=== PATIENT | female | born 1955 | race Caucasian/White ===

== ENCOUNTER 2024-11-29 15:39 | Emergency (ER) | payer MEDICARE, BC, SELFPAY ==
[2024-11-29 15:56] VITALS: BP 147/91; PULSE 68; RESP 16; TEMP 36.2; O2SAT 98; BMI 26.4
--- NOTE | 2024-11-29 16:27 | ED.WOUNDLAC ---
HPI - Wound/Laceration General Time Seen by Provider: 16:27 Date Seen: 11/29/24 Chief Complaint: Laceration/Wound Stated Complaint: possible infection/reaction on R arm Time Seen by Provider: 11/29/24 16:11 Source: patient, RN notes reviewed and old records reviewed Mode of arrival: ambulatory Limitations: no limitations History of Present Illness HPI narrative: 69-year-old female with history of tongue cancer, presents today with right arm pain. She had an IV put in the right wrist last week for a tongue surgery, subsequently had a lot of bruising and swelling in the area which has been improving with warm packing but then today noted increased swelling bruising more proximal to this in the right flexor forearm. She warm pack this and has gotten lot better but she called the nurse line and they told her to come in. 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 No fever, chills, nausea, vomiting, chest pain or shortness of breath. Related Data Home Medications ?Medication ?Instructions ?Recorded ?Confirmed apixaban 5 mg tablet (Eliquis) 5 mg PO BID 11/29/24 11/29/24 cholecalciferol (vitamin D3) 25 25 mcg PO DAILY 11/29/24 11/29/24 mcg (1,000 unit) capsule levothyroxine 100 mcg tablet 100 mcg PO DAILY 11/29/24 11/29/24 (Euthyrox) lisinopril .ROUTE 11/29/24 montelukast 10 mg tablet 10 mg PO DAILY 11/29/24 11/29/24 (Singulair) Allergies Allergy/AdvReac Type Severity Reaction Status Date / Time No Known Drug Allergies Allergy Verified 11/29/24 16:13 Exam Narrative: Exam Narrative: General: well nourished , NAD Head: Atraumatic and normocephalic ENT: External ears and external nose are normal Eyes: Conjunctiva clear, pupils are equal reactive, external ocular motions are intact Neck: Full spontaneous range of motion of the neck Lungs: No respiratory distress Musculoskeletal: No tenderness or deformity Neurologic: No gross focal neurologic deficits Skin: right anterior medial flexor forearm near the elbow there is an area of irregular erythema measuring about 4 cm x 2 cm with a central very tender palpable cord. Psych: Mood and affect are appropriate Const: Vital Signs, click to edit/add: Vital Signs - 24 hr 11/29/24 15:56 Temperature 97.1 F L Pulse Rate [Pulse Oximeter] 68 Respiratory Rate 16 Blood Pressure [Le ft Upper Arm] 147/91 H Pulse Oximetry 98 Oxygen Delivery Me thod Room Air Course Course ED Course: Reviewed prior emergency department visits from July 2024 which were for postoperative pain after having had tongue lesions excised. Patient seen and examined, presents today with a superficial thrombophlebitis of the right forearm. This is little proximal to place where she had IV insertion. On exam she has palpable cord with some surrounding erythema. She says this came on fairly suddenly earlier today but is already improving with warm packing. No systemic signs of infection, patient is already on anticoagulation. Is there is no induration or warmth to the area, infection is unlikely. Treatment with elevation compresses and nonsteroidals. Did consider blood cultures but patient does not have systemic sign of infection, also considered right upper extremity ultrasound but patient is already anticoagulated and exam is not consistent with DVT. Vital Signs Vital signs: Initial Vital Signs Temperature 97.1 F L 11/29/24 15:56 Temperature Source Temporal Artery Scan 11/29/24 15:56 Pulse Rate 68 11/29/24 15:56 Respiratory Rate 16 11/29/24 15:56 Blood Pressure 147/91 H 11/29/24 15:56 Blood Pressure Mean 109 H 11/29/24 15:56 Pulse Oximetry 98 11/29/24 15:56 Oxygen Delivery Method Room Air 11/29/24 15:56 Vital Signs Temperature 97.1 F L 11/29/24 15:56 Pulse Rate 68 11/29/24 15:56 Respiratory Rate 16 11/29/24 15:56 Blood Pressure 147/91 H 11/29/24 15:56 Pulse Oximetry 98 11/29/24 15:56 Oxygen Delivery Method Room Air 11/29/24 15:56 Temperature 97.1 F L 11/29/24 15:56 Pulse Rate 68 11/29/24 15:56 Respiratory Rate 16 11/29/24 15:56 Blood Pressure 147/91 H 11/29/24 15:56 Pulse Oximetry 98 11/29/24 15:56 Oxygen Delivery Method Room Air 11/29/24 15:56 Discharge Plan Discharge Clinical Impression: Superficial thrombophlebitis of right upper extremity Patient Disposition: Home, Self-Care Condition: Stable Instructions: Superficial Thrombophlebitis (ED) Additional Instructions: Continue blood thinners. Apply warm pack as you have been doing. Follow-up if this gets significantly worse or you develop signs of infection including fever or chills. Activity Level: Activity as Tolerated Discharge Diet: Regular Prescriptions: No Action levothyroxine [Euthyrox] 100 mcg tablet 100 mcg PO DAILY Eliquis 5 mg tablet 5 mg PO BID lisinopril .ROUTE montelukast [Singulair] 10 mg tablet 10 mg PO DAILY cholecalciferol (vitamin D3) 25 mcg (1,000 unit) capsule 25 mcg PO DAILY Stand Alone Forms: [email or web address] Info Instructions
--- OUTSIDE RECORDS SUMMARY | 2024-11-29 17:09 | XMS_ITS | Encounter Summary ---
Author Organization [place] Address [address] [place] [address] Care Team Providers Care Chief Talent Officer Name Role Phone Wilber Mittal Primary Care Provider Maxi Tate MD Unavailable [phone] Lela Zapata RN Unavailable Unavailable Mini Frazier MD Unavailable [phone] Nguyen Neal PA-C Unavailable [phone] Maxi Tate MD Unavailable [phone] Mini Frazier MD Unavailable [phone] Mickey Mills MD Primary Care Provider Encounter Details Date Type Department Care Team (Late st Contact Info) Description 01/20/2019 MyC Medical Advice [facility] Ear Nose and Throat [address] [facility] [address] 4th [place] [address] Lela Zapata, RN Social History Tobacco Use Types Packs/Day Years Used Date Smoking Tobacco: Former Cigarettes 0.5 40 0 10/27/1972 - 10/27/2012 Smokeless Tobacco: Never Alcohol Use Standard Drinks/Week Comments Yes 0 (1 standard drink = 0.6 oz pur e alcohol) minimal PHQ-2 Answer Date Recorded PHQ-2 Score 4 10/12/2018 Comments No Sex and Gender Information Value Date Recorded Sex Assigned at Female 02/16/2021 5:23 PM CDT Legal Sex Female 5:02 PM REHABILITATION THERAPY AIDE Gender Identity Female 10/22/2019 10:44 AM REHABILITATION THERAPY AIDE Sexual Orientation Straight 06/04/2019 11 :41 AM CDT documented as of this encounter Plan of Treatment Upcoming Encounters Date Type Department Care Team (Late st Contact Info) Description 12/26/2024 9:30 AM CDT Office Visit [facility] Pain Management [place] [address] [facility] [address] [place] [address] Galina Lopez APRN WIRE BRUSH MAKER [address] [facility] 101 [place], [place] [phone] documented as of this encounter Visit Diagnoses Not on filedocumented in this encounter Additional Health Concerns Assessment Noted Time PHQ-9 Depression Total Score: 6 10/13/19 19 7:05 AM REHABILITATION THERAPY AIDE documented as of this encounter Care Teams Chief Talent Officer Relationship Specialty Start Date End Date Wilber Mittal PCP - General 09/15/12 07/12/23 Mickey Mills MD [address] [place] [address] [phone] PCP - General 07/13/23 Maxi Tate MD [address] [place] [address] [id number] Otolaryngology 10/31/16 Lela Zapata, SHAREE Specialty Paint Mixer ENT-Otolaryngology 01/18/19 Mini Frazier MD [address] [place] [address] [phone] Gastroenterology 08/05/19 Nguyen Neal, PA-C [address] [place] [address] 60968 Assigned Pediatric Specialist Provider 06/08/20 12/08/20 Maix Tate MD [address] [place] [address] [phone] Assigned Surgical Provider 06/08/20 Mini Frazier MD [address] [place] [address] [phone] Assigned Gastroenterology Provider 06/08/20 04/06/21 documented as of this encounter
--- OUTSIDE RECORDS SUMMARY | 2024-11-29 17:09 | XMS_ITS | Encounter Summary ---
Author Organization [place] Address [address] [place] [address] Care Team Providers Care Drip Molder Name Role Phone Wilber Mittal Primary Care Provider Maxi Tate MD Unavailable [phone] Lela Zapata RN Unavailable Unavailable Mini Frazier MD Unavailable [phone] Nguyen Neal PA-C Unavailable [phone] Maxi Tate MD Unavailable [phone] Mini Frazier MD Unavailable [phone] Mickey Mills MD Primary Care Provider [phone] Encounter Details Date Type Department Care Team (Late st Contact Info) Description 06/09/2019 [facility] Medical Advice [facility] Ear Nose and Throat [address] [facility] [address] 4th [place] [address] Maxi Tate MD [address] [facility] 396 [place] [address] Social History Tobacco Use Types Packs/Day Years Used Date Smoking Tobacco: Former Cigarettes 0.5 40 0 10/27/1972 - 10/27/2012 Smokeless Tobacco: Never Alcohol Use Standard Drinks/Week Comments Yes 0 (1 standard drink = 0.6 oz pur e alcohol) minimal PHQ-2 Answer Date Recorded PHQ-2 Score 2 05/03/2019 Comments No Sex and Gender Information Value Date Recorded Sex Assigned at Female 02/16/2021 5:23 PM CDT Legal Sex Female 5:02 PM BINDING CUTTER Gender Identity Female 10/22/2019 10:44 AM BINDING CUTTER Sexual Orientation Straight 06/04/2019 11 :41 AM CDT documented as of this encounter Plan of Treatment Upcoming Encounters Date Type Department Care Team (Late st Contact Info) Description 12/26/2024 9:30 AM CDT Office Visit [facility] Pain Management [place] [address] [place] [address] [place] [address] Galina Lopez APRN SALES PLANNING ANALYST [address] [facility] 101 [place] [address] documented as of this encounter Visit Diagnoses Not on filedocumented in this encounter Additional Health Concerns Assessment Noted Time PHQ-9 Depression Total Score: 6 10/13/19 19 7:05 AM BINDING CUTTER documented as of this encounter Care Teams Drip Molder Relationship Specialty Start Date End Date Wilber Mittal PCP - General 09/15/12 07/12/23 Mickey Mills MD [address] [place] [address] [phone] PCP - General 07/13/23 Maxi Tate MD [address] [facility] 396 [place], [place] [phone] Otolaryngology 10/31/16 Lela Zapata, RN Specialty Program Or Project Administrator ENT-Otolaryngology 01/18/19 Mini Frazier MD 909 [place] [address] Gastroenterology 08/05/19 Nguyen Neal PA-C [address] [place] [address] [phone] Assigned Pediatric Specialist Provider 06/08/20 12/08/20 Maxi Tate MD [address] [place] [address] Assigned Surgical Provider 06/08/20 Mini Frazier MD [address] [place] [address] [phone] Assigned Gastroenterology Provider 06/08/20 04/06/21 documented as of this encounter
--- OUTSIDE RECORDS SUMMARY | 2024-11-29 17:09 | XMS_ITS | Encounter Summary ---
Author Organization [place] Address [address] [place] [address] Care Team Providers Care Stratigraphy Teacher Name Role Phone Wilber Mittal Primary Care Provider [phone] Maxi Tate MD Unavailable [phone] Lela Zapata RN Unavailable Unavailable Mini Frazier MD Unavailable [phone] Nguyen Neal PA-C Unavailable [phone] Maxi Tate MD Unavailable [phone] Mini Frazier MD Unavailable [phone] Mickey Mills MD Primary Care Provider Encounter Details Date Type Department Care Team (Late st Contact Info) Description 10/08/2016 MyC Medical Advice [facility] Ear Nose and Throat [address] [facility] [address] 4th [place] [address] Maxi Tate MD 420 [facility] 396 [place] [address] Social History Tobacco Use Types Packs/Day Years Used Date Smoking Tobacco: Former Cigarettes 0.5 40 0 10/27/1972 - 10/27/2012 Smokeless Tobacco: Never Alcohol Use Standard Drinks/Week Comments Yes 0 (1 standard drink = 0.6 oz pur e alcohol) minimal Comments No Sex and Gender Information Value Date Recorded Sex Assigned at Female 02/16/2021 5:23 PM CDT Legal Sex Female 5:02 PM OIL BURNER REPAIRER Gender Identity Female 10/22/2019 10:44 AM OIL BURNER REPAIRER Sexual Orientation Straight 06/04/2019 11 :41 AM CDT documented as of this encounter Plan of Treatment Upcoming Encounters Date Type Department Care Team (Late st Contact Info) Description 12/26/2024 9:30 AM CDT Office Visit [facility] [place] [address] [place] [address] [place] [address] Galina Lopez APRN TOWER HAND 1600 [facility] 101 [place] [address] documented as of this encounter Visit Diagnoses Not on filedocumented in this encounter Care Teams Stratigraphy Teacher Relationship Specialty Start Date End Date Wilber Mittal PCP - General 09/15/12 07/12/23 Mickey Mills MD [address] [place] [phone] PCP - General 07/13/23 Maix Tate MD [address] [place] [address] 396 [place], [place] 160[address] Otolaryngology 10/31/16 Lela Zapata, SHAREE Specialty Biology Research Assistant ENT-Otolaryngology 01/18/19 Mini Frazier MD [address] [place] [address] [phone] Gastroenterology 08/05/19 Nguyen Neal, PA-C [address] [place] [address] [phone] Assigned Pediatric Specialist Provider 06/08/20 12/08/20 Maxi Tate MD [address] [place] [address] 396 [place], [place] [phone] Assigned Surgical Provider 06/08/20 Mini Frazier MD [address] [place] [address] Assigned Gastroenterology Provider 06/08/20 04/06/21 documented as of this encounter
--- OUTSIDE RECORDS SUMMARY | 2024-11-29 17:09 | XMS_ITS | Encounter Summary ---
Author Organization [place] Address [address] [place] [address] Care Team Providers Care Cloth Washer Name Role Phone Wilber Mittal Primary Care Provider Maxi Tate MD Unavailable Lela Zapata RN Unavailable Unavailable Mini Frazier MD Unavailable [phone] Nguyen Neal PA-C Unavailable [phone] Maxi Tate MD Unavailable [phone] Mini Frazier MD Unavailable [phone] Mickey Mills MD Primary Care Provider Reason for Visit * Reason Onset Date Comments Refill Request 06/13/2019 Encounter Details Date Type Department Care Team (Late st Contact Info) Description 06/13/2019 MyC Refill [facility] Ear Nose and Throat [address] [facility] 4th [place] [address] Nguyen Neal PA-C 909 [place] [address] Refill Request Social History Tobacco Use Types Packs/Day Years [...] PM CDT Legal Sex Female 5:02 PM TAX FORM PREPARER Gender Identity Female 10/22/2019 10:44 AM TAX FORM PREPARER Sexual Orientation Straight 06/04/2019 11 :41 AM CDT documented as of this encounter Plan of Treatment Upcoming Encounters Date Type Department Care Team (Late st Contact Info) Description 12/26/2024 9:30 AM CDT Office Visit [facility] Pain Management [place] [address] [place] [address] [address] [place] [address] Galina Lopez APRN SHOWER ATTENDANT 1600 [facility] 101 [place] [address] documented as of this encounter Visit Diagnoses Diagnosis Lesion of tongue Other specified conditions of the tongue Tongue pain 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 documented in this encounter Additional Health Concerns Assessment Noted Time PHQ-9 Depression Total Score: 6 10/13/19 19 7:05 AM TAX FORM PREPARER documented as of this encounter Care Teams Cloth Washer Relationship Specialty Start Date End Date Wilber Mittal PCP - General 09/15/12 07/12/23 Mickey Mills MD [address] [place] [address] [phone] PCP - General 07/13/23 Maxi Tate MD [address] [place] [address] 396 [place] [address] Otolaryngology 10/31/16 Lela Zapata, SHAREE Specialty Driver Starting Gate ENT-Otolaryngology 01/18/19 Mini Frazier MD 909 [place] [address] Gastroenterology 08/05/19 Nguyen Neal PA-C [address] [place] [address] Assigned Pediatric Specialist Provider 06/08/20 12/08/20 Maxi Tate MD [address] [place] [address] Assigned Surgical Provider 06/08/20 Mini Frazier MD [address] [place] [address] Assigned Gastroenterology Provider 06/08/20 04/06/21 documented as of this encounter
--- OUTSIDE RECORDS SUMMARY | 2024-11-29 17:09 | XMS_ITS | Encounter Summary ---
Author Organization [place] Address [address] [place] [address]. [place] [address] Care Team Providers Care Supervisor Self Service Store Name Role Phone Wilber Mittal Primary Care Provider Maxi Tate MD Unavailable [phone] Lela Zapata RN Unavailable Unavailable Mini Frazier MD Unavailable [phone] Nguyen Neal PA-C Unavailable [phone] Maxi Tate MD Unavailable [phone] Mini Frazier MD Unavailable [phone] Mickey Mills MD Primary Care Provider [phone] Encounter Details Date Type Department Care Team (Late st Contact Info) Description 06/23/2020 MyC Medical Advice [facility] Th[facility] [place] [address] [facility] [address] 4th [place] [address] Maxi aTte MD [address] [place] [address] 396 [place] [address] Social History Tobacco Use Types Packs/Day Years Used Date Smoking Tobacco: Former Cigarettes 0.5 40 0 10/27/1972 - 10/27/2012 Smokeless Tobacco: Never Alcohol Use Standard Drinks/Week Comments Not Currently 0 (1 standard drink = 0.6 oz pur e alcohol) PHQ-2 Answer Date Recorded PHQ-2 Score 2 01/03/2020 Comments No Sex and Gender Information Value Date Recorded Sex Assigned at Female 02/16/2021 5:23 PM CDT Legal Sex Female 5:02 PM CUSTOMER SERVICE DISPATCHER Gender Identity Female 10/22/2019 10:44 AM CUSTOMER SERVICE DISPATCHER Sexual Orientation Straight 06/04/2019 11 :41 AM CDT COVID-19 Exposure Response Date Recorded In the last month, have you been in contact with someone who was confirmed or suspected to have Coronavirus / COVID-19? No / Unsure 05/29/2020 2:20 PM CDT documented as of this encounter Plan of Treatment Upcoming Encounters Date Type Department Care Team (Late st Contact Info) Description 12/26/2024 9:30 AM CDT Office Visit [facility] Pain Management [place] [address] [facility] [address] [place] [address] Galina Lopez APRN VISCOSE DEPARTMENT WORKER 1600 [facility] 101 [place] [address] documented as of this encounter Visit Diagnoses Not on filedocumented in this encounter Additional Health Concerns Assessment Noted Time PHQ-9 Depression Total Score: 6 08/02/20 19 10:51 AM CUSTOMER SERVICE DISPATCHER documented as of this encounter Care Teams Supervisor Self Service Store Relationship Specialty Start Date End Date Wilber Mittal PCP - General 09/15/12 07/12/23 Mickey Mills MD [address] [place] [address] [phone] PCP - General 07/13/23 Maxi Tate MD [address] [place] [address] 396 [place] [address] Otolaryngology 10/31/16 Lela Zapata, SHAREE Specialty Pool Table Mechanic ENT-Otolaryngology 01/18/19 Mini Frazier MD 909 [place] [address] Gastroenterology 08/05/19 Nguyen Neal PA-C [address] [place] [address] Assigned Pediatric Specialist Provider 06/08/20 12/08/20 Maxi Tate MD [address] [place] [address] [phone] Assigned Surgical Provider 06/08/20 Mini Frazier MD [address] [place] [address] Assigned Gastroenterology Provider 06/08/20 04/06/21 documented as of this encounter
--- OUTSIDE RECORDS SUMMARY | 2024-11-29 17:09 | XMS_ITS | Encounter Summary ---
Author Organization [place] Address [address] [place] [address] Care Team Providers Care Group Work Program Aide Name Role Phone Wilber Mittal Primary Care Provider Maxi Tate MD Unavailable [phone] Lela Zapata RN Unavailable Unavailable Mini Frazier MD Unavailable [phone] Nguyen Neal PA-C Unavailable [phone] Maxi Tate MD Unavailable [phone] Mini Frazier MD Unavailable [phone] Mickey Mills MD Primary Care Provider Encounter Details Date Type Department Care Team (Late st Contact Info) Description 06/15/2020 MyC Medical Advice [address] 5th [place] [address] Veronica Doan, RN Social History Tobacco Use Types Packs/Day [...] PM CDT Legal Sex Female 5:02 PM WHITE SPOOLER Gender Identity Female 10/22/2019 10:44 AM WHITE SPOOLER Sexual Orientation Straight 06/04/2019 11 :41 AM [...] Description 12/26/2024 9:30 AM CDT Office Visit [facility] [place] [address] [place] [address] [place] [address] Galina Lopez APRN GLASS CALIBRATOR 1600 [facility] 101 [place] [address] documented as of this encounter Visit Diagnoses Not on filedocumented in this encounter Additional Health Concerns Assessment Noted Time PHQ-9 Depression Total Score: 6 08/02/20 19 10:51 AM WHITE SPOOLER documented as of this encounter Care Teams Group Work Program Aide Relationship Specialty Start Date End Date Wilber Mittal PCP - General 09/15/12 07/12/23 Mickey Mills MD [address] [place] [phone] PCP - General 07/13/23 Maxi Tate MD 420 [facility] 396 [place], [place] [phone] Otolaryngology 10/31/16 Lela Zapata, SHAREE Specialty Division Roadmaster ENT-Otolaryngology 01/18/19 Mini Frazier MD [address] [place] [address] Gastroenterology 08/05/19 Nguyen Neal, WENC [address] [place] [address] Assigned Pediatric Specialist Provider 06/08/20 12/08/20 Maxi Tate MD [address] [place] [address] Assigned Surgical Provider 06/08/20 Mini Frazier MD [address] [place] [address] Assigned Gastroenterology Provider 06/08/20 04/06/21 documented as of this encounter
--- OUTSIDE RECORDS SUMMARY | 2024-11-29 17:09 | XMS_ITS | Encounter Summary ---
Author Organization [place] Address [address] [place] [address] Care Team Providers Care Supervisor Industrial Garment Name Role Phone Wilber Mittal Primary Care Provider [phone] Maxi Tate MD Unavailable [phone] Lela Zapata RN Unavailable Unavailable Mini Frazier MD Unavailable [phone] Nguyen Neal PA-C Unavailable [phone] Maxi Tate MD Unavailable [phone] Mini Frazier MD Unavailable [phone] Mickey Mills MD Primary Care Provider [phone] Encounter Details Date Type Department Care Team (Late st Contact Info) Description 11/09/2018 [facility] Medical [facility] and Th[facility] [address] [facility] [address] 4th [place] [address] Maxi Tate MD 420 [facility] 396 [place] [address] Social History Tobacco Use Types [...] PM CDT Legal Sex Female 5:02 PM JOURNAL ENTRY AUDIT CLERK Gender Identity Female 10/22/2019 10:44 AM JOURNAL ENTRY AUDIT CLERK Sexual Orientation Straight 06/04/2019 11 :41 AM CDT documented as of this encounter Plan of Treatment Upcoming Encounters Date Type Department Care Team (Late st Contact Info) Description 12/26/2024 9:30 AM CDT Office Visit [facility] Pain Management [place] [address] [place] [address] [place] [address] Galina Lopez APRN WELL TENDER 1600 [facility] [address] [place] [address] documented as of this encounter Visit Diagnoses Not on filedocumented in this encounter Additional Health Concerns Assessment Noted Time PHQ-9 Depression Total Score: 6 10/13/19 19 7:05 AM JOURNAL ENTRY AUDIT CLERK documented as of this encounter Care Teams Supervisor Industrial Garment Relationship Specialty Start Date End Date Wilber Mittal PCP - General 09/15/12 07/12/23 Mickey Mills MD [address] [place] [phone] PCP - General 07/13/23 Maxi Tate MD 420 [facility] 396 [place], [place] [phone] Otolaryngology 10/31/16 Lela Zapata, RN Specialty Manager Cardiac Cath ENT-Otolaryngology 01/18/19 Mini Frazier MD 909 [place] [address] Gastroenterology 08/05/19 Nguyen Neal PA-C [address] [place] [address] [phone] Assigned Pediatric Specialist Provider 06/08/20 12/08/20 Maxi Tate MD [address] [place] [address] Assigned Surgical Provider 06/08/20 Mini Frazier MD [address] [place] [address] [phone] Assigned Gastroenterology Provider 06/08/20 04/06/21 documented as of this encounter
--- OUTSIDE RECORDS SUMMARY | 2024-11-29 17:09 | XMS_ITS | Encounter Summary ---
Author Organization [facility] Address [address] [place] [address] Care Team Providers Care Procurement Specialist Name Role Phone Wilber Mittal Primary Care Provider Maxi [place] MD Unavailable [phone] Lela Zapata RN Unavailable Unavailable Mini Frazier MD Unavailable [phone] Nguyen Neal PA-C Unavailable [phone] Maxi [place] MD Unavailable [phone] Mini Frazier MD Unavailable [phone] Mickey Mills MD Primary Care Provider Encounter Details Date Type Department Care Team (Late st Contact Info) Description 06/27/2019 [facility] [place] [facility] and Th[facility]at [address] [facility] [address] 4th [place] [address] Maxi [place] MD 420 [facility] 396 [place] [address] Social History Tobacco Use Types [...] PM CDT Legal Sex Female 5:02 PM PERSONAL FINANCIAL REPRESENTATIVE Gender Identity Female 10/22/2019 10:44 AM PERSONAL FINANCIAL REPRESENTATIVE Sexual Orientation Straight 06/04/2019 11 :41 AM CDT documented as of this encounter Plan of Treatment Upcoming Encounters Date Type Department Care Team (Late st Contact Info) Description 12/26/2024 9:30 AM CDT Office Visit [facility] [place] [address] [place] [address] Galina Lopez APRN STEEL SHOT HEADER OPERATOR [address] [facility] [address] [place] [address] documented as of this encounter Visit Diagnoses Not on filedocumented in this encounter Additional Health Concerns Assessment Noted Time PHQ-9 Depression Total Score: 6 10/13/19 19 7:05 AM PERSONAL FINANCIAL REPRESENTATIVE documented as of this encounter Care Teams Procurement Specialist Relationship Specialty Start Date End Date Wilber Mittal PCP - General 09/15/12 07/12/23 Mickey Mills MD [address] [place] [address] [phone] PCP - General 07/13/23 Maxi [place] MD 420 [facility] 396 [place], [place] 402[address] Otolaryngology 10/31/16 Lela Zapata, RN Specialty Burrer Machine ENT-Otolaryngology 01/18/19 Mini Frazier MD 909 [place] [address] Gastroenterology 08/05/19 Nguyen Neal PA-C [address] [place] [address] [phone] Assigned Pediatric Specialist Provider 06/08/20 12/08/20 Maxi Tate MD [address] [place] [address] Assigned Surgical Provider 06/08/20 Mini Frazeir MD [address] [place] [address] [phone] Assigned Gastroenterology Provider 06/08/20 04/06/21 documented as of this encounter
--- OUTSIDE RECORDS SUMMARY | 2024-11-29 17:09 | XMS_ITS | Encounter Summary ---
Author Organization [facility] Address [address] [place] [address] Care Team Providers Care Drying Rack Changer Name Role Phone Wilber Mittal Primary Care Provider Maxi [place] MD Unavailable [phone] Lela Zapata RN Unavailable Unavailable Mini Frazier MD Unavailable [phone] Nguyen Neal PA-C Unavailable [phone] Maxi [place] MD Unavailable [phone] Mini Frazier MD Unavailable [phone] Mickey Mills MD Primary Care Provider Encounter Details Date Type Department Care Team (Late st Contact Info) Description 12/25/2018 [facility] Medical Advice [facility] Ear Nose and Throat [address] [facility] [address] 4th [place] [address] Maxi [place] MD 420 [facility] 396 [place] [address] Social History Tobacco Use Types [...] PM CDT Legal Sex Female 5:02 PM CYCLE TOURING GUIDE Gender Identity Female 10/22/2019 10:44 AM CYCLE TOURING GUIDE Sexual Orientation Straight 06/04/2019 11 :41 AM CDT documented as of this encounter Plan of Treatment Upcoming Encounters Date Type Department Care Team (Late st Contact Info) Description 12/26/2024 9:30 AM CDT Office Visit [facility] [place] [address] [place] [address] Galina Lopez APRN APARTMENT ASSISTANT MANAGER 1600 [facility] [address] [place] [address] documented as of this encounter Visit Diagnoses Not on filedocumented in this encounter Additional Health Concerns Assessment Noted Time PHQ-9 Depression Total Score: 6 10/13/19 19 7:05 AM CYCLE TOURING GUIDE documented as of this encounter Care Teams Drying Rack Changer Relationship Specialty Start Date End Date Wilber Mittal PCP - General 09/15/12 07/12/23 Mickey Mills MD [address] [place] [address] [phone] PCP - General 07/13/23 Maxi [place] MD 420 [facility] 396 [place], [place] 324945 Otolaryngology 10/31/16 Lela Zapata, RN Specialty Quartz Mounter ENT-Otolaryngology 01/18/19 Mini Frazier MD 909 [place] [address] Gastroenterology 08/05/19 Nguyen Neal PA-C [address] [place] [address] [phone] Assigned Pediatric Specialist Provider 06/08/20 12/08/20 Maxi Tate MD [address] [place] [address] Assigned Surgical Provider 06/08/20 Mini Frazier MD [address] [place] [address] [phone] Assigned Gastroenterology Provider 06/08/20 04/06/21 documented as of this encounter
--- OUTSIDE RECORDS SUMMARY | 2024-11-29 17:09 | XMS_ITS | Encounter Summary ---
Author Organization [facility] Address [address] [place] [address] Care Team Providers Care Escalator Attendant Name Role Phone Wilber Mittal Primary Care Provider [phone] Maxi [place] MD Unavailable [phone] Lela Zapata RN Unavailable Unavailable Mini Frazier MD Unavailable [phone] Nguyen Neal PA-C Unavailable [phone] Maxi [place] MD Unavailable [phone] Mini Frazier MD Unavailable [phone] Mickey Mills MD Primary Care Provider [phone] Encounter Details Date Type Department Care Team (Late st Contact Info) Description 01/28/2019 [facility] Medical Advice [facility] Ear Nose and Throat 909 [facility] [address] 4th [place] [address] Lela Zapata, RN Social History [...] PM CDT Legal Sex Female 5:02 PM MAILROOM PERSONNEL Gender Identity Female 10/22/2019 10:44 AM MAILROOM PERSONNEL Sexual Orientation Straight 06/04/2019 11 :41 AM CDT documented as of this encounter Plan of Treatment Upcoming Encounters Date Type Department Care Team (Late st Contact Info) Description 12/26/2024 9:30 AM CDT Office Visit [facility] [place] [address] [facility] [address] [place] [address] Galina Lopez APRN SEAFOOD FISHERMAN 1600 [facility] 101 [place], [place] [phone] documented as of this encounter Visit Diagnoses Not on filedocumented in this encounter Additional Health Concerns Assessment Noted Time PHQ-9 Depression Total Score: 6 10/13/19 19 7:05 AM MAILROOM PERSONNEL documented as of this encounter Care Teams Escalator Attendant Relationship Specialty Start Date End Date Wilber Mittal PCP - General 09/15/12 07/12/23 Mickey Mills MD [address] [place] [address] [phone] PCP - General 07/13/23 Maxi [place] MD [address] [place] [address] 032235 Otolaryngology 10/31/16 Lela Zapata, SHAREE Specialty Rn Recruitment ENT-Otolaryngology 01/18/19 Mini Frazier MD [address] [place] [address] [phone] Gastroenterology 08/05/19 Nguyen Neal, PA-C [address] [place] [address] Assigned Pediatric Specialist Provider 06/08/20 12/08/20 Maxi [place] MD [address] [place] [address] [phone] Assigned Surgical Provider 06/08/20 Mini Frazier MD [address] [place] [address] 555115 Assigned Gastroenterology Provider 06/08/20 04/06/21 documented as of this encounter
--- OUTSIDE RECORDS SUMMARY | 2024-11-29 17:09 | XMS_ITS | Clinical Summary ---
Author Organization [facility] Address [address] [place] [address] Care Team Providers Care Grain Loader Name Role Phone Mickey Mills Primary Care Provider Allergies Active Allergy Reactions Criticality Noted Date Comments Warfarin Tongue Swelling High 08/11/2024 Medications sodium chloride 0.9% 0.9 % irrigation Irrigate 20 cc each nostril QID X 2 month supply 16690 mL 3 08/24/19 13 Active levothyroxine (SYNTHROID) 75 mcg tablet TAKE 1 TABLET BY MOUTH EVERY MORNING 30 tablet 6 08/22/19 14 Active PROAIR HFA 90 mcg/actuation inhaler INHALE 2 PUFFS BY MOUTH EVERY 4 TO 6 HOURS NEEDED 8.5 g 2 03/05/20 14 Active acetaminophen (TYLENOL) 325 mg tablet Take 325-650 mg by mouth every 6 hours if needed. Active Eliquis 5 mg tabletIndications :Infarction Spleen Take 5 mg by mouth two times daily. 07/13/20 24 Active gabapentin (NEURONTIN) 100 mg capsule Take 100 mg by mouth three times daily. 02/23/20 24 Active lisinopriL (PRINIVIL; ZESTRIL) 20 mg tablet Take 20 mg by mouth once daily. 07/13/20 24 025 Active montelukast (SINGULAIR) 10 mg tablet Take 1 Tablet by mouth at bedtime. 06/13/20 24 Active nystatin (MYCOSTATIN) 100,000 unit/mL suspension TAKE 1 TEASPOONFUL BY MOUTH FOUR TIMES A DAY Active omeprazole (PRILOSEC) 20 mg Delayed-Release capsule Take 20 mg by mouth once daily before a meal. Active ondansetron (ZOFRAN ODT) 4 mg disintegrating tablet Take 4 mg by mouth every 8 hours if needed. 08/01/20 24 Active sennosides-docusa te (SENOKOT S) (8.6-50 mg) tablet Take 1-2 Tablets by mouth two times daily. 08/01/20 Active cholecalciferol (Vitamin D) 1,000 unit tablet Take 1 Tablet (25 mcg) by mouth once daily. 90 Tablet 1 5 1:54 PM BUFFER CHROME 09/20/19 25 Active Lidocaine Viscous 2 % liquid Swish and spit 15 mL by mouth every 3 hours if needed for pain. Max 8 doses/24 hour period. 500 mL 3 5 4:14 PM CDT 11/16/19 25 Active oxyCODONE 5 mg immediate release tablet Take 1 Tablet (5 mg) by mouth every 3 hours if needed for pain. 30 Tablet 5 3:24 PM CDT 11/16/19 25 Active magic mouthwash 1:1:1 (diphen 12.5mg/5mL-lidoca ine 2%-maalox [id number]/5ml) (AMB MIX) Swish and swallow 10 mL by mouth every 6 hours if needed for mouth sores. Does not require refrigeration but feels better on sores when kept cold. 500 mL 2 11/25/19 25 Active Lidocaine Viscous 2 % liquid Swish and spit 15 mL by mouth every 4 hours if needed. SWISH AND SPIT 15MLS IN MOUTH EVERY 4 HOURS NEEDED FOR PAIN; MAX 8 DOSES / 24HRS PERIOD. 025 Discontin ued(Reord er (E-cancel not sent)) magic mouthwash 1:1:1 (diphen 12.5mg/5mL-lidoca ine 2%-maalox [id number]/5ml) (AMB MIX)Indications:M outh pain,Postoperativ e pain Take 5 mL by mouth every 4 hours if needed for Mouth Sores. 500 mL 3 5 3:43 PM CDT 08/12/20 24 025 Discontin ued(Reord er (E-cancel not sent)) rx oxyCODONE 5 mg (ROXICODONE) tablet (ED DC MED)Indications:M outh pain,Postoperativ e pain Take 1-2 Tablets (5-10 mg) by mouth every 4 hours if needed for Pain. 4 Tablet 08/12/20 24 025 Discontin ued(Reord er (E-cancel not sent)) oxyCODONE (ROXICODONE) 5 mg immediate release tabletIndications :Mouth pain Take 1-2 Tablets (5-10 mg) by mouth every 4 hours if needed for Pain. 13 Tablet 08/12/20 24 025 Discontin ued(Reord er (E-cancel not sent)) oxyCODONE (ROXICODONE) 5 mg immediate release tablet Take 1 Tablet (5 mg) by mouth every 4 hours if needed for pain. 30 Tablet 5 2:39 PM BUFFER CHROME 08/23/19 025 Discontin ued(Reord er (E-cancel not sent)) Active Problems Problem Noted Date Diagnosed Date Personal history of colonic polyps 12/06/2012 Personal history of colonic polyps 12/06/2012 Tongue cancer Family History Medical History Relation Name Comments Cancer Father back Hypertension Father Cancer-breast Maternal Aunt Cancer-colon Maternal Aunt Diabetes Mother Heart Disease Mother Osteoporosis Mother Heart Disease Paternal Uncle Cancer Sister bladder Hypertension Sister Stroke Sister Relation Name Status Comments Father Maternal Aunt Mother Paternal Uncle Sister Social History Tobacco Use Types Packs/Day Years Used Date Smoking Tobacco: Former Smokeless Tobacco: Never Tobacco Cessation:Ready to Q uit: No; Counseling Given: Yes Alcohol Use Standard Drinks/Week Comments No 0 (1 standard drink = 0.6 oz pur e alcohol) Interpersonal Safety Answer Date Record ed Are you being hit, kicked, p ushed or yelled at (see row info)? No 08/11/2024 Interpersonal Safety Abuse 12 - 18 Not on file 08/11/2024 Interpersonal Safety Ambulatory Vulnerability No t on file 08/11/2024 Comments No Sex and Gender Information Value Date Recorded Sex Assigned at Not on file Legal Sex Female 8:27 AM BUFFER CHROME Gender Identity Not on file Sexual Orientation Not on file Occupation Industry Job Start Date Job End Date Not on file Not on file Not on file Not on file Obstetrics History Last Filed Vital Signs Vital Sign Reading Time Taken Comments Blood Pressure 113/72 08/12/2024 12:52 AM BUFFER CHROME Pulse 60 08/12/2024 12:52 AM BUFFER CHROME Temperature 36.1 C (97 F) 08/11/2024 11:55 PM BUFFER CHROME Respiratory Rate 14 08/12/2024 12:52 AM BUFFER CHROME Oxygen Saturation 94% 08/12/2024 12:52 AM BUFFER CHROME Inhaled Oxygen Concentration - - Weight 71.7 kg (158 lb) 08/11/2024 11:53 PM BUFFER CHROME Height 162.6 cm (5' 4) 08/11/2024 11:53 PM BUFFER CHROME Body Mass Index 27.12 08/11/2024 11:53 PM BUFFER CHROME Plan of Treatment Health Maintenance Due Date Last Done Comments Influenza Vaccine (Season Ended) 2025 RSV vaccine for adults or pr egnancy (1 - 1-dose 75+ series) 2029 Insurance [place] ONLY MEDICARE PART B HB ONLY MEDICARE PART A HB ONLY [place] BL[place] MR PB ONLY Care Teams Grain Loader Relationship Specialty Start Date End Date Mickey Mills MBBS [address] [place] [address] [place] [address] PCP - General Family Practice 12/03/20
--- OUTSIDE RECORDS SUMMARY | 2024-11-29 17:09 | XMS_ITS | Encounter Summary ---
Author Organization [facility] Address [address] [place] [address] Care Team Providers Care Gas Pumper Name Role Phone Wilber Mittal Primary Care Provider [phone] Maxi Tate MD Unavailable [phone] Lela Zapata RN Unavailable Unavailable Mini Frazier MD Unavailable [phone] Nguyen Neal PA-C Unavailable [phone] Maxi Tate MD Unavailable [phone] Mini Frazier MD Unavailable [phone] Mickey Mills MD Primary Care Provider Encounter Details Date Type Department Care Team (Late st Contact Info) Description 04/23/2019 [facility] Medical Advice [facility] Th[facility]at 9[address] [facility] [address] 4th [place] [address] Maxi Tate MD 420 [facility] 396 [place] [address] Social History Tobacco Use Types [...] PM CDT Legal Sex Female 5:02 PM SUPERVISOR QUILTING Gender Identity Female 10/22/2019 10:44 AM SUPERVISOR QUILTING Sexual Orientation Straight 06/04/2019 11 :41 AM CDT documented as of this encounter Plan of Treatment Upcoming Encounters Date Type Department Care Team (Late st Contact Info) Description 12/26/2024 9:30 AM CDT Office Visit [facility] Pain Management [place] [address] [place] [address] Galina Lopez APRN RESIDENCE LIFE DIRECTOR 1600 [facility] [address] [place] [address] documented as of this encounter Visit Diagnoses Not on filedocumented in this encounter Additional Health Concerns Assessment Noted Time PHQ-9 Depression Total Score: 6 10/13/19 19 7:05 AM SUPERVISOR QUILTING documented as of this encounter Care Teams Gas Pumper Relationship Specialty Start Date End Date Wilber Mittal PCP - General 09/15/12 07/12/23 Mickey Mills MD [address] [place] [address] [phone] PCP - General 07/13/23 Maxi Tate MD 420 [facility] 396 [place], [place] [phone] Otolaryngology 10/31/16 Lela Zapata, RN Specialty Care Transport Nurse ENT-Otolaryngology 01/18/19 Mini Frazier MD 909 [place] [address] Gastroenterology 08/05/19 Nguyen Neal PA-C [address] [place] [address] [phone] Assigned Pediatric Specialist Provider 06/08/20 12/08/20 Maxi Tate MD [address] [place] [address] Assigned Surgical Provider 06/08/20 Mini Frazier MD [address] [place] [address] [phone] Assigned Gastroenterology Provider 06/08/20 04/06/21 documented as of this encounter
--- OUTSIDE RECORDS SUMMARY | 2024-11-29 17:09 | XMS_ITS | Encounter Summary ---
Author Organization [facility] Address [address] [place] [address] Care Team Providers Care Submarine Worker Name Role Phone Wilber Mittal Primary Care Provider Maxi Tate MD Unavailable [phone] Lela Zapata RN Unavailable Unavailable Mini Frazier MD Unavailable [phone] Nguyen Neal PA-C Unavailable [phone] Maxi Tate MD Unavailable [phone] Mini Frazier MD Unavailable [phone] Mickey Mills MD Primary Care Provider Encounter Details Date Type Department Care Team (Late st Contact Info) Description 03/24/2018 MyC Medical Advice [facility] Ear Nose and Throat 909 [facility] [address] 4th [place] [address] Maxi Tate MD 420 [facility] 396 [place] [address] Social History Tobacco Use Types Packs/Day Years Used Date Smoking Tobacco: Former Cigarettes 0.5 40 0 10/27/1972 - 10/27/2012 Smokeless Tobacco: Never Alcohol Use Standard Drinks/Week Comments Yes 0 (1 standard drink = 0.6 oz pur e alcohol) minimal Comments No Sex and Gender Information Value Date Recorded Sex Assigned at Female 02/16/2021 5:23 PM CDT Legal Sex Female 5:02 PM PULP MIXER Gender Identity Female 10/22/2019 10:44 AM PULP MIXER Sexual Orientation Straight 06/04/2019 11 :41 AM CDT documented as of this encounter Plan of Treatment Upcoming Encounters Date Type Department Care Team (Late st Contact Info) Description 12/26/2024 9:30 AM CDT Office Visit [facility] [place] [address] [place] [address] [place] [address] Galina Lopez APRN ENVIRONMENTAL REMEDIATION CONSULTANT 1600 [facility] 101 [place] [address] documented as of this encounter Visit Diagnoses Not on filedocumented in this encounter Care Teams Submarine Worker Relationship Specialty Start Date End Date Wilber Mittal PCP - General 09/15/12 07/12/23 Mickey Mills MD [address] [place] [phone] PCP - General 07/13/23 Maxi Tate MD [address] [place] [address] 396 [place], [place] 235[address] Otolaryngology 10/31/16 Lela Zapata, SHAREE Specialty Station Cleaning Porter ENT-Otolaryngology 01/18/19 Mini Frazier MD [address] [place] [address] [phone] Gastroenterology 08/05/19 Nguyen Neal, PA-C [address] [place] [address] [phone] Assigned Pediatric Specialist Provider 06/08/20 12/08/20 Maxi Tate MD [address] [place] [address] 396 [place], [place] [phone] Assigned Surgical Provider 06/08/20 Mini Frazier MD [address] [place] [address] Assigned Gastroenterology Provider 06/08/20 04/06/21 documented as of this encounter
--- OUTSIDE RECORDS SUMMARY | 2024-11-29 17:09 | XMS_ITS | Encounter Summary ---
Author Organization [facility] Address [address] [place] [address]. [place] [address] Care Team Providers Care Bistro Attendant Name Role Phone Wilber Mittal Primary Care Provider Maxi [place] MD Unavailable [phone] Lela Zapata RN Unavailable Unavailable Mini Frazier MD Unavailable [phone] Nguyen Neal PA-C Unavailable [phone] Maxi [place] MD Unavailable [phone] Mini Frazier MD Unavailable [phone] Mickey Mills MD Primary Care Provider [phone] Encounter Details Date Type Department Care Team (Late st Contact Info) Description 11/14/2014 [facility] [place] Medical Advice [facility] 1st Floor, Clinic 1E 6 [place] [phone] Katie Linares Social History Tobacco Use Types Packs/Day Years Used Date Smoking Tobacco: Former Cigarettes 0.5 40 0 10/27/1972 - 10/27/2012 Smokeless Tobacco: Never Alcohol Use Standard Drinks/Week Comments Yes 0 (1 standard drink = 0.6 oz pur e alcohol) Very rare Comments No Sex and Gender Information Value Date Recorded Sex Assigned at Female 02/16/2021 5:23 PM CDT Legal Sex Female 5:02 PM DRAGLINE MECHANIC Gender Identity Female 10/22/2019 10:44 AM DRAGLINE MECHANIC Sexual Orientation Straight 06/04/2019 11 :41 AM CDT documented as of this encounter Plan of Treatment Upcoming Encounters Date Type Department Care Team (Late st Contact Info) Description 12/26/2024 9:30 AM CDT Office Visit [facility] Management [place] [address] [place] [address] [place] [address] Galina Lopez APRN DERRICK HAND 1600 [facility] [address] [place] [address] documented as of this encounter Visit Diagnoses Not on filedocumented in this encounter Care Teams Bistro Attendant Relationship Specialty Start Date End Date Wilber Mittal PCP - General 09/15/12 07/12/23 Mickey Mills MD [address] [place] [phone] PCP - General 07/13/23 Maxi [place] MD [address] [place] [address] 396 [place] [address] Otolaryngology 10/31/16 Lela Zapata, SHAREE Specialty Welfare Worker ENT-Otolaryngology 01/18/19 Mini Frazier MD [address] [place] [address] [phone] Gastroenterology 08/05/19 Nguyen Neal, PACorrineC [address] [place] [address] Assigned Pediatric Specialist Provider 06/08/20 12/08/20 Maxi [place] MD 420 [facility] 396 [place] [address] Assigned Surgical Provider 06/08/20 Mini Frazier MD [address] [place] [address] Assigned Gastroenterology Provider 06/08/20 04/06/21 documented as of this encounter
--- OUTSIDE RECORDS SUMMARY | 2024-11-29 17:09 | XMS_ITS | Encounter Summary ---
Author Organization [facility] Address [address] [place] [address] Care Team Providers Care Machine Candle Molder Name Role Phone Wilber Mittal Primary Care Provider Maxi [place] MD Unavailable [phone] Lela Zapata RN Unavailable Unavailable Mini Frazier MD Unavailable [phone] Nguyen Neal PA-C Unavailable [phone] Maxi [place] MD Unavailable [phone] Mini Frazier MD Unavailable [phone] Mickey Mills MD Primary Care Provider Encounter Details Date Type Department Care Team (Late st Contact Info) Description 06/17/2020 MyC Medical Advice [facility] 909 [facility] SE 5th [place] [address] Maxi [place] MD [address] [address] Social History Tobacco Use Types Packs/Day [...] PM CDT Legal Sex Female 5:02 PM KENNEL HELPER Gender Identity Female 10/22/2019 10:44 AM KENNEL HELPER Sexual Orientation Straight 06/04/2019 11 :41 AM [...] Description 12/26/2024 9:30 AM CDT Office Visit [facility] [place] [address] [facility] [address] [place] [address] Galina Lopez APRN MINISTER HELPER 1600 [facility] 101 [place] [address] documented as of this encounter Visit Diagnoses Not on filedocumented in this encounter Additional Health Concerns Assessment Noted Time PHQ-9 Depression Total Score: 6 08/02/20 19 10:51 AM KENNEL HELPER documented as of this encounter Care Teams Machine Candle Molder Relationship Specialty Start Date End Date Wilber Mittal PCP - General 09/15/12 07/12/23 Mickey Mills MD [address] [place] [phone] PCP - General 07/13/23 Maxi [place] MD [address] [place] [address] 396 [place] [address] Otolaryngology 10/31/16 Lela Zapata, SHAREE Specialty Clinical Nursing Intern ENT-Otolaryngology 01/18/19 Mini Frazier MD 9 [place] [address] Gastroenterology 08/05/19 Nguyen Neal PA-C [address] [place] [address] Assigned Pediatric Specialist Provider 06/08/20 12/08/20 Maxi [place] MD [address] [place] [address] 396 [place], [place] [phone] Assigned Surgical Provider 06/08/20 Mini Frazier MD [address] [place] [address] Assigned Gastroenterology Provider 06/08/20 04/06/21 documented as of this encounter
--- OUTSIDE RECORDS SUMMARY | 2024-11-29 17:09 | XMS_ITS | Encounter Summary ---
Author Organization [facility] Address [address] [place] [address] Care Team Providers Care Low Emission Automobile Designer Name Role Phone Wilber Mittal Primary Care Provider [phone] Maxi Tate MD Unavailable [phone] Lela Zapata RN Unavailable Unavailable Mini Frazier MD Unavailable [phone] Nguyen Neal PA-C Unavailable [phone] Maxi Tate MD Unavailable [phone] Mini Frazier MD Unavailable [phone] Mickey Mills MD Primary Care Provider [phone] Encounter Details Date Type Department Care Team (Late st Contact Info) Description 10/28/2014 [facility] 8th Floor, Clinic [address] [place] [id number] [facility] [address] [place] [address] Maxi Tate MD [address] [place] [address] 396 [place], [place] [phone] Social History Tobacco Use Types Packs/Day Years Used Date Smoking Tobacco: Former Cigarettes 0.5 40 0 10/27/1972 - 10/27/2012 Smokeless Tobacco: Never Alcohol Use Standard Drinks/Week Comments Yes 0 (1 standard drink = 0.6 oz pur e alcohol) Very rare Comments No Sex and Gender Information Value Date Recorded Sex Assigned at Female 02/16/2021 5:23 PM CDT Legal Sex Female 5:02 PM COMPOSING MACHINE OPERATOR Gender Identity Female 10/22/2019 10:44 AM COMPOSING MACHINE OPERATOR Sexual Orientation Straight 06/04/2019 11 :41 AM CDT documented as of this encounter Plan of Treatment Upcoming Encounters Date Type Department Care Team (Late st Contact Info) Description 12/26/2024 9:30 AM CDT Office Visit [facility] Pain Management [place] [address] [place] [address] Galina Lopez APRN EMERGENCY MANAGEMENT PROGRAM SPECIALIST 1600 [facility] 101 [place] [address] documented as of this encounter Visit Diagnoses Not on filedocumented in this encounter Care Teams Low Emission Automobile Designer Relationship Specialty Start Date End Date Wilber Mittal PCP - General 09/15/12 07/12/23 Mickey Mills MD [address] [place] [phone] PCP - General 07/13/23 Maxi Tate MD [address] [place] [address] 396 [place], [place] [phone] Otolaryngology 10/31/16 Lela Zapata, SHAREE Specialty Field Training Manager ENT-Otolaryngology 01/18/19 Mini Frazier MD [address] [place] [address] [id number] Gastroenterology 08/05/19 Nguyen Neal, PA-C 909 [place] [address] Assigned Pediatric Specialist Provider 06/08/20 12/08/20 Maxi Tate MD [address] [place] [address] [phone] Assigned Surgical Provider 06/08/20 Mini Frazier MD [address] [place] [address] Assigned Gastroenterology Provider 06/08/20 04/06/21 documented as of this encounter
--- OUTSIDE RECORDS SUMMARY | 2024-11-29 17:09 | XMS_ITS | Encounter Summary ---
Author Organization [place] [facility] [place] Address [address] [place] [address] Care Team Providers Care Career Development Facilitator Name Role Phone Wilber Mittal Primary Care Provider [phone] Maxi Tate MD Unavailable Lela Zapata RN Unavailable Unavailable Mini Frazier MD Unavailable [phone] Nguyen Neal PA-C Unavailable [phone] Maxi Tate MD Unavailable [phone] Mini Frazier MD Unavailable [phone] Mickey Mills MD Primary Care Provider Encounter Details Date Type Department Care Team (Late st Contact Info) Description 06/13/2019 [facility] Medical Advice [facility] Ear Nose and Throat 909 [facility] 4th [place] [address] Nguyen Neal PA-C 909 [place] [address] Social History Tobacco Use Types Packs/Day Years [...] PM CDT Legal Sex Female 5:02 PM MODEL AND PATTERN SUPERVISOR Gender Identity Female 10/22/2019 10:44 AM MODEL AND PATTERN SUPERVISOR Sexual Orientation Straight 06/04/2019 11 :41 AM CDT documented as of this encounter Miscellaneous Notes * Telephone Encounter - Etelvina March MD - 06/13/2019 11:34 PM CDT Patient's called at 06/13/2019 20:19 regarding continued concerns regarding his 's painregimen. She continues to have moderately-severe pain only partially controlled by her current regimen of Tylenol, magic mouthwash, and liquid oxycodone. She is out of magic mouthwash and has begun using Percocet prescribed by a different physician. The pain is so severe she has difficulty maintaining adequate PO intake unless she drinks around the surgical site with a straw. No fevers, chills, oral drainage, bleeding, or respiratory distress. - Magic mouthwash called into patient's pharmacy of choice. - Counseled regarding proper use of Tylenol and 4g daily limit (including from sources such as Percocet). Reiterated maximum dosing of oxycodone. - Will defer ordering of Percocet to Dr. Tate. - Counseled regarding concerning symptoms of infection, bleeding, or dehydration. - Patient's expressed understanding of all recommendations. Etelvina March MD PGY-2 Otolaryngology - Head & Neck Surgery documented in this encounter Plan of Treatment Upcoming Encounters Date Type Department Care Team (Late st Contact Info) Description 12/26/2024 9:30 AM CDT Office Visit [facility] Pain Management [place] [address] [place] [address] [address] [place] [address] Galina Lopez APRN NONPROFIT FINANCIAL CONTROLLER 1600 [facility] 101 [place] [address] documented as of this encounter Visit Diagnoses Not on filedocumented in this encounter Additional Health Concerns Assessment Noted Time PHQ-9 Depression Total Score: 6 10/13/19 19 7:05 AM MODEL AND PATTERN SUPERVISOR documented as of this encounter Care Teams Career Development Facilitator Relationship Specialty Start Date End Date Wilber Mittal PCP - General 09/15/12 07/12/23 Mickey Mills MD [address] [place] [phone] PCP - General 07/13/23 Maxi Tate MD [address] [place] [address] [phone] Otolaryngology 10/31/16 Lela Zapata, RN Specialty Training Development Director ENT-Otolaryngology 01/18/19 Mini Frazier MD [address] [place] [address] [phone] Gastroenterology 08/05/19 Nguyen Neal, PACorrineC [address] [place] [address] [phone] Assigned Pediatric Specialist Provider 06/08/20 12/08/20 Maxi Tate MD [address] [place] [address] 217345 Assigned Surgical Provider 06/08/20 Mini Frazier MD [address] [place] [address] 727605 Assigned Gastroenterology Provider 06/08/20 04/06/21 documented as of this encounter
--- OUTSIDE RECORDS SUMMARY | 2024-11-29 17:09 | XMS_ITS | Encounter Summary ---
Author Organization [facility] Address [address] [place] [address] Care Team Providers Care Casting Machine Adjuster Name Role Phone Wilber Mittal Primary Care Provider Maxi Tate MD Unavailable [phone] Lela Zapata RN Unavailable Unavailable Mini Frazier MD Unavailable [phone] Nguyen Neal PA-C Unavailable [phone] Maxi Tate MD Unavailable [phone] Mini Frazier MD Unavailable [phone] Mickey Mills MD Primary Care Provider Encounter Details Date Type Department Care Team (Late st Contact Info) Description 01/24/2017 [facility] Medical Advice [facility] Ear Nose and Throat 909 [facility] [address] 4th [place] [address] Maxi Tate MD 420 [facility] 396 [place] [address] Social History Tobacco Use Types Packs/Day Years Used Date Smoking Tobacco: Former Cigarettes 0.5 40 0 10/27/1972 - 10/27/2012 Smokeless Tobacco: Never Alcohol Use Standard Drinks/Week Comments Yes 0 (1 standard drink = 0.6 oz pur e alcohol) minimal Comments No Sex and Gender Information Value Date Recorded Sex Assigned at Female 02/16/2021 5:23 PM CDT Legal Sex Female 5:02 PM STORE CLERK Gender Identity Female 10/22/2019 10:44 AM STORE CLERK Sexual Orientation Straight 06/04/2019 11 :41 AM CDT documented as of this encounter Plan of Treatment Upcoming Encounters Date Type Department Care Team (Late st Contact Info) Description 12/26/2024 9:30 AM CDT Office Visit [facility] Pain Management [place] [address] [place] [address] Galina Lopez APRN CERTIFIED PESTICIDE APPLICATOR 1600 [facility] 101 [place] [address] documented as of this encounter Visit Diagnoses Not on filedocumented in this encounter Care Teams Casting Machine Adjuster Relationship Specialty Start Date End Date Wilber Mittal PCP - General 09/15/12 07/12/23 Mickey Mills MD [address] [place] [phone] PCP - General 07/13/23 Maxi Tate MD [address] [place] [address] 396 [place], [place] 365155 Otolaryngology 10/31/16 Lela Zapata, SHAREE Specialty Calender Machine Operator Helper ENT-Otolaryngology 01/18/19 Mini Frazier MD [address] [place] [address] [phone] Gastroenterology 08/05/19 Nguyen Neal, PA-C [address] [place] [address] [phone] Assigned Pediatric Specialist Provider 06/08/20 12/08/20 Maxi Tate MD [address] [place] [address] 396 [place], [place] 016075 Assigned Surgical Provider 06/08/20 Mini Frazier MD [address] [place] [address] Assigned Gastroenterology Provider 06/08/20 04/06/21 documented as of this encounter
--- OUTSIDE RECORDS SUMMARY | 2024-11-29 17:09 | XMS_ITS | Encounter Summary ---
Author Organization [facility] Address [address] [place] [address] Care Team Providers Care Market Master Name Role Phone Wilber Mittal Primary Care Provider [phone] Maxi Tate MD Unavailable [phone] Lela Zapata RN Unavailable Unavailable Mini Frazier MD Unavailable [phone] Nguyen Neal PA-C Unavailable [phone] Maxi Tate MD Unavailable [phone] Mini Frazier MD Unavailable [phone] Mickey Mills MD Primary Care Provider Encounter Details Date Type Department Care Team (Late st Contact Info) Description 06/27/2020 [facility] Medical Advice [address] 5th [place] [address] Chelo Gonzalez, SHAREE Social History Tobacco Use Types Packs/Day Years [...] PM CDT Legal Sex Female 5:02 PM ANTENNA DESIGN ENGINEER Gender Identity Female 10/22/2019 10:44 AM ANTENNA DESIGN ENGINEER Sexual Orientation Straight 06/04/2019 11 :41 AM CDT COVID-19 Exposure Response Date Recorded In the last month, have you been in contact with someone who was confirmed or suspected to have Coronavirus / COVID-19? No / Unsure 06/28/2020 10:48 AM ANTENNA DESIGN ENGINEER documented as of this encounter Plan of Treatment Upcoming Encounters Date Type Department Care Team (Late st Contact Info) Description 12/26/2024 9:30 AM CDT Office Visit [facility] Pain Management [place] [address] [facility] [address] [place] [address] Galina Lopez APRN OPTOMETRY DOCTOR 1600 [facility] 101 [place] [address] documented as of this encounter Visit Diagnoses Not on filedocumented in this encounter Additional Health Concerns Assessment Noted Time PHQ-9 Depression Total Score: 6 08/02/20 19 10:51 AM ANTENNA DESIGN ENGINEER documented as of this encounter Care Teams Market Master Relationship Specialty Start Date End Date Wilber Mittal PCP - General 09/15/12 07/12/23 Mickey Mills MD [address] [place] [phone] PCP - General 07/13/23 Maxi Tate MD 420 [facility] 396 [place] [address] Otolaryngology 10/31/16 Lela Zapata, SHAREE Specialty Local Operator ENT-Otolaryngology 01/18/19 Mini Frazier MD [address] [place] [address] Gastroenterology 08/05/19 Nguyen Neal PA-C [address] [place] [address] Assigned Pediatric Specialist Provider 06/08/20 12/08/20 Maxi Tate MD [address] [place] [address] [phone] Assigned Surgical Provider 06/08/20 Mini Frazier MD [address] [place] [address] [phone] Assigned Gastroenterology Provider 06/08/20 04/06/21 documented as of this encounter
--- OUTSIDE RECORDS SUMMARY | 2024-11-29 17:09 | XMS_ITS | Encounter Summary ---
Author Organization [facility] Address [address] [place] [address] Care Team Providers Care Oral Surgery Assistant Name Role Phone Wilber Mittal Primary Care Provider Maxi Tate MD Unavailable Lela Zapata RN Unavailable Unavailable Mini Frazier MD Unavailable [phone] Nguyen Neal PA-C Unavailable [phone] Maxi Tate MD Unavailable [phone] Mini Frazier MD Unavailable [phone] Mickey Mills MD Primary Care Provider Encounter Details Date Type Department Care Team (Late st Contact Info) Description 06/11/2017 [facility] Medical Advice [facility] Ear Nose and Throat 909 [facility] [address] 4th [place] [address] Maxi Tate MD 420 [facility] 396 [place] [address] Social History Tobacco Use Types Packs/Day Years Used Date Smoking Tobacco: Former Cigarettes 0.5 40 0 10/27/1972 - 10/27/2012 Smokeless Tobacco: Never Alcohol Use Standard Drinks/Week Comments Yes 0 (1 standard drink = 0.6 oz pur e alcohol) minimal Comments No Sex and Gender Information Value Date Recorded Sex Assigned at Female 02/16/2021 5:23 PM CDT Legal Sex Female 5:02 PM COIL CONNECTOR Gender Identity Female 10/22/2019 10:44 AM COIL CONNECTOR Sexual Orientation Straight 06/04/2019 11 :41 AM CDT documented as of this encounter Plan of Treatment Upcoming Encounters Date Type Department Care Team (Late st Contact Info) Description 12/26/2024 9:30 AM CDT Office Visit [facility] Pain Management [place] [address] [place] [address] Galina Lopez APRN BUILDING RENTAL MANAGER 1600 [facility] 101 [place] [address] documented as of this encounter Visit Diagnoses Not on filedocumented in this encounter Care Teams Oral Surgery Assistant Relationship Specialty Start Date End Date Wilber Mittal PCP - General 09/15/12 07/12/23 Mickey Mills MD [address] [place] [phone] PCP - General 07/13/23 Maxi Tate MD [address] [place] [address] 396 [place], [place] 9[address] Otolaryngology 10/31/16 Lela Zapata, SHAREE Specialty Middle School Science Teacher ENT-Otolaryngology 01/18/19 Mini Frazier MD [address] [place] [address] 562185 Gastroenterology 08/05/19 Nguyen Neal, PA-C [address] [place] [address] [phone] Assigned Pediatric Specialist Provider 06/08/20 12/08/20 Maxi Tate MD [address] [place] [address] 396 [place], [place] 443155 Assigned Surgical Provider 06/08/20 Mini Frazier MD [address] [place] [address] Assigned Gastroenterology Provider 06/08/20 04/06/21 documented as of this encounter
--- OUTSIDE RECORDS SUMMARY | 2024-11-29 17:10 | XMS_ITS | Encounter Summary ---
Author Organization [facility] Address [address] [place] [address] Care Team Providers Care Application Support Administrator Name Role Phone Wilber Mittal Primary Care Provider [phone] Maxi Tate MD Unavailable [phone] Lela Zapata RN Unavailable Unavailable Mini Frazier MD Unavailable [phone] Maxi Tate MD Unavailable [phone] Mickey Mills MD Primary Care Provider [phone] Encounter Details Date Type Department Care Team (Late st Contact Info) Description 05/28/2022 [facility] Medical Advice [facility] N[facility] and Th[facility]at Clinic [address] 4th [place] [address] Maxi Tate MD [address] [place] [address] Social History Tobacco Use Types Packs/Day Years Used Date Smoking Tobacco: Former Cigarettes 0.5 40 0 10/27/1972 - 10/27/2012 Smokeless Tobacco: Never Alcohol Use Standard Drinks/Week Comments Yes 0 (1 standard drink = 0.6 oz pur e alcohol) once a week PHQ-2 Answer Date Recorded PHQ-2 Score 0 09/17/2021 Comments No Sex and Gender Information Value Date Recorded Sex Assigned at Female 02/16/2021 5:23 PM CDT Legal Sex Female 5:02 PM AIR CREW SUPERVISOR Gender Identity Female 10/22/2019 10:44 AM AIR CREW SUPERVISOR Sexual Orientation Straight 06/04/2019 11 :41 AM CDT COVID-19 Exposure Response Date Recorded In the last 10 days, have yo u been in contact with someone who was confirmed or suspected to have Coronavirus/COVID-19? No / Unsure 05/31/2022 6:56 PM CDT documented as of this encounter Plan of Treatment Upcoming Encounters Date Type Department Care Team (Late st Contact Info) Description 12/26/2024 9:30 AM CDT Office Visit [facility] Pain Management [place] [address] [facility] [address] [place], [place] 92[address] Galina Lopez APRN ELECTROPLATING SALES REPRESENTATIVE 1600 [facility] 101 [place] [address] documented as of this encounter Visit Diagnoses Not on filedocumented in this encounter Additional Health Concerns Assessment Noted Time PHQ-9 Depression Total Score: 6 08/02/20 19 10:51 AM AIR CREW SUPERVISOR documented as of this encounter Care Teams Application Support Administrator Relationship Specialty Start Date End Date Wilber Mittal PCP - General 09/15/12 07/12/23 Mickey Mills MD [address] [place] [phone] PCP - General 07/13/23 Maxi Tate MD [address] [address] Otolaryngology 10/31/16 Lela Zapata, SHAREE Specialty Drilling Machine Operator ENT-Otolaryngology 01/18/19 Mini Frazier MD [address] [place] [address] [phone] Gastroenterology 08/05/19 Maxi Tate MD [address] [place] [address] [phone] Assigned Surgical Provider 06/08/20 documented as of this encounter
--- OUTSIDE RECORDS SUMMARY | 2024-11-29 17:10 | XMS_ITS | Encounter Summary ---
Author Organization [facility] Address [address] [place] [address] Care Team Providers Care Asphalt Paver Name Role Phone Mickey Mills M.D. [facility] Reason for Visit * Reason Onset Date Comments Med Refill 10/15/2024 Encounter Details Date Type Department Care Team (Late st Contact Info) Description 10/15/2024 Refill Department of Family Medicine, [facility], in [place], [place] 300 [place] [address] Mickey Mills M.B.B.S., MThao 300 [place] [phone] Med Refill Social History Tobacco Use Types Packs/Day Years Used Date Smoking Tobacco: Former Cigarettes 0.5 45.5 0 12/30/1967 - 07/17/2013 Smokeless Tobacco: Never Alcohol Use Standard Drinks/Week Comments Yes 2 (1 standard drink = 0.6 oz pur e alcohol) [facility] Utilities Answer Date Recorded In the past 12 months has e electric, gas, oil, or water company threatened to shut off services in your home? No 01/22/2024 Humiliation, Afraid, Rape, and Kick questionnair e Answer Date Recorded Within the last year, have y ou been afraid of your partner or ex-partner? No 10/28/2022 Within the last year, have y ou been humiliated or emotionally abused in other ways by your partner or ex-partner? No Within the last year, have y ou been kicked, hit, slapped, or otherwise physically hurt by your partner or ex-partner? No 10/28/2022 Within the last year, have y ou been raped or forced to have any kind of sexual activity by your partner or ex-partner? No 10/28/2022 Social Connection and Isolat ion Panel [NHANES] Answer Date Recorded In a typical week, how many times do you talk on the phone with family, friends, or neighbors? Once a week 10/28/2022 How often do you get togethe r with friends or relatives? Once a week 10/28/2022 How often do you attend chur ch or pentecostalism services? More than 4 times per year 10/28/2022 Do you belong to any clubs o r organizations such as faith groups, unions, fraternal or athletic groups, or school groups? Yes 10/28/2022 How often do you attend meet ings of the clubs or organizations you belong to? More than 4 times per year 10/28/2022 Are you , , di vorced, , never , or living with a partner? 10/28/2022 AUDIT-C Answer Date Recorded Q1: How often do you have a drink containing alc ohol? 2-4 times a month 10/28/2022 Q2: How many drinks containi ng alcohol do you have on a typical day when you are drinking? 1 or 2 10/28/2022 Q3: How often do you have si x or more drinks on one occasion? Never 10/28/2022 Overall Financial Resource Strain (CARDIA) Answe r Date Recorded How hard is it for you to pa y for the very basics like food, housing, medical care, and heating? Not very hard 10/28/2022 PHQ-2 Answer Date Recorded PHQ-2 Score 2 08/26/2023 [facility] - Occupational Stress Questionnaire Answer Date Recorded Do you feel stress - tense, restless, nervous, or anxious, or unable to sleep at night because your mind is troubled all the time - these days? Not at all 10/28/2022 Exercise Vital Sign Answer Date Recorde d On average, how many days pe r week do you engage in moderate to strenuous exercise (like a brisk walk)? 0 days 01/22/2024 On average, how many minutes do you engage in exercise at this level? 0 min 01/22/2024 Hunger Vital Sign Answer Date Recorded Within the past 12 months, y ou worried that your food would run out before you got the money to buy more. Never true 01/22/20 24 Within the past 12 months, t he food you bought just didn't last and you didn't have money to get more. Never true 01/22/2024 PRAPARE - Transportation Answer Date Re corded In the past 12 months, has l ack of transportation kept you from medical appointments or from getting medications? No 02/2024 In the past 12 months, has l ack of transportation kept you from meetings, work, or from getting things needed for daily living? No 01/22/2024 Depression Answer Date Recor ded PHQ-9 Total Score (max 27) 6 09/05 Nutrition Answer Date Recorded On average, how many serving s of fruits and vegetables do you eat per day (serving size is equal to 1 cup or approximately the size of a tennis ball)? 3-5 01/22/2024 Dental Answer Date Recorded Dental: Regular Dentist No 11/20/19 Employment Answer Date Recorded Employment status Employed and actively working without restrictions 01/22/2024 Housing Stability Answer Date Recorded What is your living situation today? I have a [facility] place to live 01/22/2024 Education Answer Date Recorded What is the highest level of school you have completed or the highest degree you have received? Some college, no degree 10/28/2022 Comments No Sex and Gender Information Value Date Recorded Sex Assigned at Female 07/14/2018 10:14 AM GREEN BUILDING DESIGN SPECIALIST Legal Sex Female 8:13 PM GREEN BUILDING DESIGN SPECIALIST Gender Identity Female 07/14/2018 10:14 AM GREEN BUILDING DESIGN SPECIALIST Sexual Orientation Straight 07/14/2018 10 :14 AM GREEN BUILDING DESIGN SPECIALIST documented as of this encounter Plan of Treatment Upcoming Encounters Date Type Department Care Team (Late st Contact Info) Description 03/31/2025 4:00 PM CDT Telemedicine Department of Family Medicine, [facility], in [place], [place] 300 [place] [address] Mickey Mills M.B.B.S., M.D. 300 [facility] [place] [address] documented as of this encounter Visit Diagnoses Not on filedocumented in this encounter Additional Health Concerns Assessment Noted Time PHQ-9 Depression Total Score: 6 09/05/19 20 10:01 AM GREEN BUILDING DESIGN SPECIALIST documented as of this encounter Care Teams Asphalt Paver Relationship Specialty Start Date End Date Mickey Mills M.B.B.S., Taj. [address] [place] [address] PCP - General Family Medicine 09/05/19 documented as of this encounter
--- OUTSIDE RECORDS SUMMARY | 2024-11-29 17:10 | XMS_ITS | Encounter Summary ---
Author Organization [facility] Address [address] [place] [address] Care Team Providers Care Supervisor Production Name Role Phone Mickey Mills M.D. Primary Care Nola trevizo Reason for Visit * Reason Comments Dizziness 4 days Hot Flashes Sweating, sensitive to bright light Bleeding/Bruising Right arm, IV * Appointment Request (Routine) - Closed Specialty Diagnoses / Procedures Referred By Philipp t Referred To Contact Family Medicine Referral ID Status Reason Start Date Expiration Date Visits Re quested Visits Authorized [id number] Closed 11/25/2024 02/25/2026 1 1 Encounter Details Date Type Department Care Team (Late st Contact Info) Description 11/25/2024 6:00 PM CDT Office Visit Department of Family Medicine, [facility], in [place], [place] [address] [address] Renu Funk APRN, C.N.P. [address] [place] [address] Dizziness (Primary Dx) Social History Tobacco Use Types Packs/Day Years Used Date Smoking Tobacco: Former Cigarettes 0.5 45.5 0 12/30/1967 - 07/17/2013 Smokeless Tobacco: Never Alcohol Use Standard Drinks/Week Comments Yes 2 (1 standard drink = 0.6 oz pur e alcohol) [facility] Utilities Answer Date Recorded In the past 12 months has th e electric, gas, oil, or water company [...] often do you attend chur ch or orthodoxy services? More than 4 times per year 10/28/2022 Do you belong to any clubs o r organizations such as lutheran groups, unions, fraternal or athletic groups, or [...] PHQ-2 Answer Date Recorded PHQ-2 Score 2 11/07/2024 [facility] Occupat ional Health - Occupational Stress [...] your living situation today? [facility] 01/22/2024 Education Answer Date Recorded What is the highest level of school you have completed or the highest degree you have received? Some college, no degree 10/28/2022 Comments No Sex and Gender Information Value Date Recorded Sex Assigned at Female 07/14/2018 10:14 AM VACUUM FILTER OPERATOR Legal Sex Female 8:13 PM VACUUM FILTER OPERATOR Gender Identity Female 07/14/2018 10:14 AM VACUUM FILTER OPERATOR Sexual Orientation Straight 07/14/2018 10 :14 AM VACUUM FILTER OPERATOR documented as of this encounter Last Filed Vital Signs Vital Sign Reading Time Taken Comments Blood Pressure 123/77 11/25/2024 5:45 PM CDT Pulse 69 11/25/2024 5:45 PM CDT Temperature 35.5 C (95.9 F) 11/25/2024 5:45 PM CDT Respiratory Rate - - Oxygen Saturation - - Inhaled Oxygen Concentration - - Weight 69.8 kg (153 lb 14.1 oz) 11/25/2024 5:45 PM CDT Height - - Body Mass Index 26.14 11/08/2024 8:16 AM CDT documented in this encounter Progress Notes * Renu Funk, ANGELA, C.N.P. - 11/25/2024 6:00 PM CDT Images from the original note were not included. PRIMARY CARE TODAY/SAME DAY CLINIC DATE OF VISIT: 11/25/2024 SUBJECTIVE CHIEF COMPLAINT / REASON FOR VISIT Kelly Langley is a 69 y.o. female who presents for evaluation of Dizziness (4 days), Hot Flashes (Sweating, sensitive to bright light), and Bleeding/Bruising (Right arm, IV). The patient verbally consented to an audio recording of their visit to assist with the completion of documentation. History of Present Illness Kelly Langley is a 69 year old female who presents with dizziness and bruising after recent surgery that was performed on 11/21. She experiences dizziness accompanied by hot flashes and sweating on her head and the back of her neck. These symptoms occur without a fever, although she is taking a lot of Tylenol. The dizziness issevere enough that she needs to lie down, and she has difficulty moving around, particularly at night when trying to go to the bathroom. She has not required assistance yet but feels she probably should have had help a couple of times. No fever is present. She has a significant bruise on her arm that developed after her recent surgery. The bruise is tender, lumpy, and has increased in size over the past 24 hours. She resumed taking Eliquis yesterday, which she had stopped for the surgery. The bruise is colorful and tender, and she is concerned about the possibility of a collapsed vein or other complications related to the IV placement during surgery . She recalls that the IV site was bleeding before it was removed. She has a history of multiple surgeries and is currently taking oxycodone for pain, along with Tylenol, magic mouthwash, and lidocaine viscous. She is aware that oxycodone can cause dizziness and nausea, and she has previously managed nausea by taking half of a gummy, although she has not done so today due to feeling particularly unwell. She reports difficulty eating, having consumed very little since Thursday, including two chicken nuggets, half a cup of baby food, and half a cup of pudding. Sheis able to drink clear liquids but finds thicker liquids like protein drinks too difficult to consume. She drinks a third of a cup of water every three hours to stay hydrated. OBJECTIVE VITAL SIGNS BP 123/77 Pulse 69 Temp (!) 35.5 ??C Wt 69.8 kg BMI 26.14 kg/m?? Physical Exam Vitals and nursing note reviewed. Constitutional Appearance: Normal appearance. Eyes Extraocular Movements: Extraocular movements intact. Pupils: Pupils are equal, round, and reactive to light. Cardiovascular Pulses: Normal pulses. Heart sounds: Normal heart sounds. Pulmonary Effort: Pulmonary effort is normal. Breath sounds: Normal breath sounds. Skin Capillary Refill: Capillary refill takes 2 to 3 seconds. Findings: Ecchymosis present. Neurological Mental Status: She is alert and oriented to person, place, and time. ASSESSMENT / PLAN #1 Dizziness Likely related to medication regimen, including oxycodone and acetaminophen, and possibly residual effects of anesthesia from recent surgery. Inadequate nutritional intake may exacerbate medication effects. Aging may contribute to prolonged anesthesia retention, worsening symptoms. - Order CBC and electrolytes to rule out other causes of dizziness. - Encourage hydration and consider diluted electrolyte replacement drinks like Body Armor, ensuringshe meets dietary restrictions (no citrus, low sodium). PATIENT EDUCATION: Ready to learn, no apparent learning barriers were identified; learning preferences include listening. A comprehensive discussion was held with the patient to review the diagnosis and treatment plan.Explained diagnosis and treatment plan; patient expressed understanding of the content, discussed at length. All questions answered. Renu Funk APRN, C.N.P. documented in this encounter Plan of Treatment Upcoming Encounters Date Type Department Care Team (Late st Contact Info) Description 03/31/2025 4:00 PM CDT Telemedicine Department of Family Medicine, [facility], in [place], [place] [address] [facility] [place] [phone] Mickey Mills M.B.B.S., M.D. [address] [place] [phone] documented as of this encounter Procedures Procedure Name Priority Date/Time Associated Diagnosis Comments CBC WITH DIFFERENTIAL, B Routine 11/25/2024 6:33 PM CDT Dizziness BASIC METABOLIC PANEL, S/P Routine 11/25/2024 6:33 PM CDT Dizziness documented in this encounter Results * Basic Metabolic Panel (11/25/2024 6:33 PM CDT) Potassium, P 4.8 3.6 - 5.2 mmol/L 11/25/2024 7:00 PM CDT OWAT Sodium, P 138 135 - 145 mmol/L 11/25/2024 7:00 PM CDT OWAT Chloride, P 98 98 - 107 mmol/L 11/25/2024 7:00 PM CDT OWAT Bicarbonate, P 27 22 - 29 mmol/L 11/25/2024 7:00 PM CDT OWAT Anion Gap, P 13 7 - 15 11/25/2024 7:00 PM CDT OWAT BUN (Blood Urea Nitrogen), P 12 6 - 21 mg/dL 11/25/2024 7:00 PM CDT OWAT Creatinine 1.00 0.59 - 1.04 mg/dL 11/25/2024 7:00 PM CDT OWAT Estimated GFR (eGFR) 61 >=60 mL/min/BSA 11/25/2024 7:00 PM CDT OWAT Comment: Estimated GFR calculated using the 2020 CKD_EPI creatinine equation. Calcium, Total, P 10.0 8.8 - 10.2 mg/dL 11/25/2024 7:00 PM CDT OWAT Glucose, P 100 70 - 140 mg/dL 11/25/2024 7:00 PM CDT OWAT Blood (Blood, Venous) 11/25/2024 6:33 PM CDT 11/25/2024 6:37 PM CDT us Renu Funk APRN, C.N.P. LAB BLOOD ADD-ON Anayeli l Result [facility] [address] [place] [address], [facility] OWAT [facility] [place] [address] [place] [address] * (ABNORMAL) CBC with Differential, Blood (11/25/2024 6:33 PM CDT) Hemoglobin 15.1(H) 11.6 - 15.0 g/dL 11/25/2024 6:39 PM CDT OWAT Hematocrit 46.0(H) 35.5 - 44.9 % 11/25/2024 6:39 PM CDT OWAT Erythrocytes 5.03 3.92 - 5.13 x10(12)/L 11/25/2024 6:39 PM CDT OWAT MCV 91.5 78.2 - 97.9 fL 11/25/2024 6:39 PM CDT OWAT RBC Distrib Width 13.0 12.2 - 16.1 % 11/25/2024 6:39 PM CDT OWAT Platelet Count 704(H) 157 - 371 x10(9)/L 11/25/2024 6:39 PM CDT OWAT Leukocytes 10.1(H) 3.4 - 9.6 x10(9)/L 11/25/2024 6:39 PM CDT OWAT Neutrophils 6.83(H) 1.56 - 6.45 x10(9)/L 11/25/2024 6:39 PM CDT OWAT Lymphocytes 2.34 0.95 - 3.07 x10(9)/L 11/25/2024 6:39 PM CDT OWAT Monocytes 0.65 0.26 - 0.81 x10(9)/L 11/25/2024 6:39 PM CDT OWAT Eosinophils 0.20 0.03 - 0.48 x10(9)/L 11/25/2024 6:39 PM CDT OWAT Basophils 0.07 0.01 - 0.08 x10(9)/L 11/25/2024 6:39 PM CDT OWAT Blood (Blood, Venous) 11/25/2024 6:33 PM CDT 11/25/2024 6:37 PM CDT us Renu Funk APRN, C.N.P. LAB BLOOD ADD-ON Anayeli l Result Performing Organization Address City/State/[facility] Co de Phone Number [facility] [address], [place] [address], [facility] OWAT [facility] in [place] [address] [place] [address] documented in this encounter Visit Diagnoses Diagnosis Dizziness- Primary documented in this encounter Additional Health Concerns Assessment Noted Time PHQ-9 Depression Total Score: 6 09/05/19 20 10:01 AM VACUUM FILTER OPERATOR documented as of this encounter Care Teams Supervisor Production Relationship Specialty Start Date End Date Mickey Mills M.B.B.S., M.D. [address] [place] [phone] PCP - General Family Medicine 09/05/19 documented as of this encounter
--- OUTSIDE RECORDS SUMMARY | 2024-11-29 17:10 | XMS_ITS | Encounter Summary ---
Author Organization [place] Address [address] [place] [address] Care Team Providers Care Meteorology Professor Name Role Phone Wilber Mittal Primary Care Provider [phone] Maxi Tate MD Unavailable Lela Zapata RN Unavailable Unavailable Mini Frazier MD Unavailable [phone] Maxi Tate MD Unavailable [phone] Mickey Mills MD Primary Care Provider [phone] Encounter Details Date Type Department Care Team (Late st Contact Info) Description 03/04/2022 [facility] Medical Advice [facility] [address] 4th [place] [address] Maxi Tate MD [address] [place] [address] Social History Tobacco Use Types Packs/Day [...] PM CDT Legal Sex Female 5:02 PM WAREHOUSE AND RECEIVING SUPERVISOR Gender Identity Female 10/22/2019 10:44 AM WAREHOUSE AND RECEIVING SUPERVISOR Sexual Orientation Straight 06/04/2019 11 :41 AM CDT COVID-19 Exposure Response Date Recorded In the last 10 days, have yo u been in contact with someone who was confirmed or suspected to have Coronavirus/COVID-19? No / Unsure 03/03/2022 5:33 AM CDT documented as of this encounter Plan of Treatment Upcoming Encounters Date Type Department Care Team (Late st Contact Info) Description 12/26/2024 9:30 AM CDT Office Visit [facility] [place] [address] [facility] [address] [place], [place] [address] Galina Lopez APRN VAPOR COATER [address] [facility] [address] [place] [address] documented as of this encounter Visit Diagnoses Not on filedocumented in this encounter Additional Health Concerns Assessment Noted Time PHQ-9 Depression Total Score: 6 08/02/20 19 10:51 AM WAREHOUSE AND RECEIVING SUPERVISOR documented as of this encounter Care Teams Meteorology Professor Relationship Specialty Start Date End Date Wilber Mittal PCP - General 09/15/12 07/12/23 Mickey Mills MD [address] [place] [phone] PCP - General 07/13/23 Maxi Tate MD [address] [address] Otolaryngology 10/31/16 Lela Zapata, SHAREE Specialty Steel Post Installer Supervisor ENT-Otolaryngology 01/18/19 Mini Frazier MD [address] [place] [phone] Gastroenterology 08/05/19 Maxi Tate MD [address] [place] [id number] Assigned Surgical Provider 06/08/20 documented as of this encounter
--- OUTSIDE RECORDS SUMMARY | 2024-11-29 17:10 | XMS_ITS | Encounter Summary ---
Author Organization [facility] Address [address] [place] [address] Care Team Providers Care Crayon Sorting Machine Feeder Name Role Phone Wilber Mittal Primary Care Provider Maxi Tate MD Unavailable Lela Zapata RN Unavailable Unavailable Mini Frazier MD Unavailable [phone] Maxi Tate MD Unavailable [phone] Mickey Mills MD Primary Care Provider Reason for Visit * Reason Onset Date Comments Refill Request 03/09/2022 lidocaine, visco us, (XYLOCAINE) 2 % solution Encounter Details Date Type Department Care Team (Late st Contact Info) Description 03/09/2022 MyC Refill [facility] [address] [facility] [address] [place] [address] Maxi Tate MD [address] [place] [address] Refill Request (lidocaine, viscous, (XYLOC... Social History Tobacco Use Types Packs/Day Years [...] PM CDT Legal Sex Female 5:02 PM CHALK CUTTER Gender Identity Female 10/22/2019 10:44 AM CHALK CUTTER Sexual Orientation Straight 06/04/2019 11 :41 AM CDT COVID-19 Exposure Response Date Recorded In the last 10 days, have marjorie u been in contact with someone who was confirmed or suspected to have Coronavirus/COVID-19? No / Unsure 03/11/2022 3:04 PM CDT documented as of this encounter Miscellaneous Notes * Telephone Encounter - Elva Basilio RN - 03/10/2022 11:22 AM CDT documented in this encounter Plan of Treatment Upcoming Encounters Date Type Department Care Team (Late st Contact Info) Description 12/26/2024 9:30 AM CDT Office Visit [facility] [place] [address] [place] [address] [address] [place] [address] Galina Lopez APRN SECURITY AND COMPLIANCE ANALYST [address] [facility] [address] [place] [address] documented as of this encounter Visit Diagnoses Diagnosis Lesion of tongue Other specified conditions of the tongue documented in this encounter Additional Health Concerns Assessment Noted Time PHQ-9 Depression Total Score: 6 08/02/20 19 10:51 AM CHALK CUTTER documented as of this encounter Care Teams Crayon Sorting Machine Feeder Relationship Specialty Start Date End Date Wilber Mittal PCP - General 09/15/12 07/12/23 Mickey Mills MD [address] [place] [phone] PCP - General 07/13/23 Maxi Tate MD [address] [place] [address] Otolaryngology 10/31/16 Lela Zapata, RN Specialty Aboriginal Education Worker Coordinator ENT-Otolaryngology 01/18/19 Mini Frazier MD [address] [place] [address] Gastroenterology 08/05/19 Maxi Tate MD [address] [place] [address] Assigned Surgical Provider 06/08/20 documented as of this encounter
--- OUTSIDE RECORDS SUMMARY | 2024-11-29 17:10 | XMS_ITS | Encounter Summary ---
Author Organization [facility] Address [address] [place] [address] Care Team Providers Care Contract Clerk Automobile Name Role Phone Wilber Mittal Primary Care Provider [phone] Maxi Tate MD Unavailable [phone] Lela Zapata RN Unavailable Unavailable Mini Frazier MD Unavailable [phone] Maxi Tate MD Unavailable [phone] Mickey Mills MD Primary Care Provider [phone] Encounter Details Date Type Department Care Team (Late st Contact Info) Description 11/10/2022 [facility] Medical Advice [facility] [address]th [place] [address] Sharmin Hernandes Social History Tobacco Use Types Packs/Day Years Used Date Smoking Tobacco: Former Cigarettes 0.5 40 0 10/27/1972 - 10/27/2012 Smokeless Tobacco: Never Alcohol Use Standard Drinks/Week Comments Yes 0 (1 standard drink = 0.6 oz pur e alcohol) once a week PHQ-2 Answer Date Recorded PHQ-2 Score 0 09/02/2022 Comments No Sex and Gender Information Value Date Recorded Sex Assigned at Female 02/16/2021 5:23 PM CDT Legal Sex Female 5:02 PM BUN MACHINE OPERATOR Gender Identity Female 10/22/2019 10:44 AM BUN MACHINE OPERATOR Sexual Orientation Straight 06/04/2019 11 :41 AM CDT documented as of this encounter Plan of Treatment Upcoming Encounters Date Type Department Care Team (Late st Contact Info) Description 12/26/2024 9:30 AM CDT Office Visit [facility] Pain Management [place] [address] [facility] [address] [place] [address] Galina Lopez APRN NEGATIVE RESTORER [address] [facility] [address] [place] [address] documented as of this encounter Visit Diagnoses Not on filedocumented in this encounter Additional Health Concerns Assessment Noted Time PHQ-9 Depression Total Score: 6 08/02/20 19 10:51 AM BUN MACHINE OPERATOR documented as of this encounter Care Teams Contract Clerk Automobile Relationship Specialty Start Date End Date Wilber Mittal PCP - General 09/15/12 07/12/23 Mickey Mills MD [address] [place] [phone] PCP - General 07/13/23 Maxi Tate MD [address] [place] [address] Otolaryngology 10/31/16 Lela Zapata, SHAREE Specialty Air Quality Consultant ENT-Otolaryngology 01/18/19 Mini Frazier MD [address] [place] [address] Gastroenterology 08/05/19 Maxi Tate MD [address] [address] Assigned Surgical Provider 06/08/20 documented as of this encounter
--- OUTSIDE RECORDS SUMMARY | 2024-11-29 17:10 | XMS_ITS | Encounter Summary ---
Author Organization [facility] Address [address] [place] [address]. [place] [address] Care Team Providers Care Inspector Fuel Hose Name Role Phone Maxi Tate MD Unavailable Lela Zapata RN Unavailable Unavailable Mini Frazier MD Unavailable [phone] Maxi Tate MD Unavailable [phone] Mickey Mills MD Primary Care Provider Encounter Details Date Type Department Care Team (Late st Contact Info) Description 07/26/2024 [facility] Medical Advice [facility] OR [address]th [place] [address] Lilia Chi, SHAREE Social History Tobacco Use Types Packs/Day Years Used Date Smoking Tobacco: Former Cigarettes 0.5 40 0 10/27/1972 - 10/27/2012 Smokeless Tobacco: Never Alcohol Use Standard Drinks/Week Comments Yes 0 (1 standard drink = 0.6 oz pur e alcohol) once a week PHQ-2 Answer Date Recorded PHQ-2 Score 6 09/22/2023 Adolescent Education Answer Date Record ed Getting School Help Needed Not on file 05/08 Comments No Sex and Gender Information Value Date Recorded Sex Assigned at Female 02/16/2021 5:23 PM CDT Legal Sex Female 5:02 PM GENERAL PRODUCTION WORKER Gender Identity Female 10/22/2019 10:44 AM GENERAL PRODUCTION WORKER Sexual Orientation Straight 06/04/2019 11 :41 AM CDT documented as of this encounter Plan of Treatment Upcoming Encounters Date Type Department Care Team (Late st Contact Info) Description 12/26/2024 9:30 AM CDT Office Visit [facility] Pain Management [place] [address] [place] [place] [address] Galina Lopez APRN DATABASE MANAGEMENT SYSTEM SPECIALIST [address] [facility] [address] [place] [address] documented as of this encounter Visit Diagnoses Not on filedocumented in this encounter Additional Health Concerns Assessment Noted Time PHQ-9 Depression Total Score: 15 024 2:52 PM GENERAL PRODUCTION WORKER documented as of this encounter Care Teams Inspector Fuel Hose Relationship Specialty Start Date End Date Mickey Mills MD [address] [place] [phone] PCP - General 07/13/23 Maxi Tate MD [address] [place] [address] Otolaryngology 10/31/16 Lela Zapata, RN Specialty Electrical Controls Assembler ENT-Otolaryngology 01/18/19 Mini Frazier MD [address] [place] [address] Gastroenterology 08/05/19 Maxi Tate MD [address] [address] Assigned Surgical Provider 06/08/20 documented as of this encounter
--- OUTSIDE RECORDS SUMMARY | 2024-11-29 17:10 | XMS_ITS | Clinical Summary ---
Author Organization [facility] Address [address] [place] [address] Care Team Providers Care Nurse Unit Manager Name Role Phone Mickey Mills M.D. Primary Care Nola trevizo Source Comments Patient records contain information from all sites at [facility]. For routine questions regarding patient records, call [phone] during business hours, M-F 8:00 AM - 5:00 PM Central Time. Record requests for emergency care only can be directed to [phone] at any time.[facility] Allergies Active Allergy Reactions Criticality Noted Date Comments Warfarin Angioedema (Reselect Reaction) Medium 02/09 Mold Other (see comments) 05/17/2020 Pollen Extracts Other (see comments) 06/06/2019 Independence Pollen Cough Low 08/31/2017 Medications lidocaine viscous (XYLOCAINE) 2 % mucosal solution 15 mL. 03/11/20 22 Active UNABLE TO FIND Take by mouth at bedtime as needed. Med Name: CBD/THC gummy Active acetaminophen (TYLENOL) 325 mg tablet Take 325-650 mg by mouth. Active ivermectin (STROMECTOL) 3 mg tablet Once a week x 3 doses 10/20/19 24 Active lidocaine viscous (lidocaine) 2 % mucosal solution 5 mL. 09/14/19 24 Active gabapentin (Neurontin) 100 mg capsule Take 100 mg by mouth 3 (three) times a day. Active montelukast (Singulair) 10 mg tablet take one tablet by mouth at bedtime 90 tablet 3 06/13/20 24 Active nystatin (Mycostatin) 100,000 unit/mL suspension TAKE 1 TEASPOONFUL BY MOUTH FOUR TIMES A DAY 07/05/20 24 Active lisinopriL 20 mg tabletIndications: Hypertension Essential Primary Take 1 tablet (20 mg total) by mouth daily. 90 tablet 3 07/13/20 24 025 Active apixaban (Eliquis) 5 mg tabletIndications: Anticoagulant Therapy,Infarction Spleen Take 1 tablet (5 mg total) by mouth 2 (two) times a day. 07/13/20 24 Active levothyroxine 100 mcg tablet Take 1 tablet (100 mcg total) by mouth daily. 30 tablet 3 09/14/19 25 Active omeprazole (PriLOSEC) [address] capsule TAKE ONE CAPSULE BY MOUTH EVERY DAY 90 capsule 3 10/04/19 25 Active albuterol (ProAir HFA) 90 mcg/actuation inhaler Inhale 2 puffs every 4 (four) hours as needed for wheezing or shortness of breath. 54 g 3 10/18/19 25 Active al mag oxide-diphenhydram ine-nystatin (Magic Mouthwash) suspension Take 5 mL by mouth every 4 hours if needed for pain. 08/11/20 24 Active oxyCODONE (Roxicodone) 5 mg immediate release tablet Take 5 mg by mouth. 08/12/20 24 Active chlorhexidine (Peridex) 0.12 % mouthwash 15 mL. 11/22/19 25 Active cholecalciferol, vitamin D3, 25 mcg (1,000 Unit) tablet Take 25 mcg by mouth. 09/20/19 25 Active ondansetron ODT (Zofran-ODT) 4 mg disintegrating tablet Dissolve 1 tablet in the mouth every 8 (eight) hours as needed. 08/01/20 24 Active acetaminophen (TylenoL) 325 mg tablet Take 2 tablets by mouth every 4 (four) hours as needed. 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 Hypothyroidism 09/01/2014 Temporomandibular Joint Syndrome 09/01/2014 Polyp Colon Personal History, Unspecified Type 0 12/06/2012 Resolved Problems Problem Noted Date Diagnosed Date Resolved Date Monitoring For Therapeutic Drug Therapy 02/06/2023 02/10/2023 Encounters Date Type Department Care Team Description 11/29/2024 Nurse Triage Department of [facility], [facility], [address] [address] Raj Roberts R.N. Mass 11/25/2024 6:00 PM CDT Office Visit Department of Family Medicine, [facility], [place], [place] [address] [address] Renu Funk APRN, C.N.P. Dizziness (Primary Dx) 11/25/2024 Results Follow-Up Department of Family Medicine, [facility], [place], [place] [address] [address] Renu Funk APRN, C.N.P. Basic Metabolic Panel, CBC with Differential, Blood 11/25/2024 Nurse Triage Department of Family Medicine, [facility], [address] [place] [address] Nguyen Kim R.N. Dizziness 11/08/2024 8:30 AM CDT Office Visit Department of [facility], [facility], [address] [place] [address] Jonelle Mckeon APRN, C.N.P., D.N.P. Preoperative Exam (Primary Dx); Malignant Neoplasm Of Tongue (HCC); History Of Falling 10/15/2024 Refill Department of Family Medicine, [facility], in [address] [address] Mickey Mills M.B.B.S., M.D. Med Refill 10/11/2024 Results Follow-Up Department of Family Medicine, [facility], in [address] [place] [address] Kala Mcmillan M.D. S-TSH (Thyroid-Stimulating Hormone - Sensitive) 10/10/2024 4:39 PM DIRECTOR OF RETAIL ANALYTICS - 10/10/2024 11:59 PM DIRECTOR OF RETAIL ANALYTICS Hospital Encounter Department of Laboratory Medicine in [address] [address] Kala Mcmillan M.D. Hypothyroidism Discharge Disposition: Home or Self Care 10/02/2024 Refill Department of Family [facility], [facility], in [address] [address] Sasha Walters, ANGELA, C.N.P. Med Refill 09/14/2024 Results Follow-Up Department of [facility], [facility], in [address] [place] [address] Kala Mcmillan M.D. Thyroid Function Zapata, T4 (Thyroxine), Free, Serum, Thyroperoxidase (TPO) Antibodies 09/12/2024 4:40 PM DIRECTOR OF RETAIL ANALYTICS - 09/12/2024 11:59 PM DIRECTOR OF RETAIL ANALYTICS Hospital Encounter Department of Laboratory Medicine in [address] [address] Mickey Mills M.B.B.S., M.D. Hypothyroidism Discharge Disposition: Home or Self Care 09/11/2024 Refill Department of [facility], in [address] [address] Mickey Mills M.B.B.S., M.D. Med Refill from Last 3 Months Immunizations Immunization Administration Dates Next Due Influenza high dose QV(65 years or older) (PF) 1 Influenza, Seasonal, Injectable 06/06/2014 Influenza, Unspecified 06/04/2016 PPSV23 06/12/2020 RZV (SHINGRIX) 09/17/2024 SARS-COV-2 (COVID-19) - PFIZ ER (Discontinued)(12 years or older) 10/31/2020,10/10/2020 Tdap 06/06/2014 influenza vaccine quad (FLUZ ONE/FLUARIX) (6 months and older)(PF) 07/11/2017 Family History Medical History Relation Name Comments No Known Problems Daughter 1 Mai Hightower Autoimmune disorder Daughter 2 Brianna Scar unknown as of right now (2023) Food Allergies Daughter 2 Brianna [place] Gastrointestinal and digestive disorder Daughter 2 Brianna [place] Alcohol abuse Father harry bernard Hypertension Father harry bernard Lung cancer Father harry bernard Melanoma Father harry bernard Hypertension Father's Brother 1 Cm Bernard Stroke Father's Brother 1 Cm Bernard Heart attack Father's Brother 2 Maix Bernard Hypertension Father's Brother 2 Maxi Bernard No Known Problems Father's Sister 1 Shahla Baez No Known Problems Father's Sister 2 Keri Degurse Alcohol abuse Father's Sister 3 Gennevieve Joana Alcoholic Father's Sister 3 Gennevieve Joana Pneumonia Maternal Grandfather Abhijeet Maldonadodat Asthma Maternal Grandmother eric gomez Angina Mother cruz joana Arthritis Mother cruz joana Coronary artery disease Mother cruz joana Dementia Mother cruz joana Diabetes Mother cruz joana Hypothyroidism Mother cruz joana Osteoporosis Mother cruz joana Thyroid disease Mother cruz joana Dementia Mother's Brother 1 anveen scherff Other cancer Mother's Brother 1 naveen scherff Other cancer Mother's Brother 2 bill scherff Other cancer Mother's Brother 3 bridget scherff Other cancer Mother's Brother 4 mila scherff Breast cancer Mother's Sister 1 marjack angelina Other cancer Mother's Sister 2 rilla arellano Rheum arthritis Mother's Sister 2 rilla arellano Colon cancer Mother's Sister 3 mandeep castle Other cancer Mother's Sister 4 daya partridge Dementia Mother's Sister 5 Mervil Saran Hypertension Paternal Grandfather Cm Bernard Stroke / transient ischemic attack referral Paternal Grandfather Cm Bernard Cause of No Known Problems Paternal Grandmother Keila Bernard Other cancer Sister 1 evy bernard half sister; maybe bladder cancer Arthritis Sister 2 steven bernard low back COPD Sister 2 steven bernard Hypertension Sister 2 steven bernard Smoker Sister 2 steven bernard Transient ischemic attack Sister 2 steven bernard Premature Son Nacho Abbott Cause of De ath - lived until 2 days old Relation Name Status Comments Daughter 1 Mai Hightower Alive Daughter 2 Brianna Abbott Alive Father harry bernard Father's Brother 1 Cm Bernard Father's Brother 2 Maxi Joana Father's Sister 1 Shahla Sasha Father's Sister 2 Keri Clarisse Father's Sister 3 Blade Bernard Maternal Grandfather Abhijeet Kimballgetachew Maternal Grandmother eric gomez Mother cruz bernard Mother's Brother 1 naveen scherff Mother's Brother 2 bill scherff Mother's Brother 3 bridget scherff Mother's Brother 4 mila scherff Mother's Sister 1 tao angelina Mother's Sister 2 rilla arellano Mother's Sister 3 mandeep castle Mother's Sister 4 daya partridge Mother's Sister 5 Mervil Paternal Grandfather Cm Bernard Paternal Grandmother Keila Bernard Sister 1 evy bernard Sister 2 steven bernard Alive Son Nacho Abbott Social History Tobacco Use Types Packs/Day Years Used Date Smoking Tobacco: Former Cigarettes 0.5 45.5 0 12/30/1967 - 07/17/2013 Smokeless Tobacco: Never Tobacco Cessation:Counseling Given: Not Answered Alcohol Use Standard Drinks/Week Comments Yes 2 (1 standard drink = 0.6 oz pur e alcohol) [facility] Utilities Answer Date Recorded In the past [...] often do you attend chur ch or judaism services? More than 4 times per year 10/28/2022 Do you belong to any clubs o r organizations such as yarsani groups, unions, fraternal or athletic groups, or [...] Answer Date Recorded PHQ-2 Score 2 11/07/2024 [facility] - Occupational Stress [...] your living situation today? [facility] a [facility] place to live 01/22/2024 Education Answer Date Recorded What is the highest level of school you have completed or the highest degree you have received? Some college, no degree 10/28/2022 Comments No Sex and Gender Information Value Date Recorded Sex Assigned at Female 07/14/2018 10:14 AM DIRECTOR OF RETAIL ANALYTICS Legal Sex Female 8:13 PM DIRECTOR OF RETAIL ANALYTICS Gender Identity Female 07/14/2018 10:14 AM DIRECTOR OF RETAIL ANALYTICS Sexual Orientation Straight 07/14/2018 10 :14 AM DIRECTOR OF RETAIL ANALYTICS Last Filed Vital Signs Vital Sign Reading Time Taken Comments Blood Pressure 123/77 11/25/2024 5:45 PM CDT Pulse 69 11/25/2024 5:45 PM CDT Temperature 35.5 C (95.9 F) 11/25/2024 5:45 PM CDT Respiratory Rate 16 11/08/2024 8:16 AM CDT Oxygen Saturation 96% 11/08/2024 8:1 6 AM CDT Inhaled Oxygen Concentration - - Weight 69.8 kg (153 lb 14.1 oz) 025 5:45 PM CDT Height 163.4 cm (5' 4.33) 11/08/2024 8 :16 AM CDT with shoes Body Mass Index 26.14 11/08/2024 8:16 AM CDT Plan of Treatment Upcoming Encounters Date Type Department Care Team (Late st Contact Info) Description 03/31/2025 4:00 PM CDT Telemedicine Department of Family Medicine, [facility], in [place], [place] [address] [place] [address] Mickey Mills M.B.B.S., MThao [address] [place] [address] Health Maintenance Due Date Last Done Comments CT Colonography 1955 Cologuard 1955 Hepatitis C Screening 1955 HIB Vaccines (1 of 1 - Risk 1-dose series) [birth year]/04/1956 Meningococcal Vaccine (1 - Risk 2-dose series) 1957 MenB Vaccine (1 of 5 - Increased Risk) 1965 Lung Cancer Screening 08/04/2019 08/04/2018 , 08/04/2018, 08/04/2018, Additional history exists Pneumococcal vaccine (50+ years) (2 of 2 - PCV) 06/12/2021 06/12/2020 COVID-19 Vaccine ( - season) 2024 01/01/2022, 05/18/2021, 10/31/2020, Additional history exists Influenza Vaccine (#1) 2024 , 07/11/2017, 06/04/2016, Additional history exists DTaP,Tdap,and Td Vaccines (2 - Td or Tdap) 06/06/2024 06/06/2014 Colonoscopy 10/26/2024 10/27/2019 (Perf ormed elsewhere), 01/29/2014 Colorectal Cancer Surveillance 10/26/2024 Zoster Vaccines (2 of 2) 11/12/2024 09/17/2024 Mammogram 01/13/2025 01/14/2024, 12/17, 10/10/2022, Additional history exists Visit: Medicare Annual Wellness 03/29/2025 03/28/2024 Visit: Chronic Disease, age 18+ 07/13/2025 07/13/2024 Thyroid Stimulating Hormone (TSH) test for thyroid function 10/10/2025 10/10/2024, 09/12/2024, 07/13/2024, Additional history exists Creatinine Level (Kidney Function Test) 11/25/2025 11/25/2024, 08/08/2024, 01/05/2024, Additional history exists Office Visit for Blood Pressure Check / Re-check 11/25/2025 11/25/2024 Potassium Level 11/25/2025 11/25/2024, 07/18, 01/05/2024, Additional history exists Sodium Level 11/25/2025 11/25/2024, 07/18, 01/05/2024, Additional history exists Fasting Glucose for Diabetes Screening 11/26/2027 11/25/2024, 08/08/2024, 01/05/2024, Additional history exists Cervical/Vaginal Cancer Screening Discontinued 06/04/2016 Bone Density Scan (Osteoporosis Screen) Discontinued 10/02/2021 Depression Screening (Annual PHQ-2) Completed 11/08/2024 Fall Risk Screen (Annual) Completed 11/08/2024 IPV Vaccines Aged Out No longer eligi ble based on patient's age to complete this topic Procedures Procedure Name Priority Date/Time Associated Diagnosis Comments CBC WITH DIFFERENTIAL, B Routine 11/25/2024 6:33 PM CDT Dizziness BASIC METABOLIC PANEL, S/P Routine 11/25/2024 6:33 PM CDT Dizziness THYROID-STIMULATING HORMONE-SENSITIVE (S-TSH) Routine 10/10/2024 4:47 PM DIRECTOR OF RETAIL ANALYTICS Hypothyroidism THYROPEROXIDASE (TPO) ABS, S Routine 09/12/2024 4:47 PM DIRECTOR OF RETAIL ANALYTICS IA T4 FREE Routine 09/12/2024 4:47 PM DIRECTOR OF RETAIL ANALYTICS THYROID FUNCTION CASCADE, S Routine 09/12/2024 4:47 PM DIRECTOR OF RETAIL ANALYTICS Hypothyroidism BI BREAST SCREENING BILATERAL WITH TOMOSYNTHESIS RAD - Routine (most inpatients and all outpatients) 01/14/2024 4:06 PM CDT Screening Mammogram Breast Cancer CT CHEST WITH IV CONTRAST RAD - Routine (most inpatients and all outpatients) 08/04/2018 10:15 AM DIRECTOR OF RETAIL ANALYTICS Pneumonia PATHOLOGY BEE TENDER CYTOLOGY Routine 6 12:00 AM CDT from Last 3 Months or Most Recently Relevant to Health Maintenance Results * (ABNORMAL) CBC with Differential, Blood (11/25/2024 [...] C.N.P. LAB BLOOD ADD-ON Anayeli l Result [facility] [address] [address], [facility] [facility] [place] [address] [place] [address] * Basic Metabolic Panel (11/25/2024 6:33 PM [...] 11/25/2024 6:37 PM CDT us Renu Funk APRN C.N.P. LAB BLOOD ADD-ON Anayeli l Result Performing Organization Address [facility] Co de Phone Number [facility] [address] [address], [facility] [place] [facility] [place] [address] [place] [id number] * S-TSH (Thyroid-Stimulating Hormone - Sensitive) (10/10/2024 4:47 PM DIRECTOR OF RETAIL ANALYTICS) TSH, Sensitive 2.5 0.3 - 4.2 mIU/L 10/10/2024 6:04 PM DIRECTOR OF RETAIL ANALYTICS [place] Blood (Blood, Venous) 10/10/2024 4:47 PM DIRECTOR OF RETAIL ANALYTICS 10/10/2024 5:39 PM DIRECTOR OF RETAIL ANALYTICS us Kala Mcmillan M.D. LAB BLOOD ADD-ON Final Resul t Performing Organization Address [facility]/ZIP Co de Phone Number [facility] [address] [place] [address], [facility] [facility] [place] [address] [address] * T4 (Thyroxine), Free, Serum (09/12/2024 4:47 PM DIRECTOR OF RETAIL ANALYTICS) T4 (Thyroxine), Free, S 0.9 0.9 - 1.7 ng/dL 09/13/2024 10:36 AM DIRECTOR OF RETAIL ANALYTICS [place] Blood 09/12/2024 4:47 PM DIRECTOR OF RETAIL ANALYTICS 09/12/2024 6:16 PM DIRECTOR OF RETAIL ANALYTICS Mickey Pastor M.D. LAB BLOOD ADD-O N Final Result [facility] [address] [place] [address], [place] [facility] [place] [address] [place] [address] * (ABNORMAL) Thyroid Function Zapata (09/12/2024 4:47 PM DIRECTOR OF RETAIL ANALYTICS) TSH, Sensitive 14.3(H) 0.3 - 4.2 mIU/L 09/12/2024 6:56 PM DIRECTOR OF RETAIL ANALYTICS [place] Blood (Blood, Venous) 09/12/2024 4:47 PM DIRECTOR OF RETAIL ANALYTICS 09/12/2024 6:16 PM DIRECTOR OF RETAIL ANALYTICS Mickey Pastor M.D. LAB BLOOD ADD-O N Final Result Performing Organization Address [facility]/ZIP Co de Phone Number [facility] [address] [place] [address], [place] [facility] [place] [address] [place] [address] * Thyroperoxidase (TPO) Antibodies (09/12/2024 4:47 PM DIRECTOR OF RETAIL ANALYTICS) Thyroperoxidase Ab, S 11.1 <34.0 IU/mL 09/13/2024 2:20 PM DIRECTOR OF RETAIL ANALYTICS [facility] Blood 09/12/2024 4:47 PM DIRECTOR OF RETAIL ANALYTICS 09/12/2024 6:16 PM DIRECTOR OF RETAIL ANALYTICS Mickey Pastor M.D. LAB BLOOD ADD-O N Final Result [facility] [address] [place] [address], [facility] [place] [facility] [place] [address] [place] [id number] * BI Breast Screening Bilateral with Tomosynthesis (01/14/2024 4:06 PM CDT) Anatomical Region Laterality Modality Breast, Breast Imaging RST L OS, Breast Imaging ARZ LOS, Breast Imaging FLA LOS Bilateral Mammography Impressions 01/14/2024 5:00 PM CDT Negative. RECOMMENDATION: Annual Screening Mammogram ASSESSMENT: BI-RADS: 1: Negative. Narrative 01/14/2024 5:00 PM CDT EXAM: BI BREAST SCREENING BILATERAL WITH TOMOSYNTHESIS Current study was evaluated with a Computer Aided Detection (CAD) system. INDICATION: Screening mammogram. COMPARISON: Prior exam(s) were available and reviewed for comparison. DENSITY: c. The breast(s) are heterogeneously dense, which may obscure small masses. FINDINGS: No mammographic findings of malignancy. Procedure Note aMry Anne D.O. - 01/14/2024 EXAM: BI BREAST SCREENING BILATERAL WITH TOMOSYNTHESIS Current study was evaluated with a Computer Aided Detection (CAD) system. INDICATION: Screening mammogram. COMPARISON: Prior exam(s) were available and reviewed for comparison. DENSITY: c. The breast(s) are heterogeneously dense, which may obscuresmall masses. FINDINGS: No mammographic findings of malignancy. IMPRESSION: Negative. RECOMMENDATION: Annual Screening Mammogram ASSESSMENT: BI-RADS: 1: Negative. Mickey Pastor M.D. IMG BI PROCEDUR ES Final Result * CT Chest with IV Contrast (08/04/2018 10:15 AM DIRECTOR OF RETAIL ANALYTICS) Anatomical Region Laterality Modality Chest, Thoracic RST LOS, Tho racic ARZ LOS, Thoracic ARZ LOS, Thoracic FLA LOS N/A Computed Tomography 08/04/2018 10:3 1 AM DIRECTOR OF RETAIL ANALYTICS Impressions 08/04/2018 10:46 AM DIRECTOR OF RETAIL ANALYTICS IMPRESSION: 1. Multifocal pulmonary groundglass opacities are of indeterminate etiology. 2. Few noncalcified indeterminate pulmonary nodules, largest 6 mm left lower lobe. 3. 9 mm splenic artery aneurysm. Narrative 08/04/2018 10:46 AM DIRECTOR OF RETAIL ANALYTICS EXAM: CT CHEST WITH IV CONTRAST 3D/MIPS: 3D Post-Processing performed on a dependent workstation. COMPARISON: Chest x-ray 07/14/18 FINDINGS: There are unusual multiple groundglass opacities scattered throughout both lungs. The largest is in the right upper lobe measuring 6 cm (series 3 image 56). These are indeterminate in etiology. Differential is infectious pneumonia, idiopathic nonspecific interstitial pneumonia, hypersensitivity pneumonitis, or multifocal bronchoalveolar carcinoma. Within the left lower lobe, there is 6 mm noncalcified indeterminate 3341 over nodule (series 3 image 185). Within the right middle lobe, there is 6 mm noncalcified indeterminate solid nodule (series 3 image 164). Follow-up of these pulmonary nodules is suggested, though follow-up of the groundglass opacities should take precedence over these pulmonary nodules. Attention to these nodules is suggested when follow-up of the ground glass nodules is performed. Calcified granuloma right lung base. Subsegmental atelectasis right lung base. Mediastinal and bilateral hilar lymph nodes are nonspecific, though all measure less than 1 cm in the short axis. Imaged upper abdomen shows 9 x 9 mm splenic artery aneurysm (series 2 image 137). Small hiatal hernia. Otherwise negative. Procedure Note Andrea Dominique M.D. - 08/04/2018 EXAM: CT CHEST WITH IV CONTRAST 3D/MIPS: 3D Post-Processing performed on a dependent workstation. COMPARISON: Chest x-ray 07/14/18 FINDINGS: There are unusual multiple groundglass opacities scatteredthroughout both lungs. The largest is in the right upper lobe measuring 6 cm (series3 image 56). These are indeterminate in etiology. Differential isinfectious pneumonia, idiopathic nonspecific interstitial pneumonia,hypersensitivity pneumonitis, or multifocal bronchoalveolar carcinoma. Within the left lower lobe, there is 6 mm noncalcified indeterminate 3341over nodule (series 3 image 185). Within the right middle lobe, there is 6 mm noncalcified indeterminate solid nodule (series 3 image 164). Follow-up ofthese pulmonary nodules is suggested, though follow-up of the groundglassopacities should take precedence over these pulmonary nodules. Attention to thesenodules is suggested when follow-up of the ground glass nodules is performed. Calcified granuloma right lung base. Subsegmental atelectasis right lungbase. Mediastinal and bilateral hilar lymph nodes are nonspecific, though allmeasure less than 1 cm in the short axis. Imaged upper abdomen shows 9 x 9 mm splenic artery aneurysm (series 2image 137). Small hiatal hernia. Otherwise negative. IMPRESSION: 1. Multifocal pulmonary groundglass opacities are of indeterminateetiology. 2. Few noncalcified indeterminate pulmonary nodules, largest 6 mm leftlower lobe. 3. 9 mm splenic artery aneurysm. us Mickey Pastor M.D. IMG CT PROCEDUR ES Final Result * Pathology BEE TENDER Cytology (06/04/2016 12:00 AM CDT) 06/04/2016 Narrative [facility] - 06/16/2016 8:25 AM CDT [facility] in [address] [place] [phone] Patient Name: YASIR LANGLEY Collected: 06/04/2016 Address: [facility]/State/Zip: [address] [place] [phone] Received: Reported: 06/06/2016 06/16/2016 Soc. Sec. #: /Age/Sex 1955 (Age: 61) F Physician(s): JANA BLAIR Copy To: [facility] [id number] [address] [place] [address] CYTOPATHOLOGY BEE TENDER REPORT FINAL CYTOLOGIC DIAGNOSIS Pap Smear - ThinPrep: NEGATIVE FOR INTRAEPITHELIAL LESION OR MALIGNANCY PRESENCE OR ABSENCE OF ENDOCERVICAL COMPONENT CANNOT BE DETERMINED DUE TO ATROPHY. SATISFACTORY SPECIMEN FOR EVALUATION. Electronically Signed Out By amb/06/16/[address](ASCP) The Pap test is a screening procedure and, as such, is subject to both false positive and false negative results as evidenced by published data. It is not a diagnostic test and results should be interpreted in the context of the patient's history and other clinical findings. Obtaining periodic Pap tests may help to minimize the consequences of any false negatives that may occur. SPECIMEN(S) RECEIVED: Pap Smear - ThinPrep CLINICAL HISTORY: Date of Last Menstrual Period: AGE 47 Menstrual History: Amenorrhea Other Clinical Conditions: HPV TYPING REQUESTED: IF ASCUS Taj Tovar P.A.-C. LAB PAP COPATH ORDERAB LES Final Result [facility] from Last 3 Months or Most Recently Relevant to Health Maintenance Insurance [facility] MEDICARE Care Teams Nurse Unit Manager Relationship Specialty Start Date End Date Mickey Mills M.B.B.S., M.D. [address] [place] [phone] PCP - General Family Medicine 09/05/19
--- OUTSIDE RECORDS SUMMARY | 2024-11-29 17:10 | XMS_ITS | Encounter Summary ---
Author Organization [facility] Address [address] [place] [address] Care Team Providers Care Shrimper Name Role Phone Mickey Mills M.D. Primary Care Nola trevizo Encounter Details Date Type Department Care Team (Late st Contact Info) Description 11/25/2024 Results Follow-Up Department of Family Medicine, [facility], in [place], [place] [address] [address] Renu Funk, ANGELA, C.N.P. [address] [address] Basic Metabolic Panel, CBC with Differential, Blood Social History Tobacco Use Types Packs/Day Years Used Date Smoking Tobacco: Former Cigarettes 0.5 45.5 0 12/30/1967 - 07/17/2013 Smokeless Tobacco: Never Alcohol Use Standard Drinks/Week Comments Yes 2 (1 standard drink = 0.6 oz pur e alcohol) [facility] Utilities Answer Date Recorded In [...] often do you attend chur ch or yazidi services? More than 4 times per year 10/28/2022 Do you belong to any clubs o r organizations such as religious groups, unions, fraternal or athletic groups, or [...] Answer Date Recorded PHQ-2 Score 2 11/07/2024 [facility] - Occupational [...] your living situation today? [facility] 01/22/2024 Education Answer Date Recorded What is the highest level of school you have completed or the highest degree you have received? Some college, no degree 10/28/2022 Comments No Sex and Gender Information Value Date Recorded Sex Assigned at Female 07/14/2018 10:14 AM CAR REPAIRER APPRENTICE Legal Sex Female 8:13 PM CAR REPAIRER APPRENTICE Gender Identity Female 07/14/2018 10:14 AM CAR REPAIRER APPRENTICE Sexual Orientation Straight 07/14/2018 10 :14 AM CAR REPAIRER APPRENTICE documented as of this encounter Plan of Treatment Upcoming Encounters Date Type Department Care Team (Late st Contact Info) Description 03/31/2025 4:00 PM CDT Telemedicine Department of Family Medicine, [facility], in [place] [address] [facility] [place] [address] Mickey Mills M.B.B.S., M.D. [address] [facility] [address] documented as of this encounter Visit Diagnoses Not on filedocumented in this encounter Additional Health Concerns Assessment Noted Time PHQ-9 Depression Total Score: 6 09/05/19 20 10:01 AM CAR REPAIRER APPRENTICE documented as of this encounter Care Teams Shrimper Relationship Specialty Start Date End Date Mickey Mills M.B.B.S., MJudith. 300 [facility] [place] [address] PCP - General Family Medicine 09/05/19 documented as of this encounter
--- OUTSIDE RECORDS SUMMARY | 2024-11-29 17:10 | XMS_ITS | Encounter Summary ---
Author Organization [place] Address [address] [place] [address]. [place] [address] Care Team Providers Care Stripper Preliminary Name Role Phone Wilber Mittal Primary Care Provider Maxi Tate MD Unavailable [phone] Lela Zapata RN Unavailable Unavailable Mini Frazier MD Unavailable [phone] Maxi Tate MD Unavailable [phone] Mickey Mlils MD Primary Care Provider Encounter Details Date Type Department Care Team (Late st Contact Info) Description 03/04/2022 [facility] Medical Advice [facility] [address] 4th [place] [address] Anthony Velasquez RN Social History Tobacco Use Types Packs/Day [...] PM CDT Legal Sex Female 5:02 PM SMUTTER Gender Identity Female 10/22/2019 10:44 AM SMUTTER Sexual Orientation Straight 06/04/2019 11 :41 AM [...] Description 12/26/2024 9:30 AM CDT Office Visit [facility] [place] [address] [facility] [address] [place] [address] Galina Lopez APRN ASSISTANT FITNESS MANAGER 1600 [facility] 101 [place], [place] [phone] documented as of this encounter Visit Diagnoses Not on filedocumented in this encounter Additional Health Concerns Assessment Noted Time PHQ-9 Depression Total Score: 6 08/02/20 10:51 AM SMUTTER documented as of this encounter Care Teams Stripper Preliminary Relationship Specialty Start Date End Date Wilber Mittal PCP - General 09/15/12 07/12/23 Mickey Mills MD [address] [place] [phone] PCP - General 07/13/23 Maxi Tate MD [address] [place] [address] [phone] Otolaryngology 10/31/16 Lela Zapata, SHAREE Specialty Weld Inspector ENT-Otolaryngology 01/18/19 Mini Frazier MD [address] [place] [address] [phone] Gastroenterology 08/05/19 Maxi Tate MD 420 [place] [address] Assigned Surgical Provider 06/08/20 documented as of this encounter
--- OUTSIDE RECORDS SUMMARY | 2024-11-29 17:10 | XMS_ITS | Encounter Summary ---
Author Organization [facility] Address [address] [place] [address]. [place] [address] Care Team Providers Care Delivery Crew Member Name Role Phone Maxi Tate MD Unavailable [phone] Lela Zapata RN Unavailable Unavailable Mini Frazier MD Unavailable [phone] Maxi Tate MD Unavailable [phone] Mickey Mills MD Primary Care Provider Encounter Details Date Type Department Care Team (Late st Contact Info) Description 08/02/2024 [facility] Medical Advice [facility] [address] 4th [place] [address] Maxi Tate MD 420 [facility] 396 [place] [address] Social History Tobacco Use Types [...] Getting School Help Needed Not on file 09/22 /2023 Interpersonal Safety Answer Date Record ed Do you feel physically and e motionally safe where you currently live? Yes 08/01/2024 Within the past 12 months, h ave you been hit, slapped, kicked or otherwise physically hurt by someone? No 08/01/2024 Within the past 12 months, h ave you been humiliated or emotionally abused in other ways by your partner or ex-partner? No 08/01/2024 Comments No Sex and Gender Information Value Date Recorded Sex Assigned at Female 02/16/2021 5:23 PM CDT Legal Sex Female 5:02 PM COUNTER WEIGHER Gender Identity Female 10/22/2019 10:44 AM COUNTER WEIGHER Sexual Orientation Straight 06/04/2019 11 :41 AM CDT documented as of this encounter Plan of Treatment Upcoming Encounters Date Type Department Care Team (Late st Contact Info) Description 12/26/2024 9:30 AM CDT Office Visit [facility] Pain Management [place] [address] [place] [address] [address] [place] [address] Galina Lopez APRN STAFF PHARMACIST 1600 [facility] 101 [place] [address] documented as of this encounter Visit Diagnoses Not on filedocumented in this encounter Additional Health Concerns Assessment Noted Time PHQ-9 Depression Total Score: 15 024 2:52 PM COUNTER WEIGHER documented as of this encounter Care Teams Delivery Crew Member Relationship Specialty Start Date End Date Mickey Mills MD [address] [place] [phone] PCP - General 07/13/23 Maxi Tate MD 420 [facility] 396 [place], [place] [address] Otolaryngology 10/31/16 Lela Zapata, SHAREE Specialty Care Manager Cna ENT-Otolaryngology 01/18/19 Mini Frazier MD [address] [place] [address] Gastroenterology 08/05/19 Maxi Tate MD [address] [place] [address] 396 [place], [place] [address] Assigned Surgical Provider 06/08/20 documented as of this encounter
--- OUTSIDE RECORDS SUMMARY | 2024-11-29 17:10 | XMS_ITS | Encounter Summary ---
Author Organization [place] Address [address] [place] [address] Care Team Providers Care Bench Loom Weaver Name Role Phone Wilber Mittal Primary Care Provider Maxi Tate MD Unavailable [phone] Lela Zapata RN Unavailable Unavailable Mini Frazier MD Unavailable [phone] Nguyen Neal PA-C Unavailable [phone] Maxi Tate MD Unavailable [phone] Mini Frazier MD Unavailable [phone] Mickey Mills MD Primary Care Provider [phone] Encounter Details Date Type Department Care Team (Late st Contact Info) Description 09/12/2017 MyC Medical Advice [facility] Ear Nose [facility] Throat [address] [facility] [address] 4th [place] [address] Maxi Tate MD 420 [facility] 396 [place] [address] Social History Tobacco Use Types [...] CDT Legal Sex Female 5:02 PM TAX INVESTIGATOR Gender Identity Female 10/22/2019 10:44 AM TAX INVESTIGATOR Sexual Orientation Straight 06/04/2019 11 :41 AM CDT documented as of this encounter Plan of Treatment Upcoming Encounters Date Type Department Care Team (Late st Contact Info) Description 12/26/2024 9:30 AM CDT Office Visit [facility] Pain Management [place] [address] [place] [address] Galina Lopez APRN MEDICAL STENOGRAPHER [address] [facility] 101 [place] [address] documented as of this encounter Visit Diagnoses Not on filedocumented in this encounter Care Teams Bench Loom Weaver Relationship Specialty Start Date End Date Wilber Mittal PCP - General 09/15/12 07/12/23 Mickey Mills MD [address] [place] [phone] PCP - General 07/13/23 Maxi Tate MD [address] [place] [address] 396 [place], [place] [address] Otolaryngology 10/31/16 Lela Zapata, SHAREE Specialty Chain Pegger ENT-Otolaryngology 01/18/19 Mini Frazier MD [address] [place] [address] [phone] Gastroenterology 08/05/19 Nguyen Neal, PA-C [address] [place] [address] [phone] Assigned Pediatric Specialist Provider 06/08/20 12/08/20 Maxi Tate MD [address] [place] [address] 396 [place], [place] [address] Assigned Surgical Provider 06/08/20 Mini Frazier MD [address] [place] [address] Assigned Gastroenterology Provider 06/08/20 04/06/21 documented as of this encounter
--- OUTSIDE RECORDS SUMMARY | 2024-11-29 17:10 | XMS_ITS | Encounter Summary ---
Author Organization [place] Address [address] [place] [address] Care Team Providers Care Hog Man Name Role Phone Wilber Mittal Primary Care Provider Maxi Tate MD Unavailable [phone] Lela Zapata RN Unavailable Unavailable Mini Frazier MD Unavailable [phone] Nguyen Neal PA-C Unavailable [phone] Maxi Tate MD Unavailable [phone] Mini Frazier MD Unavailable [phone] Mickey Mills MD Primary Care Provider Encounter Details Date Type Department Care Team (Late st Contact Info) Description 09/01/2017 MyC Medical Advice [facility] Ear Nose and Throat [address] [facility] [address] 4th [place] [address] Maxi Tate MD 420 [facility] 396 [place] [address] Social History Tobacco Use Types Packs/Day Years Used Date Smoking Tobacco: Former Cigarettes 0.5 40 0 10/27/1972 - 10/27/2012 Smokeless Tobacco: Never Alcohol Use Standard Drinks/Week Comments Yes 0 (1 standard drink = 0.6 oz pur e alcohol) minimal Comments No Sex and Gender Information Value Date Recorded Sex Assigned at Female 02/16/2021 5:23 PM CDT Legal Sex Female 5:02 PM GAMB CUTTER Gender Identity Female 10/22/2019 10:44 AM GAMB CUTTER Sexual Orientation Straight 06/04/2019 11 :41 AM CDT documented as of this encounter Plan of Treatment Upcoming Encounters Date Type Department Care Team (Late st Contact Info) Description 12/26/2024 9:30 AM CDT Office Visit [facility] Pain Management [place] [address] [place] [address] Galina Lopez APRN INSTRUMENT LENS GRINDER [address] [facility] 101 [place] [address] documented as of this encounter Visit Diagnoses Not on filedocumented in this encounter Care Teams Hog Man Relationship Specialty Start Date End Date Wilber Mittal PCP - General 09/15/12 07/12/23 Mickey Mills MD [address] [place] [phone] PCP - General 07/13/23 Maxi Tate MD [address] [place] [address] 396 [place], [place] [phone] Otolaryngology 10/31/16 Lela Zapata, SHAREE Specialty Content Checker ENT-Otolaryngology 01/18/19 Mini Frazier MD [address] [place] [address] 259055 Gastroenterology 08/05/19 Nguyen Neal, PA-C [address] [place] [address] [phone] Assigned Pediatric Specialist Provider 06/08/20 12/08/20 Maxi Tate MD [address] [place] [address] 396 [place], [place] [phone] Assigned Surgical Provider 06/08/20 Mini Frazier MD [address] [place] [address] Assigned Gastroenterology Provider 06/08/20 04/06/21 documented as of this encounter
--- OUTSIDE RECORDS SUMMARY | 2024-11-29 17:10 | XMS_ITS | Encounter Summary ---
Author Organization [place] Address [address] [place] [address] Care Team Providers Care Property Man Name Role Phone Wilebr Mittal Primary Care Provider Maxi Tate MD Unavailable [phone] Lela Zapata RN Unavailable Unavailable Mini Frazier MD Unavailable [phone] Maxi Tate MD Unavailable [phone] Mickey Mills MD Primary Care Provider Encounter Details Date Type Department Care Team (Late st Contact Info) Description 02/25/2022 [facility] Medical Advice [place] [address] [facility] 5th [place] [address] Maxi Tate MD [address] [place] [address] Social History Tobacco Use Types Packs/Day Years Used Date Smoking Tobacco: Former Cigarettes 0.5 40 0 10/27/1972 - 10/27/2012 Smokeless Tobacco: Never Alcohol Use Standard Drinks/Week Comments Not Currently 0 (1 standard drink = 0.6 oz pur e alcohol) PHQ-2 Answer Date Recorded PHQ-2 Score 0 09/17/2021 Comments No Sex and Gender Information Value Date Recorded Sex Assigned at Female 02/16/2021 5:23 PM CDT Legal Sex Female 5:02 PM CIRCUIT DESIGN ENGINEER Gender Identity Female 10/22/2019 10:44 AM CIRCUIT DESIGN ENGINEER Sexual Orientation Straight 06/04/2019 11 :41 AM CDT COVID-19 Exposure Response Date Recorded In the last 10 days, have yo u been in contact with someone who was confirmed or suspected to have Coronavirus/COVID-19? No / Unsure 02/11/2022 8:06 AM CDT documented as of this encounter Plan of Treatment Upcoming Encounters Date Type Department Care Team (Late st Contact Info) Description 12/26/2024 9:30 AM CDT Office Visit [facility] Pain Management [place] [address] [place] [address] Galina Lopez APRN COLLECTION TELLER [address] [facility] 101 [place] [address] documented as of this encounter Visit Diagnoses Not on filedocumented in this encounter Additional Health Concerns Assessment Noted Time PHQ-9 Depression Total Score: 6 08/02/20 19 10:51 AM CIRCUIT DESIGN ENGINEER documented as of this encounter Care Teams Property Man Relationship Specialty Start Date End Date Wilber Mittal PCP - General 09/15/12 07/12/23 Mickey Mills MD [address] [place] [phone] PCP - General 07/13/23 Maxi Tate MD 420 [facility] 396 [place], [place] [phone] Otolaryngology 10/31/16 Lela Zapata, SHAREE Specialty Senior Drafter ENT-Otolaryngology 01/18/19 Mini Frazier MD [address] [place] [address] Gastroenterology 08/05/19 Maxi Tate MD [address] [place] [address] 396 [place], [place] [address] Assigned Surgical Provider 06/08/20 documented as of this encounter
--- OUTSIDE RECORDS SUMMARY | 2024-11-29 17:10 | XMS_ITS | Encounter Summary ---
Author Organization [facility] Address [address] [place] [address]. [place] [address] Care Team Providers Care Local Company Intermodal Truck Driver Name Role Phone Maxi Tate MD Unavailable [phone] Lela Zapata RN Unavailable Unavailable Mini Frazier MD Unavailable [phone] Maxi Tate MD Unavailable [phone] Mickey Mills MD Primary Care Provider [phone] Encounter Details Date Type Department Care Team (Late st Contact Info) Description 07/06/2024 [facility]rology Clinics [address], [address] [place] [address] [facility] Social History Tobacco Use Types Packs/Day Years [...] PM CDT Legal Sex Female 5:02 PM SPINE SURGEON Gender Identity Female 10/22/2019 10:44 AM SPINE SURGEON Sexual Orientation Straight 06/04/2019 11 :41 AM CDT documented as of this encounter Plan of Treatment Upcoming Encounters Date Type Department Care Team (Late st Contact Info) Description 12/26/2024 9:30 AM CDT Office Visit [facility] Pain Management [place] [address] [place] [address] Galina Lopez APRN JAVA SOFTWARE DEVELOPER 1600 [facility] 101 [place] [address] documented as of this encounter Visit Diagnoses Not on filedocumented in this encounter Additional Health Concerns Assessment Noted Time PHQ-9 Depression Total Score: 15 024 2:52 PM SPINE SURGEON documented as of this encounter Care Teams Local Company Intermodal Truck Driver Relationship Specialty Start Date End Date Mickey Mills MD [address] [place] [phone] PCP - General 07/13/23 Maxi Tate MD [address] [place] [address] Otolaryngology 10/31/16 Lela Zapata, RN Specialty Infrastructure Project Manager ENT-Otolaryngology 01/18/19 Mini Frazier MD [address] [place] [address] Gastroenterology 08/05/19 Maxi Tate MD [address] [address] Assigned Surgical Provider 06/08/20 documented as of this encounter
--- OUTSIDE RECORDS SUMMARY | 2024-11-29 17:10 | XMS_ITS | Encounter Summary ---
Author Organization [place] Address [address] [place] [address] Care Team Providers Care Director Behavioral Health Name Role Phone Wilber Mittal Primary Care Provider [phone] Maxi Tate MD Unavailable [phone] Lela Zapata RN Unavailable Unavailable Mini Frazier MD Unavailable [phone] Maxi Tate MD Unavailable [phone] Mickey Mills MD Primary Care Provider [phone] Encounter Details Date Type Department Care Team (Late st Contact Info) Description 11/10/2022 [facility] Medical Advice [facility] N[facility] Th[facility]at Clinic [address] 4th [place] [address] Maxi Tate MD [address] [place] [address] Social History Tobacco Use Types Packs/Day [...] PM CDT Legal Sex Female 5:02 PM HOSPITAL SCIENTIST Gender Identity Female 10/22/2019 10:44 AM HOSPITAL SCIENTIST Sexual Orientation Straight 06/04/2019 11 :41 AM CDT documented as of this encounter Plan of Treatment Upcoming Encounters Date Type Department Care Team (Late st Contact Info) Description 12/26/2024 9:30 AM CDT Office Visit [facility] Pain Management [place] [address] [facility] [address] [place] [address] Galina Lopez, ANGELA BEFORE AND AFTER SCHOOL DAYCARE WORKER 1600 [facility] 101 [place], [place] [phone] documented as of this encounter Visit Diagnoses Not on filedocumented in this encounter Additional Health Concerns Assessment Noted Time PHQ-9 Depression Total Score: 6 08/02/20 10:51 AM HOSPITAL SCIENTIST documented as of this encounter Care Teams Director Behavioral Health Relationship Specialty Start Date End Date Wilber Mittal PCP - General 09/15/12 07/12/23 Mickey Mills MD [address] [place] [phone] PCP - General 07/13/23 Maxi Tate MD [address] [place] [address] Otolaryngology 10/31/16 Lela Zapata, RN Specialty Field Coil Winder ENT-Otolaryngology 01/18/19 Mini Frazier MD [address] [place] [address]185 Gastroenterology 08/05/19 Maxi Tate MD [address] [place] [address] [place] [address] Assigned Surgical Provider 06/08/20 documented as of this encounter
--- OUTSIDE RECORDS SUMMARY | 2024-11-29 17:10 | XMS_ITS | Encounter Summary ---
Author Organization [facility] Address [address] [place] [address] Care Team Providers Care Supervisor Keymodule Assembly Name Role Phone Mickey Mills M.D. Primary Care Nola trevizo Reason for Visit * Reason Onset Date Comments Dizziness 11/25/2024 Encounter Details Date Type Department Care Team (Late st Contact Info) Description 11/25/2024 Nurse Triage Department of Family Medicine, [facility], in [place], [place] 300 [facility] [place] [address] Nguyen Kim, RJaquanNJaquan [address] [place] [phone] Dizziness Social History Tobacco Use Types Packs/Day Years Used Date Smoking Tobacco: Former Cigarettes 0.5 45.5 0 12/30/1967 - 07/17/2013 Smokeless Tobacco: Never Alcohol Use Standard Drinks/Week Comments Yes 2 (1 standard drink = 0.6 oz pur e alcohol) [facility] Utilities Answer Date Recorded In the [...] 10/28/2022 How often do you attend chur or judaism services? More than 4 times per year 10/28/2022 Do you belong to any clubs o r organizations such as orthodox groups, unions, fraternal or athletic groups, or [...] Answer Date Recorded PHQ-2 Score 2 11/07/2024 [facility] [place] of Occupat ional Health - Occupational Stress [...] your living situation today? I have a [facility] place to live 01/22/2024 Education Answer Date Recorded What is the highest level of school you have completed or the highest degree you have received? Some college, no degree 10/28/2022 Comments No Sex and Gender Information Value Date Recorded Sex Assigned at Female 07/14/2018 10:14 AM ADMITTING OFFICER Legal Sex Female 8:13 PM ADMITTING OFFICER Gender Identity Female 07/14/2018 10:14 AM ADMITTING OFFICER Sexual Orientation Straight 07/14/2018 10 :14 AM ADMITTING OFFICER documented as of this encounter Miscellaneous Notes * Telephone Encounter - Nguyen Kim R.N. - 11/25/2024 3:36 PM CDT Chief Complaint / Reason for Call Patient is a 69 y.o. female. calling regarding Dizziness. Assessment Concern: States had a surgical procedure on 11-21 of [facility] Dizzy, assumes from taking oxycodone. Clammy, afebrile. Right arm, in which she had an IV has been bruised since procedure. Bruising has gradually worsened. Arm feels lumpy. Today arm tender. Yesterday did restarted Eliquis. Present for: Dizzy since procedure. Home cares tried: Ice to arm Calling to request: Appointment The recommended disposition is See a health care provider within 24 hours. Caller was warm transferred to a surveillance inspector, Patient Appointment Emulsion Coater at the clinic for further assistance. Scheduled today at 1740. Reason for Disposition [1] MODERATE dizziness (e.g., interferes with normal activities) AND [2] has NOT been evaluated by doctor (or LIEUTENANT GOVERNOR/PA) for this (Exception: Dizziness caused by heat exposure, sudden standing, or poor fluid intake.) Protocols used: Dizziness - [id number] Care Advice Patient/Caregiver understands and will follow care advice?: Yes, able to teach back Dizziness - [id number] Nurse Nguyen Lindsey Nov 25, 2024 03:43 PM Care Advice DRINK FLUIDS: * Drink several glasses of fruit juice, other clear fluids or water. * This will improve hydration and blood sugar levels. * If the weather is hot or you have a fever, make sure the fluids are cold. CALL BACK IF: * You pass out (faint) or are too weak to stand * You become worse documented in this encounter Plan of Treatment Upcoming Encounters Date Type Department Care Team (Late st Contact Info) Description 03/31/2025 4:00 PM CDT Telemedicine Department of Family Medicine, [facility], in [place], [place] 300 [place] [address] Mickey Mills M.B.B.S., MJudith. 300 [place] [address] documented as of this encounter Visit Diagnoses Not on filedocumented in this encounter Additional Health Concerns Assessment Noted Time PHQ-9 Depression Total Score: 6 09/05/19 20 10:01 AM ADMITTING OFFICER documented as of this encounter Care Teams Supervisor Keymodule Assembly Relationship Specialty Start Date End Date Mickey Mills M.B.B.S., MJudith. [address] [place] [address] [place] [address] PCP - General Family Medicine 09/05/19 documented as of this encounter
--- OUTSIDE RECORDS SUMMARY | 2024-11-29 17:10 | XMS_ITS | Encounter Summary ---
Author Organization [facility] Address [address] [place] [address] Care Team Providers Care Repairer Pump Name Role Phone Wilber Mittal Primary Care Provider [phone] Maxi Tate MD Unavailable [phone] Lela Zapata RN Unavailable Unavailable Mini Frazier MD Unavailable [phone] Maxi Tate MD Unavailable [phone] Mickey Mills MD Primary Care Provider [phone] Encounter Details Date Type Department Care Team (Late st Contact Info) Description 03/10/2022 [facility] [place] [facility] [address] 4th [place] [address] Maxi Tate MD [address] [place] [address] Social History Tobacco Use Types Packs/Day [...] PM CDT Legal Sex Female 5:02 PM GERMAN TEACHER Gender Identity Female 10/22/2019 10:44 AM GERMAN TEACHER Sexual Orientation Straight 06/04/2019 11 :41 AM [...] Description 12/26/2024 9:30 AM CDT Office Visit [facility] [place] [address] [facility] [address] [place], [place] [id number] Galina Lopez APRN [employer]OR [address] [facility] [address] [place] [address] documented as of this encounter Visit Diagnoses Not on filedocumented in this encounter Additional Health Concerns Assessment Noted Time PHQ-9 Depression Total Score: 6 08/02/20 19 10:51 AM GERMAN TEACHER documented as of this encounter Care Teams Repairer Pump Relationship Specialty Start Date End Date Wilber Mittal PCP - General 09/15/12 07/12/23 Mickey Mills MD [address] [place] [phone] PCP - General 07/13/23 Maxi Tate MD [address] [address] Otolaryngology 10/31/16 Lela Zapata, SHAREE Specialty College Professor ENT-Otolaryngology 01/18/19 Mini Frazier MD [address] [place] [phone] Gastroenterology 08/05/19 Maxi Tate MD [address] [place] [address] [id number] Assigned Surgical Provider 06/08/20 documented as of this encounter
--- OUTSIDE RECORDS SUMMARY | 2024-11-29 17:10 | XMS_ITS | Encounter Summary ---
Author Organization [facility] Address [address] [place] [address] Care Team Providers Care Technical Operations Manager Name Role Phone Mickey Mills M.D. Primary Care Nola trevizo Reason for Visit * Reason Onset Date Comments Mass 11/29/2024 Encounter Details Date Type Department Care Team (Late st Contact Info) Description 11/29/2024 Nurse Triage Department of Family Medicine, [facility], in [place], [place] [address] [place] [address] Raj Roberts RRosario [address] [place] [address] [place] Social History Tobacco Use Types Packs/Day Years Used Date Smoking Tobacco: Former Cigarettes 0.5 45.5 0 12/30/1967 - 07/17/2013 Smokeless Tobacco: Never Alcohol Use Standard Drinks/Week Comments Yes 2 (1 standard drink = 0.6 oz pur e alcohol) [facility] Utilities Answer Date Recorded In [...] How often do you attend chur or restorationism services? More than 4 times per year 10/28/2022 Do you belong to any clubs o r organizations such as scientologist groups, unions, fraternal or athletic groups, or [...] Answer Date Recorded PHQ-2 Score 2 11/07/2024 [facility] [place] of Occupat ional Health - Occupational Stress [...] living situation today? I have a [facility] place to live 01/22/2024 Education Answer Date Recorded What is the highest level of school you have completed or the highest degree you have received? Some college, no degree 10/28/2022 Comments No Sex and Gender Information Value Date Recorded Sex Assigned at Female 07/14/2018 10:14 AM PRESSING MACHINE OPERATOR Legal Sex Female 8:13 PM PRESSING MACHINE OPERATOR Gender Identity Female 07/14/2018 10:14 AM PRESSING MACHINE OPERATOR Sexual Orientation Straight 07/14/2018 10 :14 AM PRESSING MACHINE OPERATOR documented as of this encounter Miscellaneous Notes * Telephone Encounter - Raj Roberts R.N. - 11/29/2024 2:59 PM CDT Chief Complaint / Reason for Call Patient is a 69 y.o. female calling regarding Mass. Assessment Concern: Surgery on 11/21, seen on 11/25 with concerns for a lumpy bruise around her IV site on her right wrist. Today she noticed a lump near her inner right elbow that is smaller then a dime and bigger than a pea that is sore with a vein protruding along with a large area of redness. Not near her old IV site and feels bruising is going down from around IV site. Present for: New today Home cares tried: Monitor Calling to request: Appointment The recommended disposition is See a health care provider within 4 hours. Patient was warm transferred to [facility], Patient Appointment Transportation Specialist at the clinic for further assistance. Reason for Disposition [1] Swelling is red AND [2] size > 2 inches (5.0 cm) (Exception: Itchy area of skin.) Protocols used: Skin Lump or Localized Bqnvkefc-Oxghe-BA Care Advice Patient/Caregiver understands and will follow care advice?: Yes, able to teach back Skin Lump or Localized Ijmbggik-Mglwl-JC Nurse Raj Obrien Nov 29, 2024 03:03 PM Care Advice SEE HCP (OR PCP TRIAGE) WITHIN 4 HOURS: CALL BACK IF: * You become worse CARE ADVICE given per Skin Lump or Localized Swelling (Adult) guideline. documented in this encounter Plan of Treatment Upcoming Encounters Date Type Department Care Team (Late st Contact Info) Description 03/31/2025 4:00 PM CDT Telemedicine Department of Family Medicine, [facility], in [address] [address] Mickey Mills M.B.B.S., M.D. [address] [place] [address] documented as of this encounter Visit Diagnoses Not on filedocumented in this encounter Additional Health Concerns Assessment Noted Time PHQ-9 Depression Total Score: 6 09/05/19 20 10:01 AM PRESSING MACHINE OPERATOR documented as of this encounter Care Teams Technical Operations Manager Relationship Specialty Start Date End Date Mickey Mills M.B.B.S., M.D. [address] [place] [address] [place] [address] PCP - General Family Medicine 09/05/19 documented as of this encounter
--- OUTSIDE RECORDS SUMMARY | 2024-11-29 17:10 | XMS_ITS | Encounter Summary ---
Author Organization [facility] Address [address] [place] [address] Care Team Providers Care Online Merchandiser Name Role Phone Mickey Mills M.D. Primary Care Nola trevizo Reason for Visit * Reason Comments Pre-op Exam 11/21/24 Dr. Bebeto An tongue surgery [facility] * Appointment Request (Routine) - Closed Specialty Diagnoses / Procedures Referred By Philipp an Referred To Contact Family Medicine Referral ID Status Reason Start Date Expiration Date Visits Re quested Visits Authorized [id number] Closed 11/04/2024 02/04/2026 1 1 Encounter Details Date Type Department Care Team (Late st Contact Info) Description 11/08/2024 8:30 AM CDT Office Visit Department of Family Medicine, [facility], in [place] [address] [place] [phone] FarrukhJonelle Doan APRN, C.N.P., D.N.P. [address] [place] [phone] Preoperative Exam (Primary Dx); Malignant Neoplasm Of Tongue (HCC); History Of Falling Social History Tobacco Use Types Packs/Day Years Used Date Smoking Tobacco: Former Cigarettes 0.5 45.5 0 12/30/1967 - 07/17/2013 Smokeless Tobacco: Never Tobacco Cessation:Counseling Given: Not Answered Alcohol Use Standard Drinks/Week Comments Yes 2 (1 standard drink = 0.6 oz pur e alcohol) [facility] Utilities Answer Date Recorded In [...] often do you attend chur ch or tenriism services? More than 4 times per year [...] Answer Date Recorded PHQ-2 Score 2 11/07/2024 [facility] of Occupat ional Health - Occupational Stress [...] your living situation today? I have a [facility] place to live 01/22/2024 Education Answer Date Recorded What is the highest level of school you have completed or the highest degree you have received? Some college, no degree 10/28/2022 Comments No Sex and Gender Information Value Date Recorded Sex Assigned at Female 07/14/2018 10:14 AM GUM SPRAYER Legal Sex Female 8:13 PM GUM SPRAYER Gender Identity Female 07/14/2018 10:14 AM GUM SPRAYER Sexual Orientation Straight 07/14/2018 10 :14 AM GUM SPRAYER documented as of this encounter Last Filed Vital Signs Vital Sign Reading Time Taken Comments Blood Pressure 138/83 11/08/2024 8:21 AM CDT Pulse 63 11/08/2024 8:21 AM CDT Temperature 36 C (96.8 F) 11/08/2024 8:16 AM CDT Respiratory Rate 16 11/08/2024 8:16 AM CDT Oxygen Saturation 96% 11/08/2024 8:1 6 AM CDT Inhaled Oxygen Concentration - - Weight 73.4 kg (161 lb 13.1 oz) 025 8:16 AM CDT Height 163.4 cm (5' 4.33) 11/08/2024 8 :16 AM CDT with shoes Body Mass Index 27.49 11/08/2024 8:16 AM CDT documented in this encounter H&P Notes * Jonelle Mckeon APRN, C.N.P., D.N.P. - 11/08/2024 8:30 AM CDT SUBJECTIVE PREOPERATIVE HISTORY AND PHYSICAL CHIEF COMPLAINT/REASON FOR VISIT Kelly Langley is a 69 y.o. female who presents for evaluation of Pre-op Exam (11/21/24 Dr. Tate ENT tongue surgery [facility]). 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 Excision of Tongue Lesions Current Medications[1] Allergies[2] REVIEW OF SYSTEMS General: Denies recent fever, weight loss, or extreme fatigue. Eyes: Denies double vision or sudden loss of vision. ENT: Denies sore throat, runny nose, ear pain, or hearing loss. Heart: Denies chest pain or irregular heartbeats. Respiratory: Denies cough, wheezing, or shortness of breath. Digestion: Denies nausea, vomiting, diarrhea, or constipation. Genitourinary: Denies frequent or painful urination. Skin: Denies rash, sores, excessive bruising, or change of a mole. Nerves/Brain: Denies headache, persistent weakness, or numbness. Endocrine: Denies excessive thirst or urination, cold or heat intolerance. Blood: Denies unusual bruising or bleeding, or enlarged lymph nodes. AANA PREANESTHESIA QUESTIONS: -Have you recently had a cold or the flu? no -Are you allergic to latex (rubber) products? no -Have you experienced chest pain? no -Do you have a heart condition? no -Do you have hypertension (high blood pressure)? History of hypertension and takes lisinopril 20 mgdaily, blood pressure today 138/83. -Do you experience shortness of breath? no -Do you have asthma, bronchitis, obstructive sleep apnea? no -Do you snore loudly or have any other breathing problems? no -Do you (or did you) smoke? Smoking Tobacco: Former Cigarettes 0.5 40 10/27/1972 - 10/27/2012 -Do you consume alcohol? Occasionally If yes: Drinks/week: About 2 glasses once week of wine -Do you take or have you taken recreational drugs? No (Thc tinctures, gummies and sodas) -Have you taken cortisone (steroids) in the last 6 months? no -Do you take any nonsteroidal or anti-inflammatory drugs (NSAIDS) such as aspirin, ibuprofen, naproxen? no, patient is on Eliquis 5 mg b.i.d. -Anticoagulation: no - Bleeding or clotting disorders: no. -Do you take herbal supplements, or complementary or alternative medicines? (Thc tinctures, gummiesand sodas) -Do you have diabetes? no -Have you had hepatitis, liver disease, or jaundice? no -Do you have a thyroid condition? Hypothyroidism and currently takes levothyroxine 100 mcg tablet daily -Do you have or have you ever had kidney disease? no -Do you have ulcers or other stomach disorders? no -Do you have a hiatal hernia? Hiatal hernia -Do you have back or neck pain? no -Do you have numbness, weakness, or paralysis of your extremities? no -Do you have any muscle or nerve disease? no -Do you or any of your family have sickle cell trait? no -Have you or any blood relatives had difficulties with anesthesia? no -Do you have bleeding problems? no -Do you have loose, chipped or false teeth, bridge work, or oral piercings (such as studs or rings)in your tongue or lip? no -Do you wear contact lenses? No- wears glasses -Have you ever received a blood transfusion? no -(Women) Are you ? No Postmenopausal - History Bacterial Endocarditis: no -Mallampati Class: III. -Infection/Immunosuppression: no -History of MRSA skin infections: no ASA PS CLASSIFICATION: II MEDICAL HISTORY Problem List[3] Surgical History[4] Social History[5] Family History[6] OBJECTIVE Vitals: 11/08/24 0816 11/08/24 0821 BP: 147/83 138/83 BP Location: Right arm Right arm Patient Position: Sitting Sitting Cuff Size: Regular Regular Pulse: 69 63 Resp: 16 Temp: 36 ??C TempSrc: Temporal SpO2: 96% Weight: 73.4 kg Height: 163.4 cm Body mass index is 27.49 kg/m??. PHYSICAL EXAMINATION Constitutional Appearance: Normal appearance. HENT Head: Normocephalic and atraumatic. Right Ear: Tympanic membrane normal. Left Ear: Tympanic membrane normal. Mouth/Throat: Tongue: Lesions present. Comments: Claudette on tongue Eyes Pupils: Pupils are equal, round, and reactive to light. Cardiovascular Rate and Rhythm: Normal rate and regular rhythm. Heart sounds: Normal heart sounds, S1 normal and S2 normal. Pulmonary Effort: Pulmonary effort is normal. Breath sounds: Normal breath sounds. Abdominal General: Bowel sounds are normal. Musculoskeletal General: Normal range of motion. Cervical back: Normal range of motion. Skin General: Skin is warm. Capillary Refill: Capillary refill takes less than 2 seconds. Neurological General: No focal deficit present. Mental Status: She is alert and oriented to person, place, and time. Psychiatric Mood and Affect: Mood normal. Behavior: Behavior normal. ASSESSMENT / PLAN #1 Preoperative exam #2 Malignant neoplasm of tongue - This patient is medically optimized for the above-mentioned procedure. - She is capable of achieving greater than 4 METS without cardiopulmonary symptoms. - Advised no aspirin-containing products 7 days prior to procedure. - Follow-up as needed. #3 History of falling eKlly denies any recent falls. Jonelle Mckeon APRN, C.N.P., D.N.P. [1] Current Outpatient Medications Medication Sig Dispense Refill acetaminophen (TYLENOL) 325 mg tablet Take 325-650 mg by mouth. al mag ztkak-cparpqlgclgtexy-atbhacja (Magic Mouthwash) suspension Take 5 mL by mouth every 4 hoursif needed for pain. albuterol (ProAir HFA) 90 mcg/actuation inhaler Inhale 2 puffs every 4 (four) hours as needed for wheezing or shortness of breath. 54 g 3 apixaban (Eliquis) 5 mg tablet Take 1 tablet (5 mg total) by mouth 2 (two) times a day. gabapentin (Neurontin) 100 mg capsule Take 100 mg by mouth 3 (three) times a day. ivermectin (STROMECTOL) 3 mg tablet Once a week x 3 doses levothyroxine 100 mcg tablet Take 1 tablet (100 mcg total) by mouth daily. 30 tablet 3 lidocaine viscous (lidocaine) 2 % mucosal solution 5 mL. lidocaine viscous (XYLOCAINE) 2 % mucosal solution 15 mL. lisinopriL 20 mg tablet Take 1 tablet (20 mg total) by mouth daily. 90 tablet 3 montelukast (Singulair) 10 mg tablet take one tablet by mouth at bedtime 90 tablet 3 nystatin (Mycostatin) 100,000 unit/mL suspension TAKE 1 TEASPOONFUL BY MOUTH FOUR TIMES A DAY omeprazole (PriLOSEC) [address] capsule TAKE ONE CAPSULE BY MOUTH EVERY DAY 90 capsule 3 UNABLE TO FIND Take by mouth at bedtime as needed. Med Name: CBD/THC gumgeoffrey No current facility-administered medications for this visit. 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 THERAPEUTIC 07/10/1975 TUBAL LIGATION may 16 1980 [5] Social History Tobacco Use Smoking status: Former Current packs/day: 0.00 Average packs/day: 0.5 packs/day for 45.5 years (22.8 ttl pk-yrs) Types: Cigarettes Start date: 12/30/1967 Quit date: 07/17/2013 Years since quittin.3 Smokeless tobacco: Never Vaping Use Vaping status: never used Substance Use Topics Alcohol use: Yes Alcohol/week: 2.0 standard drinks of alcohol Types: 2 Glasses of wine per week Drug use: Yes Frequency: 7.0 times per week Types: Marijuana Comment: Micro dose THC/CBD for pain [6] Family History Problem Relation Name Age of Onset Diabetes Mother cruz bernard Hypothyroidism Mother cruz bernard Coronary artery disease Mother cruz bernard Osteoporosis Mother cruz bernard Arthritis Mother cruz bernard Dementia Mother cruz bernard Angina Mother cruz bernard Lung cancer Father harry bernard Melanoma Father harry bernard Hypertension Father harry bernard Alcohol abuse Father harry bernard Other cancer Sister evy bernard half sister; maybe bladder cancer COPD Sister steven bernard Transient ischemic attack Sister steven bernard Hypertension Sister steven bernard Arthritis Sister steven bernard low back Smoker Sister steven bernard No Known Problems Marcelo Hightower Gastrointestinal and digestive disorder Daughter Brianna Avoyelles Autoimmune disorder Daughter Brianna Scar unknown as of right now (2023) Food Allergies Daughter Brianna Scar Premature Son Nacho Abbott Cause of - lived until 2 days old Breast cancer Mother's Sister tao alfaro Other cancer Mother's Sister rachid estrellaw Rheum arthritis Mother's Sister rilfreida arellano Colon cancer Mother's Sister mandeep castle Other cancer Mother's Sister daya partridge Dementia Mother's Sister Audrey Saran Other cancer Mother's Brother naveen scherff Dementia Mother's Brother naveen scherff Other cancer Mother's Brother bill scherff Other cancer Mother's Brother bridget scherff Other cancer Mother's Brother mila scherff No Known Problems Father's Sister Shahla Baez No Known Problems Father's Sister Keri Robb Alcoholic Father's Sister Blade Bernard Alcohol abuse Father's Sister Blade Bernard Hypertension Father's Brother Cm Bernard Stroke Father's Brother Cm Bernard Hypertension Father's Brother Maxi Bernard Heart attack Father's Brother Maxi Bernard Asthma Maternal Grandmother eric gomez Pneumonia Maternal Grandfather Abhijeet Gomez No Known Problems Paternal Grandmother Keila Bernard Hypertension Paternal Grandfather Cm Bernard Stroke / transient ischemic attack referral Paternal Grandfather Cm Bernard 59 Cause of Thyroid disease Mother cruz bernard documented in this encounter Plan of Treatment Upcoming Encounters Date Type Department Care Team (Late st Contact Info) Description 03/31/2025 4:00 PM CDT Telemedicine Department of Family Medicine, [facility], in [place], [place] [address] [place] [address] Mickey Mills M.B.B.SJaquan, MThao [address] [place] [address] documented as of this encounter Visit Diagnoses Diagnosis Preoperative Exam- Primary Malignant Neoplasm Of Tongue (HCC) History Of Falling documented in this encounter Additional Health Concerns Assessment Noted Time PHQ-9 Depression Total Score: 6 09/05/19 20 10:01 AM GUM SPRAYER documented as of this encounter Care Teams Online Merchandiser Relationship Specialty Start Date End Date Mickey Mills M.B.B.SJaquan, MuJdith. [address] [place] [address] PCP - General Family Medicine 09/05/19 documented as of this encounter
--- OUTSIDE RECORDS SUMMARY | 2024-11-29 17:10 | XMS_ITS | Encounter Summary ---
Author Organization [facility] Address [address] [place] [address]. [place] [address] Care Team Providers Care Receiving Lead Name Role Phone Wilber Mittal Primary Care Provider [phone] Maxi Tate MD Unavailable Lela Zapata RN Unavailable Unavailable Mini Frazier MD Unavailable [phone] Maxi Tate MD Unavailable [phone] Mickey Mills MD Primary Care Provider Reason for Visit * Reason Onset Date Comments Medication Question 03/19/2022 Encounter Details Date Type Department Care Team (Late st Contact Info) Description 03/19/2022 Telephone [facility] [address] [place] [address] Maxi Tate MD [address] [facility] [address] [place] [address] Medication Question Social History Tobacco Use Types Packs/Day Years [...] CDT Legal Sex Female 5:02 PM CUSTOMER FIELD REPRESENTATIVE Gender Identity Female 10/22/2019 10:44 AM CUSTOMER FIELD REPRESENTATIVE Sexual Orientation Straight 06/04/2019 11 :41 AM CDT COVID-19 Exposure Response Date Recorded In the last 10 days, have yo u been in contact with someone who was confirmed or suspected to have Coronavirus/COVID-19? No / Unsure 03/11/2022 3:04 PM CDT documented as of this encounter Miscellaneous Notes * Telephone Encounter - OsbaldoStormy asifmak Garcia - 03/19/2022 3:31 PM CDT [facility] Call Center Phone Message May a detailed message be left on voicemail: no Reason for Call: Medication Question or concern regarding medication Prescription Clarification Name of Medication: oxyCODONE (ROXICODONE) 5 MG/5ML solution Prescribing Provider: Maxi Tate MD Pharmacy: [facility] What on the order needs clarification? Pharmacy calling for new prescription for medication in tablet form as pt's states insurance will cover. Please advise. Action Taken: Message routed to: [facility] ENT Travel Screening: Not Applicable documented in this encounter Plan of Treatment Upcoming Encounters Date Type Department Care Team (Late st Contact Info) Description 12/26/2024 9:30 AM CDT Office Visit [facility] [place] [address] [facility] [address] [place] [address] Galina Lopez APRN EXECUTIVE CONSULTANT [address] [id number] documented as of this encounter Visit Diagnoses Not on filedocumented in this encounter Additional Health Concerns Assessment Noted Time PHQ-9 Depression Total Score: 6 08/02/20 19 10:51 AM CUSTOMER FIELD REPRESENTATIVE documented as of this encounter Care Teams Receiving Lead Relationship Specialty Start Date End Date Wilber Mittal PCP - General 09/15/12 07/12/23 Mickey Mills MD [address] [place] [phone] PCP - General 07/13/23 Maxi Tate MD [address] [place] [phone] Otolaryngology 10/31/16 Lela Zapata, SHAREE Specialty Hopper Feeder ENT-Otolaryngology 01/18/19 Mini Frazier MD [address] [place] [phone] Gastroenterology 08/05/19 Maxi Tate MD [address] [place] [address] [phone] Assigned Surgical Provider 06/08/20 documented as of this encounter
--- OUTSIDE RECORDS SUMMARY | 2024-11-29 17:10 | XMS_ITS | Encounter Summary ---
Author Organization [facility] Address [address] [place] [address] Care Team Providers Care Computer Recycling Worker Name Role Phone Mickey Mills M.D. Primary Care Nola trevizo Encounter Details Date Type Department Care Team (Latest Contact Info) Description 09/14/2024 Results Follow-Up Department of Family Medicine, [facility], in [place], [place] [address] [place] [address] Kala Mcmillan M.D. [address] [place] [address] Thyroid Function [place], T4 (Thyroxine), Free, Serum, Thyroperoxidase (TPO) Antibodies Social History Tobacco Use Types Packs/Day Years Used Date Smoking Tobacco: Former Cigarettes 0.5 45.5 0 12/30/1967 - 07/17/2013 Smokeless Tobacco: Never Alcohol Use Standard Drinks/Week Comments Yes 2 (1 standard drink = 0.6 oz pur e alcohol) [facility] Utilities Answer Date Recorded In the past 12 months has e electric, gas, oil, or water [employer] threatened to shut off services in your [...] How often do you attend chur or jain services? More than 4 times per year 10/28/2022 Do you belong to any clubs o r organizations such as spiritism groups, unions, fraternal or athletic groups, or [...] Answer Date Recorded PHQ-2 Score 2 08/26/2023 [facility] - Occupational [...] your living situation today? I have a [facility] place to live 01/22/2024 Education Answer Date Recorded What is the highest level of school you have completed or the highest degree you have received? Some college, no degree 10/28/2022 Comments No Sex and Gender Information Value Date Recorded Sex Assigned at Female 07/14/2018 10:14 AM INSURANCE VERIFICATION SPECIALIST Legal Sex Female 8:13 PM INSURANCE VERIFICATION SPECIALIST Gender Identity Female 07/14/2018 10:14 AM INSURANCE VERIFICATION SPECIALIST Sexual Orientation Straight 07/14/2018 10 :14 AM INSURANCE VERIFICATION SPECIALIST documented as of this encounter Plan of Treatment Upcoming Encounters Date Type Department Care Team (Late st Contact Info) Description 03/31/2025 4:00 PM CDT Telemedicine Department of Family Medicine, [facility], in [place] [address] [facility] [place] [address] Mickey Mills M.B.B.S., M.D. [address] [facility] [place] [phone] documented as of this encounter Results * S-TSH (Thyroid-Stimulating Hormone - Sensitive) (10/10/2024 4:47 PM INSURANCE VERIFICATION SPECIALIST) TSH, Sensitive 2.5 0.3 - 4.2 mIU/L 10/10/2024 6:04 PM INSURANCE VERIFICATION SPECIALIST OWAT Blood (Blood, Venous) 10/10/2024 4:47 PM INSURANCE VERIFICATION SPECIALIST 10/10/2024 5:39 PM INSURANCE VERIFICATION SPECIALIST us Kala Mcmillan M.D. LAB BLOOD ADD-ON Final Resul t [facility] [address] [place] [address], [facility] OWAT [facility] in [place] [address] [place] [address] documented in this encounter Visit Diagnoses Diagnosis Hypothyroidism- Primary documented in this encounter Additional Health Concerns Assessment Noted Time PHQ-9 Depression Total Score: 6 09/05/19 20 10:01 AM INSURANCE VERIFICATION SPECIALIST documented as of this encounter Care Teams Computer Recycling Worker Relationship Specialty Start Date End Date Mickey Mills M.B.B.S., M.D. [address] [facility] [place] [address] PCP - General Family Medicine 09/05/19 documented as of this encounter
--- OUTSIDE RECORDS SUMMARY | 2024-11-29 17:10 | XMS_ITS | Encounter Summary ---
Author Organization [place] Address [address] [place] [address]. [place] [address] Care Team Providers Care Programmer Analyst Consultant Name Role Phone Maxi Tate MD Unavailable [phone] Lela Zapata RN Unavailable Unavailable Mini Frazier MD Unavailable [phone] Maxi Tate MD Unavailable [phone] Mickey [place] MD Primary Care Provider [phone] Encounter Details Date Type Department Care Team (Late st Contact Info) Description 02/24/2024 [facility] Medical Advice [facility] [address] 4th [place] [address] Maxi Tate MD 420 [facility] [address] [place] [address] Social History Tobacco Use Types [...] Help Needed Not on file 09/22 /2023 Comments No Sex and Gender Information Value Date Recorded Sex Assigned at Female 02/16/2021 5:23 PM CDT Legal Sex Female 5:02 PM THEATRICAL DRESSER Gender Identity Female 10/22/2019 10:44 AM THEATRICAL DRESSER Sexual Orientation Straight 06/04/2019 11 :41 AM CDT documented as of this encounter Plan of Treatment Upcoming Encounters Date Type Department Care Team (Late st Contact Info) Description 12/26/2024 9:30 AM CDT Office Visit [facility] Pain Management [place] [address] [place] [address] Drive [address] [place] [address] Galina Lpoez, ANGELA PURCHASING CONTRACTING CLERK 1600 [facility] [address] [place] [address] documented as of this encounter Visit Diagnoses Not on filedocumented in this encounter Additional Health Concerns Assessment Noted Time PHQ-9 Depression Total Score: 15 024 2:52 PM THEATRICAL DRESSER documented as of this encounter Care Teams Programmer Analyst Consultant Relationship Specialty Start Date End Date Mickey [place] MD [address] [place] [phone] PCP - General 07/13/23 Maxi Tate MD [address] [place] [address] Otolaryngology 10/31/16 Lela Zapata, SHAREE Specialty Triage Registered Nurse ENT-Otolaryngology 01/18/19 Mini Frazier MD 9[address] [place] [address] Gastroenterology 08/05/19 Maxi Tate MD [address] [address] Assigned Surgical Provider 06/08/20 documented as of this encounter
--- OUTSIDE RECORDS SUMMARY | 2024-11-29 17:11 | XMS_ITS | Encounter Summary ---
Author Organization [place] Address [address] [place] [address]. [place] [address] Care Team Providers Care Steam Trap Man Name Role Phone Maxi Tate MD Unavailable [phone] Lela Zapata RN Unavailable Unavailable Mini Frazier MD Unavailable [phone] Maxi Tate MD Unavailable [phone] Mickey [place] MD Primary Care Provider [phone] Encounter Details Date Type Department Care Team (Late st Contact Info) Description 01/29/2024 MyC Medical Advice [facility] [address] 4th [place] [address] Maxi Tate MD 420 [facility] 396 [place] [address] Social History Tobacco Use Types [...] PM CDT Legal Sex Female 5:02 PM ARBORICULTURE INSTRUCTOR Gender Identity Female 10/22/2019 10:44 AM ARBORICULTURE INSTRUCTOR Sexual Orientation Straight 06/04/2019 11 :41 AM CDT documented as of this encounter Plan of Treatment Upcoming Encounters Date Type Department Care Team (Late st Contact Info) Description 12/26/2024 9:30 AM CDT Office Visit [facility] Pain [facility] [place] [id number] [place] [address] Drive [address] [place] [address] Galina Lopez, ANGELA INSURANCE PREMIUM AUDITOR 1600 [facility] [address] [place] [address] documented as of this encounter Visit Diagnoses Not on filedocumented in this encounter Additional Health Concerns Assessment Noted Time PHQ-9 Depression Total Score: 15 024 2:52 PM ARBORICULTURE INSTRUCTOR documented as of this encounter Care Teams Steam Trap Man Relationship Specialty Start Date End Date Mickey [place] MD [address] [place] [phone] PCP - General 07/13/23 Maxi Tate MD [address] [place] [address] Otolaryngology 10/31/16 Lela Zapata, SHAREE Specialty Model Dresser ENT-Otolaryngology 01/18/19 Mini Frazier MD 909 [place] [address] Gastroenterology 08/05/19 Maxi Tate MD [address] [address] Assigned Surgical Provider 06/08/20 documented as of this encounter
--- OUTSIDE RECORDS SUMMARY | 2024-11-29 17:11 | XMS_ITS | Encounter Summary ---
Author Organization [facility] Address [address] [place] [address]. [place] [address] Care Team Providers Care Application Security Specialist Name Role Phone Wilber Mittal Primary Care Provider [phone] Maxi Tate MD Unavailable [phone] Lela Zapata RN Unavailable Unavailable Mini Frazier MD Unavailable [phone] Maxi Tate MD Unavailable [phone] Mickey [place] MD Primary Care Provider Encounter Details Date Type Department Care Team (Late st Contact Info) Description 10/21/2021 [facility] Medical [facility]ice [facility] [address] 4th [place] [address] Maxi Tate MD [address] [place] [address] [address] [place] [address] Social History Tobacco Use Types [...] PM CDT Legal Sex Female 5:02 PM DAMAGED FREIGHT INSPECTOR Gender Identity Female 10/22/2019 10:44 AM DAMAGED FREIGHT INSPECTOR Sexual Orientation Straight 06/04/2019 11 :41 AM CDT documented as of this encounter Plan of Treatment Upcoming Encounters Date Type Department Care Team (Late st Contact Info) Description 12/26/2024 9:30 AM CDT Office Visit [facility] [place] [address] [facility] [address] [place] [address] Galina Lopez, ANGELA FIELD CROP FARMING SUPERVISOR 1600 [facility] [address] [place], [place] [phone] documented as of this encounter Visit Diagnoses Not on filedocumented in this encounter Additional Health Concerns Assessment Noted Time PHQ-9 Depression Total Score: 6 08/02/20 10:51 AM DAMAGED FREIGHT INSPECTOR documented as of this encounter Care Teams Application Security Specialist Relationship Specialty Start Date End Date Wilber Mittal PCP - General 09/15/12 07/12/23 Mickey Mills MD [address] [place] [phone] PCP - General 07/13/23 Maxi Tate MD [address] [place] [address] Otolaryngology 10/31/16 Lela Zapata, RN Specialty Optical Advisor ENT-Otolaryngology 01/18/19 Mini Frazier MD [address] [place] [address] Gastroenterology 08/05/19 Maxi Tate MD [address] [place] [address] [place] [address] Assigned Surgical Provider 06/08/20 documented as of this encounter
--- OUTSIDE RECORDS SUMMARY | 2024-11-29 17:11 | XMS_ITS | Encounter Summary ---
Author Organization [place] Address [address] [place] [address]. [place] [address] Care Team Providers Care Silk Washing Machine Operator Name Role Phone Maxi Tate MD Unavailable [phone] Lela Zapata RN Unavailable Unavailable Mini Frazier MD Unavailable [phone] Maxi Tate MD Unavailable [phone] Mickey [place] MD Primary Care Provider Encounter Details Date Type Department Care Team (Late st Contact Info) Description 11/23/[address] [facility] [address] 4th [place] [address] Maxi Tate MD 420 [facility] 396 [place] [address] Social History Tobacco Use Types Packs/Day Years Used Date Smoking Tobacco: Former Cigarettes 0.5 40 0 10/27/1972 - 10/27/2012 Smokeless Tobacco: Never Alcohol Use Standard Drinks/Week Comments Yes 0 (1 standard drink = 0.6 oz pur e alcohol) once a week PHQ-2 Answer Date Recorded PHQ-2 Score 4 08/23/2024 Adolescent Education Answer Date Record ed Getting School Help Needed Not on file 09/22 /2023 Interpersonal Safety Answer Date Record ed Do you feel physically and e motionally safe where you currently live? Yes 11/21/2024 Within the past 12 months, h ave you been hit, slapped, kicked or otherwise physically hurt by someone? No 11/21/2024 Within the past 12 months, h ave you been humiliated or emotionally abused in other ways by your partner or ex-partner? No 11/21/2024 Comments No Sex and Gender Information Value Date Recorded Sex Assigned at Female 02/16/2021 5:23 PM CDT Legal Sex Female 5:02 PM MERCHANDISE STOCKER Gender Identity Female 10/22/2019 10:44 AM MERCHANDISE STOCKER Sexual Orientation Straight 06/04/2019 11 :41 AM CDT documented as of this encounter Plan of Treatment Upcoming Encounters Date Type Department Care Team (Late st Contact Info) Description 12/26/2024 9:30 AM CDT Office [facility] Pain Management [place] [address] [place] [address] [address] [place] [address] Galina Lopez APRN CORK INSULATOR 1600 [facility] 101 [place] [address] documented as of this encounter Visit Diagnoses Not on filedocumented in this encounter Additional Health Concerns Assessment Noted Time PHQ-9 Depression Total Score: 8 08/23/19 25 12:02 PM MERCHANDISE STOCKER documented as of this encounter Care Teams Silk Washing Machine Operator Relationship Specialty Start Date End Date Mickey Mills MD [address] [place] [phone] PCP - General 07/13/23 Maxi Tate MD 420 [facility] 396 [place], [place] [address] Otolaryngology 10/31/16 Lela Zapata, SHAREE Specialty Bag Sewer ENT-Otolaryngology 01/18/19 Mini Frazier MD [address] [place] [address] Gastroenterology 08/05/19 Maxi Tate MD [address] [place] [address] 396 [place], [place] [address] Assigned Surgical Provider 06/08/20 documented as of this encounter
--- OUTSIDE RECORDS SUMMARY | 2024-11-29 17:11 | XMS_ITS | Encounter Summary ---
Author Organization [facility] Address [address] [place] [address]. [place] [address] Care Team Providers Care Ship Scaler Name Role Phone Wilber Mittal Primary Care Provider [phone] Maxi Tate MD Unavailable Lela Zapata RN Unavailable Unavailable Mini Frazier MD Unavailable [phone] Maxi Tate MD Unavailable [phone] Mickey [place] MD Primary Care Provider Encounter Details Date Type Department Care Team (Late st Contact Info) Description 02/01/2022 [facility] [place] [facility] [address] [place] [address] Maxi Tate MD [address] [place] [address] 396 [place] [address] Social History Tobacco Use Types [...] PM CDT Legal Sex Female 5:02 PM CHILD THERAPIST Gender Identity Female 10/22/2019 10:44 AM CHILD THERAPIST Sexual Orientation Straight 06/04/2019 11 :41 AM CDT COVID-19 Exposure Response Date Recorded In the last 10 days, have yo u been in contact with someone who was confirmed or suspected to have Coronavirus/COVID-19? No / Unsure 01/20/2022 8:33 AM CDT documented as of this encounter Plan of Treatment Upcoming Encounters Date Type Department Care Team (Late st Contact Info) Description 12/26/2024 9:30 AM CDT Office Visit [facility] [place] [address] [place] [address] Galina Lopez APRN TIRE CLASSIFIER 1600 [facility] [address] [place] [address] documented as of this encounter Visit Diagnoses Not on filedocumented in this encounter Additional Health Concerns Assessment Noted Time PHQ-9 Depression Total Score: 6 08/02/20 19 10:51 AM CHILD THERAPIST documented as of this encounter Care Teams Ship Scaler Relationship Specialty Start Date End Date Wilber Mittal PCP - General 09/15/12 07/12/23 Mickey Mills MD [address] [place] [phone] PCP - General 07/13/23 Maxi Tate MD 420 [facility] 396 [place], [place] [phone] Otolaryngology 10/31/16 Lela Zapata, SHAREE Specialty Video Recorder Mechanic ENT-Otolaryngology 01/18/19 Mini Frazier MD [address] [place] [address] Gastroenterology 08/05/19 Maxi Tate MD [address] [place] [address] Assigned Surgical Provider 06/08/20 documented as of this encounter
--- OUTSIDE RECORDS SUMMARY | 2024-11-29 17:11 | XMS_ITS | Encounter Summary ---
Author Organization [facility] Address [address] [place] [address]. [place] [address] Care Team Providers Care Pit Manager Name Role Phone Wilber Mittal Primary Care Provider [phone] Maxi Tate MD Unavailable [phone] Lela Zapata RN Unavailable Unavailable Mini Frazier MD Unavailable [phone] Maxi Tate MD Unavailable [phone] Mickey Mills MD Primary Care Provider Encounter Details Date Type Department Care Team (Late st Contact Info) Description 06/08/2023 [facility] Medical Advice [facility] [address] 4th [place] [address] Maxi Tate MD [address] [place] [address] 396 [place] [address] Social History Tobacco Use Types Packs/Day Years Used Date Smoking Tobacco: Former Cigarettes 0.5 40 0 10/27/1972 - 10/27/2012 Smokeless Tobacco: Never Alcohol Use Standard Drinks/Week Comments Yes 0 (1 standard drink = 0.6 oz pur e alcohol) once a week PHQ-2 Answer Date Recorded PHQ-2 Score 2 12/05/2022 Adolescent Education Answer Date Record ed Getting School Help Needed Not on file 05/08 Comments No Sex and Gender Information Value Date Recorded Sex Assigned at Female 02/16/2021 5:23 PM CDT Legal Sex Female 5:02 PM LOGISTICS/SHIPPER Gender Identity Female 10/22/2019 10:44 AM LOGISTICS/SHIPPER Sexual Orientation Straight 06/04/2019 11 :41 AM CDT COVID-19 Exposure Response Date Recorded In the last 10 days, have yo u been in contact with someone who was confirmed or suspected to have Coronavirus/COVID-19? No / Unsure 05/26/2023 8:15 AM CDT documented as of this encounter Plan of Treatment Upcoming Encounters Date Type Department Care Team (Late st Contact Info) Description 12/26/2024 9:30 AM CDT Office Visit [facility] Pain Management [place] [address] [facility] [address] [place] [address] Galina Lopez APRN [employer]ATIONS MANAG[employer] 1600 [facility] [address] [place], [place] [phone] documented as of this encounter Visit Diagnoses Not on filedocumented in this encounter Additional Health Concerns Assessment Noted Time PHQ-9 Depression Total Score: 6 08/02/20 19 10:51 AM LOGISTICS/SHIPPER documented as of this encounter Care Teams Pit Manager Relationship Specialty Start Date End Date Wilber Mittal PCP - General 09/15/12 07/12/23 Mickey Mills MD [address] [place] [phone] PCP - General 07/13/23 Maxi Tate MD 420 [facility] 396 [place], [place] [address] Otolaryngology 10/31/16 Lela Zapata, SHAREE Specialty Panel Fitter ENT-Otolaryngology 01/18/19 Mini Frazier MD 909 [place], [place] [address] Gastroenterology 08/05/19 Maxi Tate MD 420 [facility] 396 [place], [place] [address] Assigned Surgical Provider 06/08/20 documented as of this encounter
--- OUTSIDE RECORDS SUMMARY | 2024-11-29 17:11 | XMS_ITS | Encounter Summary ---
Author Organization [facility] Address [address] [place] [address]. [place] [address] Care Team Providers Care Carpenter Helper Maintenance Name Role Phone Wilber Mittal Primary Care Provider [phone] Maxi Tate MD Unavailable [phone] Lela Zapata RN Unavailable Unavailable Mini Frazier MD Unavailable [phone] Maxi Tate MD Unavailable [phone] Mickey Mills MD Primary Care Provider Encounter Details Date Type Department Care Team (Late st Contact Info) Description 06/25/[address] [facility] Medical Advice [facility] [address] 4th [place] [address] Maxi Tate MD [address] [place] [address] Social History Tobacco Use Types Packs/Day Years Used Date Smoking Tobacco: Former Cigarettes 0.5 40 0 10/27/1972 - 10/27/2012 Smokeless Tobacco: Never Alcohol Use Standard Drinks/Week Comments Not Currently 0 (1 standard drink = 0.6 oz pur e alcohol) PHQ-2 Answer Date Recorded PHQ-2 Score 0 06/18/2021 Comments No Sex and Gender Information Value Date Recorded Sex Assigned at Female 02/16/2021 5:23 PM CDT Legal Sex Female 5:02 PM TRAIN DRIVER Gender Identity Female 10/22/2019 10:44 AM TRAIN DRIVER Sexual Orientation Straight 06/04/2019 11 :41 AM CDT COVID-19 Exposure Response Date Recorded In the last month, have you been in contact with someone who was confirmed or suspected to have Coronavirus / COVID-19? No / Unsure 06/18/2021 8:26 AM CDT documented as of this encounter Plan of Treatment Upcoming Encounters Date Type Department Care Team (Late st Contact Info) Description 12/26/2024 9:30 AM CDT Office Visit [facility] Pain Management [place] [address] [facility] [address] [place] [address] Galina Lopez APRN STERILIZER OPERATOR 1600 [facility] 101 [place] [address] documented as of this encounter Visit Diagnoses Not on filedocumented in this encounter Additional Health Concerns Assessment Noted Time PHQ-9 Depression Total Score: 6 08/02/20 19 10:51 AM TRAIN DRIVER documented as of this encounter Care Teams Carpenter Helper Maintenance Relationship Specialty Start Date End Date Wilber Mittal PCP - General 09/15/12 07/12/23 Mickey Mills MD [address] [place] [phone] PCP - General 07/13/23 Maxi Tate MD 420 [facility] 396 [place], [place] [phone] Otolaryngology 10/31/16 Lela Zapata, SHAREE Specialty Explosive Ordnance Specialist ENT-Otolaryngology 01/18/19 Mini Frazier MD [address] [place] [address] Gastroenterology 08/05/19 Maxi Tate MD [address] [place] [address] 396 [place], [place] [address] Assigned Surgical Provider 06/08/20 documented as of this encounter
--- OUTSIDE RECORDS SUMMARY | 2024-11-29 17:11 | XMS_ITS | Encounter Summary ---
Author Organization [facility] Address [address] [place] [address] Care Team Providers Care Cook Syrup Maker Name Role Phone Wilber Mittal Primary Care Provider Maxi Tate MD Unavailable [phone] Lela Zapata RN Unavailable Unavailable Mini Frazier MD Unavailable [phone] Maxi Tate MD Unavailable [phone] Mini Frazier MD Unavailable [phone] Mickey Mills MD Primary Care Provider Encounter Details Date Type Department Care Team (Late st Contact Info) Description 03/25/2021 [facility] [place] [facility] [address] 4th [place] [address] Maxi Tate MD [address] [place] [address] Social History Tobacco Use Types Packs/Day Years Used Date Smoking Tobacco: Former Cigarettes 0.5 40 0 10/27/1972 - 10/27/2012 Smokeless Tobacco: Never Alcohol Use Standard Drinks/Week Comments Not Currently 0 (1 standard drink = 0.6 oz pur e alcohol) PHQ-2 Answer Date Recorded PHQ-2 Score 0 02/19/2021 Comments No Sex and Gender Information Value Date Recorded Sex Assigned at Female 02/16/2021 5:23 PM CDT Legal Sex Female 5:02 PM POWERSAW SUPERVISOR Gender Identity Female 10/22/2019 10:44 AM POWERSAW SUPERVISOR Sexual Orientation Straight 06/04/2019 11 :41 AM CDT documented as of this encounter Plan of Treatment Upcoming Encounters Date Type Department Care Team (Late st Contact Info) Description 12/26/2024 9:30 AM CDT Office Visit [facility] Pain Management [place] [address] [place] [address] Galina Lopez APRN CIGARETTE MACHINES MECHANIC 1600 [facility] 101 [place] [address] documented as of this encounter Visit Diagnoses Not on filedocumented in this encounter Additional Health Concerns Assessment Noted Time PHQ-9 Depression Total Score: 6 08/02/20 10:51 AM POWERSAW SUPERVISOR documented as of this encounter Care Teams Cook Syrup Maker Relationship Specialty Start Date End Date Wilber Mittal PCP - General 09/15/12 07/12/23 Mickey Mills MD [address] [place] [phone] PCP - General 07/13/23 Maxi Tate MD [address] [place] [address] Otolaryngology 10/31/16 Lela Zapata, RN Specialty Hose Tester ENT-Otolaryngology 01/18/19 Mini Frazier MD [address] [place] [address] Gastroenterology 08/05/19 Maxi Tate MD 420 [facility] 396 [place] [address] Assigned Surgical Provider 06/08/20 Mini Frazier MD [address] [place] [phone] Assigned Gastroenterology Provider 06/08/20 04/06/21 documented as of this encounter
--- OUTSIDE RECORDS SUMMARY | 2024-11-29 17:11 | XMS_ITS | Encounter Summary ---
Author Organization [place] Address [address] [place] [address] Care Team Providers Care Emissions Testing Technician Name Role Phone Wilber Mittal Primary Care Provider [phone] Maxi Tate MD Unavailable Lela Zapata RN Unavailable Unavailable Mini Frazier MD Unavailable [phone] Maxi Tate MD Unavailable [phone] Mickey Mills MD Primary Care Provider Encounter Details Date Type Department Care Team (Late st Contact Info) Description 03/02/2022 [facility] [place] [address] 5th [place] [address] Maxi Tate MD [address] [place] [address] Social History Tobacco Use Types Packs/Day [...] PM CDT Legal Sex Female 5:02 PM SUBPOENA SERVER Gender Identity Female 10/22/2019 10:44 AM SUBPOENA SERVER Sexual Orientation Straight 06/04/2019 11 :41 AM [...] Description 12/26/2024 9:30 AM CDT Office Visit [facility] [place] [address] [place] [address] Galina Lopez APRN STOCKROOM SELECTOR 1600 [facility] 101 [place] [address] documented as of this encounter Visit Diagnoses Not on filedocumented in this encounter Additional Health Concerns Assessment Noted Time PHQ-9 Depression Total Score: 6 08/02/20 19 10:51 AM SUBPOENA SERVER documented as of this encounter Care Teams Emissions Testing Technician Relationship Specialty Start Date End Date Wilber Mittal PCP - General 09/15/12 07/12/23 Mickey Mills MD [address] [place] [phone] PCP - General 07/13/23 Maxi Tate MD 420 [facility] 396 [place], [place] [phone] Otolaryngology 10/31/16 Lela Zapata, SHAREE Specialty Fitness Plan Coordinator ENT-Otolaryngology 01/18/19 Mini Frazier MD [address] [place] [address] Gastroenterology 08/05/19 Maxi Tate MD [address] [place] [address] 396 [place], [place] [phone] Assigned Surgical Provider 06/08/20 documented as of this encounter
--- OUTSIDE RECORDS SUMMARY | 2024-11-29 17:11 | XMS_ITS | Encounter Summary ---
Author Organization [place] Address [address] [place] [address]. [place] [address] Care Team Providers Care Transmission Engineer Name Role Phone Maxi Tate MD Unavailable [phone] Lela Zapata RN Unavailable Unavailable Mini Frazier MD Unavailable [phone] Maxi Tate MD Unavailable [phone] Mickey Mills MD Primary Care Provider [phone] Encounter Details Date Type Department Care Team (Late st Contact Info) Description 07/13/2023 My[facility] Medical Advice [facility] [place] [facility] [address] 4th [place] [address] Denise Rascon Social History Tobacco Use Types Packs/Day Years [...] PM CDT Legal Sex Female 5:02 PM DRIER UNLOADER Gender Identity Female 10/22/2019 10:44 AM DRIER UNLOADER Sexual Orientation Straight 06/04/2019 11 :41 AM CDT documented as of this encounter Plan of Treatment Upcoming Encounters Date Type Department Care Team (Late st Contact Info) Description 12/26/2024 9:30 AM CDT Office Visit [facility] [place] [address] [place] [place] [address] Galina Lopez APRN SOLAR INSTALLATION CREW SUPERVISOR 1600 [facility] [place] 101 [place] [address] documented as of this encounter Visit Diagnoses Not on filedocumented in this encounter Additional Health Concerns Assessment Noted Time PHQ-9 Depression Total Score: 6 08/02/20 10:51 AM DRIER UNLOADER documented as of this encounter Care Teams Transmission Engineer Relationship Specialty Start Date End Date Mickey Mills MD [address] [place] [phone] PCP - General 07/13/23 Maxi Tate MD [address] [place] [address] Otolaryngology 10/31/16 Lela Zapata, RN Specialty Safety Manager ENT-Otolaryngology 01/18/19 Mini Frazier MD [address] [place] [address] Gastroenterology 08/05/19 Maxi Tate MD [address] [place] [address] Assigned Surgical Provider 06/08/20 documented as of this encounter
--- OUTSIDE RECORDS SUMMARY | 2024-11-29 17:11 | XMS_ITS | Encounter Summary ---
Author Organization [place] Address [address] [place] [address]. [place] [address] Care Team Providers Care Equipment Installation Professional Name Role Phone Maxi Tate MD Unavailable [phone] Lela Zapata RN Unavailable Unavailable Mini Frazier MD Unavailable [phone] Maxi Tate MD Unavailable [phone] Mickey Mills MD Primary Care Provider [phone] Encounter Details Date Type Department Care Team (Late st Contact Info) Description 02/01/2024 MyC Medical Advice [facility] [address] 4th [place] [address] Maxi Tate MD 420 [facility] 396 [place] [address] Social History Tobacco Use Types [...] CDT Legal Sex Female 5:02 PM SUPERVISOR LAUNDRY Gender Identity Female 10/22/2019 10:44 AM SUPERVISOR LAUNDRY Sexual Orientation Straight 06/04/2019 11 :41 AM CDT documented as of this encounter Plan of Treatment Upcoming Encounters Date Type Department Care Team (Late st Contact Info) Description 12/26/2024 9:30 AM CDT Office Visit [facility] [place] [address] [place] [address] Drive [address] [place] [address] Galina Lopez, ANGELA SCIENTIFIC INFORMATICS PROJECT LEADER 1600 [facility] [place] [address] [place] [address] documented as of this encounter Visit Diagnoses Not on filedocumented in this encounter Additional Health Concerns Assessment Noted Time PHQ-9 Depression Total Score: 15 024 2:52 PM SUPERVISOR LAUNDRY documented as of this encounter Care Teams Equipment Installation Professional Relationship Specialty Start Date End Date Mickey Mills MD [address] [place] [phone] PCP - General 07/13/23 Maxi Tate MD [address] [place] [address] Otolaryngology 10/31/16 Lela Zapata, SHAREE Specialty Joy Loader ENT-Otolaryngology 01/18/19 Mini Frazier MD 909 [place] [address] Gastroenterology 08/05/19 Maxi Tate MD [address] [address] Assigned Surgical Provider 06/08/20 documented as of this encounter
--- OUTSIDE RECORDS SUMMARY | 2024-11-29 17:11 | XMS_ITS | Encounter Summary ---
Author Organization [facility] Address [address] [place] [address]. [place] [address] Care Team Providers Care Final Inspector And Tester Name Role Phone Maxi Tate MD Unavailable [phone] Lela Zapata RN Unavailable Unavailable Mini Frazier MD Unavailable [phone] Maxi Tate MD Unavailable [phone] Mickey Mills MD Primary Care Provider [phone] Encounter Details Date Type Department Care Team (Latest Contact Info) Description 11/26/2024 Travel Social History Tobacco Use Types Packs/Day Years Used Date Smoking Tobacco: Former Cigarettes 0.5 40 0 10/27/1972 - 10/27/2012 Smokeless Tobacco: Never Alcohol Use Standard Drinks/Week Comments Yes 0 (1 standard drink = 0.6 oz pur e alcohol) once a week PHQ-2 Answer Date Recorded PHQ-2 Score 4 08/23/2024 Adolescent Education Answer Date Record ed Getting School Help Needed Not on file 05/08 Interpersonal Safety Answer Date Record ed Do [...] PM CDT Legal Sex Female 5:02 PM BAKER Gender Identity Female 10/22/2019 10:44 AM BAKER Sexual Orientation Straight 06/04/2019 11 :41 AM CDT documented as of this encounter Plan of Treatment Upcoming Encounters Date Type Department Care Team (Late st Contact Info) Description 12/26/2024 9:30 AM CDT Office Visit [facility] [place] [address] [place] [address] [address] [place] [address] Galina Lopez, ANGELA SCIENTIFIC AIDE 1600 [facility] 101 [place] [address] documented as of this encounter Visit Diagnoses Not on filedocumented in this encounter Additional Health Concerns Assessment Noted Time PHQ-9 Depression Total Score: 8 08/23/19 25 12:02 PM BAKER documented as of this encounter Care Teams Final Inspector And Tester Relationship Specialty Start Date End Date Mickey Mills MD [address] [place] [phone] PCP - General 07/13/23 Maxi Tate MD [address] [place] [address] Otolaryngology 10/31/16 Lela Zapata, RN Specialty Sheet Metal Worker Supervisor ENT-Otolaryngology 01/18/19 Mini Frazier MD [address] [place] [phone] Gastroenterology 08/05/19 Maxi Tate MD [address] [phone] Assigned Surgical Provider 06/08/20 documented as of this encounter
--- OUTSIDE RECORDS SUMMARY | 2024-11-29 17:11 | XMS_ITS | Encounter Summary ---
Author Organization [place] Address [address] [place] [address]. [place] [address] Care Team Providers Care Ski Patrol Officer Name Role Phone Maxi Tate MD Unavailable [phone] Lela Zapata RN Unavailable Unavailable Mini Frazier MD Unavailable [phone] Maxi Tate MD Unavailable [phone] Mickey Mills MD Primary Care Provider [phone] Encounter Details Date Type Department Care Team (Late st Contact Info) Description 09/07/2023 MyC Medical Advice [facility] [address] 4th [place] [address] Maxi Tate MD 420 [facility] 396 [place] [address] Social History Tobacco Use Types [...] PM CDT Legal Sex Female 5:02 PM CLINICAL DIRECTOR Gender Identity Female 10/22/2019 10:44 AM CLINICAL DIRECTOR Sexual Orientation Straight 06/04/2019 11 :41 AM CDT documented as of this encounter Plan of Treatment Upcoming Encounters Date Type Department Care Team (Late st Contact Info) Description 12/26/2024 9:30 AM CDT Office Visit [facility] [place] [address] [place] [address] Drive [address] [place] [address] Galina Lopez, ANGELA MEDICAL SALES REPRESENTATIVE 1600 [facility] [place] 101 [place] [address] documented as of this encounter Visit Diagnoses Not on filedocumented in this encounter Additional Health Concerns Assessment Noted Time PHQ-9 Depression Total Score: 6 08/02/20 10:51 AM CLINICAL DIRECTOR documented as of this encounter Care Teams Ski Patrol Officer Relationship Specialty Start Date End Date Mickey Mills MD [address] [place] [phone] PCP - General 07/13/23 Maxi Tate MD [address] [place] [address] Otolaryngology 10/31/16 Lela Zapata, SHAREE Specialty Enterprise Project Manager ENT-Otolaryngology 01/18/19 Mini Frazier MD 909 [place] [address] Gastroenterology 08/05/19 Maxi Tate MD [address] [address] Assigned Surgical Provider 06/08/20 documented as of this encounter
--- OUTSIDE RECORDS SUMMARY | 2024-11-29 17:11 | XMS_ITS | Encounter Summary ---
Author Organization [facility] Address [address] [place] [address]. [place] [address] Care Team Providers Care Real Estate Internship Name Role Phone Wilber Mittal Primary Care Provider [phone] Maxi Tate MD Unavailable Lela Zapata RN Unavailable Unavailable Mini Frazier MD Unavailable [phone] Maxi Tate MD Unavailable [phone] Mickey Mills MD Primary Care Provider [phone] Encounter Details Date Type Department Care Team (Late st Contact Info) Description 12/03/2021 [facility] [place] [facility] [address] 4th [place] [address] Maxi Tate MD [address] [place] [address] 396 [place] [address] Social History Tobacco Use Types [...] PM CDT Legal Sex Female 5:02 PM HYDRAULIC RUBBISH COMPACTOR MECHANIC Gender Identity Female 10/22/2019 10:44 AM HYDRAULIC RUBBISH COMPACTOR MECHANIC Sexual Orientation Straight 06/04/2019 11 :41 AM CDT documented as of this encounter Plan of Treatment Upcoming Encounters Date Type Department Care Team (Late st Contact Info) Description 12/26/2024 9:30 AM CDT Office Visit [facility] [place] [address] [facility] [address] [place] [address] Galina Lopez, ANGELA SHEET ROCK FINISHER 1600 [facility] [place] 101 [place], [place] [phone] documented as of this encounter Visit Diagnoses Not on filedocumented in this encounter Additional Health Concerns Assessment Noted Time PHQ-9 Depression Total Score: 6 08/02/20 10:51 AM HYDRAULIC RUBBISH COMPACTOR MECHANIC documented as of this encounter Care Teams Real Estate Internship Relationship Specialty Start Date End Date Wilber Mittal PCP - General 09/15/12 07/12/23 Mickey Mills MD [address] [place] [phone] PCP - General 07/13/23 Maxi Tate MD [address] [place] [address] 880715 Otolaryngology 10/31/16 Lela Zapata, RN Specialty Car Repossessor ENT-Otolaryngology 01/18/19 Mini Frazier MD [address] [place] [address] Gastroenterology 08/05/19 Maxi Tate MD [address] [place] [address] [place] [address] Assigned Surgical Provider 06/08/20 documented as of this encounter
--- OUTSIDE RECORDS SUMMARY | 2024-11-29 17:11 | XMS_ITS | Encounter Summary ---
Author Organization [place] Address [address] [place] [address]. [place] [address] Care Team Providers Care Marketing Designer Name Role Phone Maxi Tate MD Unavailable [phone] Lela Zapata RN Unavailable Unavailable Mini Frazier MD Unavailable [phone] Maxi Tate MD Unavailable [phone] Mickey Mills MD Primary Care Provider Encounter Details Date Type Department Care Team (Late st Contact Info) Description 02/09/2024 MyC Medical Advice [facility] OR [address] 5th [place] [address] Sinai Jefferson RN Social History Tobacco Use Types Packs/Day [...] PM CDT Legal Sex Female 5:02 PM MACHINE OILER Gender Identity Female 10/22/2019 10:44 AM MACHINE OILER Sexual Orientation Straight 06/04/2019 11 :41 AM CDT documented as of this encounter Plan of Treatment Upcoming Encounters Date Type Department Care Team (Late st Contact Info) Description 12/26/2024 9:30 AM CDT Office Visit [facility] [place] [address] [place] [address] [place] [address] Galina Lopez APRN PHOTOGRAPHIC RESTORER 1600 [facility] [place] 101 [place] [address] documented as of this encounter Visit Diagnoses Not on filedocumented in this encounter Additional Health Concerns Assessment Noted Time PHQ-9 Depression Total Score: 15 024 2:52 PM MACHINE OILER documented as of this encounter Care Teams Marketing Designer Relationship Specialty Start Date End Date Mickey Mills MD [address] [place] [phone] PCP - General 07/13/23 Maxi Tate MD [address] [place] [address] Otolaryngology 10/31/16 Lela Zapata, RN Specialty Learning And Development Specialist ENT-Otolaryngology 01/18/19 Mini Fraizer MD [address] [place] [address] Gastroenterology 08/05/19 Maxi Tate MD [address] [address] Assigned Surgical Provider 06/08/20 documented as of this encounter
--- OUTSIDE RECORDS SUMMARY | 2024-11-29 17:11 | XMS_ITS | Encounter Summary ---
Author Organization [place] Address [address] [place] [address]. [place] [address] Care Team Providers Care Central Office Worker Name Role Phone Maxi Tate MD Unavailable [phone] Lela Zapata RN Unavailable Unavailable Mini Frazier MD Unavailable [phone] Maxi Tate MD Unavailable [phone] Mickey Mills MD Primary Care Provider [phone] Encounter Details Date Type Department Care Team (Late st Contact Info) Description 02/02/2024 MyC Medical Advice [facility] [address] 4th [place] [address] Maxi Tate MD 420 [facility] 396 [place] [address] Social History Tobacco Use Types [...] PM CDT Legal Sex Female 5:02 PM BROADCAST TRANSMITTER OPERATOR Gender Identity Female 10/22/2019 10:44 AM BROADCAST TRANSMITTER OPERATOR Sexual Orientation Straight 06/04/2019 11 :41 AM CDT documented as of this encounter Plan of Treatment Upcoming Encounters Date Type Department Care Team (Late st Contact Info) Description 12/26/2024 9:30 AM CDT Office Visit [facility] [place] [address] [place] [address] Drive [address] [place] [address] Galina Lopez, ANGELA ORACLE REPORTS DEVELOPER 1600 [facility] [place] [address] [place] [address] documented as of this encounter Visit Diagnoses Not on filedocumented in this encounter Additional Health Concerns Assessment Noted Time PHQ-9 Depression Total Score: 15 024 2:52 PM BROADCAST TRANSMITTER OPERATOR documented as of this encounter Care Teams Central Office Worker Relationship Specialty Start Date End Date Mickey Mills MD [address] [place] [phone] PCP - General 07/13/23 Maxi Tate MD [address] [place] [address] Otolaryngology 10/31/16 Lela Zapata, SHAREE Specialty Renovator Machine Operator ENT-Otolaryngology 01/18/19 Mini Frazier MD 909 [place] [address] Gastroenterology 08/05/19 Maxi Tate MD [address] [address] Assigned Surgical Provider 06/08/20 documented as of this encounter
--- OUTSIDE RECORDS SUMMARY | 2024-11-29 17:11 | XMS_ITS | Encounter Summary ---
Author Organization [place] Address [address] [place] [address]. [place] [address] Care Team Providers Care Desktop Publisher Name Role Phone Maxi Tate MD Unavailable [phone] Lela Zapata RN Unavailable Unavailable Mini Frazier MD Unavailable [phone] Maxi Tate MD Unavailable [phone] Mickey Mills MD Primary Care Provider Encounter Details Date Type Department Care Team (Late st Contact Info) Description 12/31/2023 [facility] [place] [facility] [address] 4th [place] [address] Sharmin Hernandes Social History Tobacco [...] PM CDT Legal Sex Female 5:02 PM STAB SETTER AND DRILLER Gender Identity Female 10/22/2019 10:44 AM STAB SETTER AND DRILLER Sexual Orientation Straight 06/04/2019 11 :41 AM CDT documented as of this encounter Plan of Treatment Upcoming Encounters Date Type Department Care Team (Late st Contact Info) Description 12/26/2024 9:30 AM CDT Office Visit [facility] [place] [address] [place] [address] [place] [address] Gailna Lopez, ANGELA HAND ZIPPER TRIMMER 1600 [facility] [place] [place] [address] documented as of this encounter Visit Diagnoses Not on filedocumented in this encounter Additional Health Concerns Assessment Noted Time PHQ-9 Depression Total Score: 15 024 2:52 PM STAB SETTER AND DRILLER documented as of this encounter Care Teams Desktop Publisher Relationship Specialty Start Date End Date Mickey Mills MD [address] [place] [phone] PCP - General 07/13/23 Maxi Tate MD [address] [place] [address] Otolaryngology 10/31/16 Lela Zapata, RN Specialty Multimedia Teacher ENT-Otolaryngology 01/18/19 Mini Frazier MD [address] [place] [address] Gastroenterology 08/05/19 Maxi Tate MD [address] [address] Assigned Surgical Provider 06/08/20 documented as of this encounter
--- OUTSIDE RECORDS SUMMARY | 2024-11-29 17:11 | XMS_ITS | Encounter Summary ---
Author Organization [facility] Address [address] [place] [address] Care Team Providers Care Merchandise Flow Manager Name Role Phone Wilber Mittal Primary Care Provider Maxi Tate MD Unavailable [phone] Lela Zaapta RN Unavailable Unavailable Mini Frazier MD Unavailable Maxi Tate MD Unavailable [phone] Mickey Mills MD Primary Care Provider [phone] Encounter Details Date Type Department Care Team (Late st Contact Info) Description 01/24/2022 [facility] [place] [facility] [address] 4th [place] [address] Sandrine Leahy Social History Tobacco Use Types Packs/Day Years [...] PM CDT Legal Sex Female 5:02 PM LABORATORY TECHNICIAN Gender Identity Female 10/22/2019 10:44 AM LABORATORY TECHNICIAN Sexual Orientation Straight 06/04/2019 11 :41 AM [...] Office Visit [facility] [place] [address] [place] [address] Galina Lopez APRN ELECTRONICS TESTER 1600 [facility] [address] [place], [place] [phone] documented as of this encounter Visit Diagnoses Not on filedocumented in this encounter Additional Health Concerns Assessment Noted Time PHQ-9 Depression Total Score: 6 08/02/20 10:51 AM LABORATORY TECHNICIAN documented as of this encounter Care Teams Merchandise Flow Manager Relationship Specialty Start Date End Date Wilber Mittal PCP - General 09/15/12 07/12/23 Mickey Mills MD [address] [place] [phone] PCP - General 07/13/23 Maxi Tate MD [address] [place] [address] [phone] Otolaryngology 10/31/16 Lela Zapata, RN Specialty Online Publisher ENT-Otolaryngology 01/18/19 Mini Frazier MD [address] [place] [phone] Gastroenterology 08/05/19 Maxi Tate MD 420 [facility] 396 [place] [address] Assigned Surgical Provider 06/08/20 documented as of this encounter
--- OUTSIDE RECORDS SUMMARY | 2024-11-29 17:11 | XMS_ITS | Encounter Summary ---
Author Organization [facility] Address [address] [place] [address] Care Team Providers Care Ceramic Capacitor Processor Name Role Phone Maxi Tate MD Unavailable [phone] Lela Zapata RN Unavailable Unavailable Mini Frazier MD Unavailable [phone] Maxi Tate MD Unavailable [phone] Mickey Mills MD Primary Care Provider [phone] Encounter Details Date Type Department Care Team (Late st Contact Info) Description 11/29/2024 11:15 AM CDT Office Visit [facility] [address] 4th [place] [address] Maxi Tate MD [address] [place] [address] [address] [place] [address] Tongue cancer (H) (Primary Dx) Social History Tobacco Use Types [...] PM CDT Legal Sex Female 5:02 PM POT FLUXER Gender Identity Female 10/22/2019 10:44 AM POT FLUXER Sexual Orientation Straight 06/04/2019 11 :41 AM CDT documented as of this encounter Progress Notes * Maxi Tate MD - 11/29/2024 11:15 AM CDT Otolaryngology Clinic Name: Kelly Langley Age: [age] year old : 1955 11/29/2024 Chief Complaint: Follow up History of Present Illness: Kelly Langley is a 69 year old female with a history of tongue lesion who presents for follow up s/p excision of right tongue lesion on 11/21/24. Today, she reports that she is having some pain and that this is improved over last week but she is still having typical rib postoperative requirements for narcotics that she usually does Review of Systems: Pertinent items are noted in HPI or as in patient entered ROS below, remainder of complete ROS is negative. 11/26/2024 5:23 PM ENT ROS Constitutional Weight loss Neurology Dizzy spells Headache Psychology Frequently feeling depressed or sad Ears, Nose, Throat Trouble swallowing Hematologic Easy bruising Endocrine Heat or cold intolerance Other Problems with anesthesia in surgery Physical Exam: There were no vitals taken for this visit. PHYSICAL EXAMINATION: Constitutional: The patient was unaccompanied, well-groomed, and in no acute distress. Skin: Warm and pink. Neurologic: Alert and oriented x 3. CN's III-XII within normal limits. Voice normal. Psychiatric: The patient's affect was calm, cooperative, and appropriate. Respiratory: Breathing comfortably without stridor or exertion of accessory muscles. Eyes: Extraocular movement intact. Head: Normocephalic and atraumatic. No lesions or scars. Ears: Pinnae and tragus non-tender. EAC's and TM's N the appearance of the tongue tissue shows that of a healing area this is an anterior tongue tumorthe margins are clear it is microinvasive to the extent where it is 3 mm deep. No abnormal lymph tissue in the oropharynx. The pterygoid region is non-tender. Neck: Supple with normal laryngeal and tracheal landmarks. The parotid beds were without masses. Nopalpable thyroid. Lymphatic: There is no palpable lymphadenopathy in the neck. Pathology 11/21/24: A. TONGUE, TIP LESION, EXCISION: -INVASIVE KERATINIZING SQUAMOUS CELL CARCINOMA, moderately differentiated, 1.1 cm in greatest dimension. -Depth of invasion: 3 mm. 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 -Focal perineural invasion is present (<1 mm caliber nerve involved). -Margins are negative; closest uninvolved margin is right at 2 mm in this part (see other parts fortumor bed margins). -AJCC pathologic staging is pT1. -See synoptic report. B. SUPERIOR MARGIN, EXCISION: -Benign squamous mucosa with chronic inflammation, negative for high-grade dysplasia or malignancy. C. DEEP MARGIN, EXCISION: - Negative for malignancy. D. INFERIOR MARGIN, EXCISION: - Benign squamous mucosa, negative for dysplasia or malignancy. Assessment and Plan: No diagnosis found. Kelly Langley is a 69 year old female with a history of tongue lesion who presents for follow up s/p excision of right tongue lesion on 11/21/24. This was excised and it was felt to be invasive squamous cell carcinoma which is a change he had about 20 minutes of conversation about this today we know that we will have to get a PET scan for follow-up we will see how she is healing in 4 weeks there is a microscopic amount of perineural invasion in the minor nerve which is a little bit concerning but the margins on this patient are clean and she clearly has other lesions that we will likely progress again to at least proliferative verrucous leukoplakia versus verrucous carcinoma she understands that as well Follow-up: No follow-ups on file. Scribe Disclosure: I, Karla Diamond, am serving as a scribe to document services personally performed by Maxi Tate MD at this visit, based upon the provider's statements to me. All documentation has been reviewed by the aforementioned provider prior to being entered into the official medical record. documented in this encounter Plan of Treatment Upcoming Encounters Date Type Department Care Team (Late st Contact Info) Description 12/26/2024 9:30 AM CDT Office Visit [facility] Pain Management [place] [address] [place] [address] Galina Lopez APRN EMPLOYMENT PROGRAMS ANALYST 1600 [facility] [address] [place] [address] documented as of this encounter Visit Diagnoses Diagnosis Tongue cancer (H)- Primary Malignant neoplasm of tongue, unspecified site documented in this encounter Additional Health Concerns Assessment Noted Time PHQ-9 Depression Total Score: 8 08/23/19 25 12:02 PM POT FLUXER documented as of this encounter Care Teams Ceramic Capacitor Processor Relationship Specialty Start Date End Date Mickey Mills MD [address] [place] [phone] PCP - General 07/13/23 Maxi Tate MD [address] [place] [address]2015 Otolaryngology 10/31/16 Lela Zapata, RN Specialty Veterinarian Small Animal ENT-Otolaryngology 01/18/19 Mini Frazier MD [address] [place] [address] [phone] Gastroenterology 08/05/19 Maxi Tate MD [address] [place] [phone] Assigned Surgical Provider 06/08/20 documented as of this encounter
--- OUTSIDE RECORDS SUMMARY | 2024-11-29 17:11 | XMS_ITS | Encounter Summary ---
Author Organization [facility] Address [address] [place] [address]. [place] [address] Care Team Providers Care Planimeter Operator Name Role Phone Maxi Tate MD Unavailable [phone] Lela Zapata RN Unavailable Unavailable Mini Frazier MD Unavailable [phone] Maxi Tate MD Unavailable [phone] Mickey Mills MD Primary Care Provider Encounter Details Date Type Department Care Team (Latest Contact Info) Description 11/29/2024 Travel Social History Tobacco Use Types Packs/Day [...] PM CDT Legal Sex Female 5:02 PM ANESTHESIOLOGY TEACHER Gender Identity Female 10/22/2019 10:44 AM ANESTHESIOLOGY TEACHER Sexual Orientation Straight 06/04/2019 11 :41 AM CDT documented as of this encounter Plan of Treatment Upcoming Encounters Date Type Department Care Team (Late st Contact Info) Description 12/26/2024 9:30 AM CDT Office Visit [facility] Pain Management [place] [address] [place] [address] [address] [place] [address] Galina Lopez, ANGELA POSTAL CLERK 1600 [facility] 101 [place] [address] documented as of this encounter Visit Diagnoses Not on filedocumented in this encounter Additional Health Concerns Assessment Noted Time PHQ-9 Depression Total Score: 8 08/23/19 25 12:02 PM ANESTHESIOLOGY TEACHER documented as of this encounter Care Teams Planimeter Operator Relationship Specialty Start Date End Date Mickey Mills MD [address] [place] [phone] PCP - General 07/13/23 Maxi Tate MD [address] [place] [address] Otolaryngology 10/31/16 Lela Zapata, RN Specialty Electric Motor Controls Assembler ENT-Otolaryngology 01/18/19 Mini Frazier MD [address] [place] [address] [phone] Gastroenterology 08/05/19 Maxi Tate MD [address] [id number] Assigned Surgical Provider 06/08/20 documented as of this encounter
--- OUTSIDE RECORDS SUMMARY | 2024-11-29 17:11 | XMS_ITS ---
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 To be delivered at [facility] visit 07/10/2020 Hypothyroidism 09/01/2014 Temporomandibular joint syndrome 09/01/2014 History of colonic polyps 12/06/2012 Oral lesion 10/27/2012 Tongue lesion 10/27/2012 Current Oncology Plans No current plan information found. Past Plans No past plan information found. Radiation Treatments * No radiation treatments are documented for this patient in [facility]. Treatments may have been administered in another system. Treatment Summaries Malignant neoplasm of tongue (H)* Cancer Treatment Plan and Summary - Head/Neck Cancer 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 - Associated lichenoid mucositis and acute inflammation, ulceration and bacterial growth. - Tumor shows pushing borders into submucosa, but there is no invasion into glossal muscle. - Mild dysplasia extends to peripheral margin; margins are negative for high-grade dysplasia or malignancy. Radiation No Systemic No Ongoing Treatment No *The above summary reflects your cancer treatment as documented in our chart at the time you received this summary. If you had additional treatment at another care center we would advise you to obtain this information from that care center. Follow-up Care Plan Persistent symptoms or side effects at completion of treatment These symptoms may include, but not limited to: fatigue, numbness/tingling, psychosocial, menopause symptoms, pain, memory/concentrationissues. Additional provider notes, if applicable Head and Neck Cancer survivors may experience issues with the areas listed below. If you have any concerns in these or other areas, please speak with your providers or nurses to find out how you can get help with them. Anxiety or depression Dental issues Difficulty opening your mouth, chewing, or swallowing Dry mouth Emotional and mental health Fatigue Financial advice or assistance Hearing loss or ringing in your ears Insurance Lymphedema Memory or concentration loss Pain Physical functioning School or work Stiffness in neck or shoulders Stopping smoking Voice changes Weight changes A number of lifestyle/behaviors can affect your ongoing health, including the risk for the cancer coming back or developing another cancer. Discuss these recommendations with your provider or nurse: Alcohol use Diet Physical activity Tobacco use/cessation Weight management (loss/gain) Please call your cancer treatment team if you experience any of the following symptoms: New symptoms of hoarseness, problems swallowing, neck, mouth or throat pain that have not resolved within 2-4 weeks Swelling, lumps, bumps or masses anywhere in the head or neck Unexplained weight loss and/or fatigue Oral bleeding or coughing up of blood Red or white patch in the mouth Persistent nasal obstruction or congestion Frequent nose bleeds or unusual discharge from the nose New ear or jaw pain Ill?fitting dentures Coordinating Provider When/How Often Primary Care Provider Please continue to see your primary care provider for all general health carerecommended for a patient your age, including cancer screening tests. Any symptoms should be brought to the attention of your provider. Surgeon Year 1: every 1-3 months Year 2: every 2-6 months Year 3-5: every 4-8 month Speech-Sdc Teacher As directed by your speech-language therapy team or if you are having difficulty swallowing, unexplained weight loss, or recurrent lung infections. Lymphedema Specialist As clinically indicated. Nutrition As clinically indicated. Dentist Every 6 months if treatment included radiation. Other See eye doctor routinely. Smoking cessation and alcohol counseling is recommended for all patients. Cancer Surveillance or Other Recommended Related Tests Test What/When/How Often Imaging After treatment, a new baseline PET/CT will be ordered at 3 months post treatment. Further imaging will be based on signs and symptoms or as indicated by your cancer care team. CT chest as clinically indicated for patients with a smoking history (guidelines for lung cancer screening). TSH Every 6-12 months, if radiation included the neck region. Carotid US In 5-10 years if treatment included neck radiation, sooner if having symptoms. Please use the following website to make an appointment in the Cancer Survivor Program: www.[employer]. org/care/overarching-care/vmkdxs-pvip-dqdfm/support-services OR call Resources you may be interested in: [place] [employer] www.cancer.org [place] Society of Clinical Oncology www.asco.org/practice-guidelines/resources-patients National Cancer [employer] www.cancer.gov [employer] www.livestrong.org [facility] www.2NDNATUREth.org/care/overarching-care/cnxaub-dtdm-jdmfj/support-services www.cancer.net [place] [employer] for Cancer Research www.aicr.org This Survivorship Care Plan is a cancer treatment summary and follow up plan and is provided to youto keep with your health care records and to share with your primary care provider or any of your other providers.
--- OUTSIDE RECORDS SUMMARY | 2024-11-29 17:11 | XMS_ITS | Encounter Summary ---
Author Organization [facility] Address [address] [place] [address]. [place] [address] Care Team Providers Care Remote Advisor Name Role Phone Maxi Tate MD Unavailable [phone] Lela Zapata RN Unavailable Unavailable Mini Frazier MD Unavailable [phone] Maxi Tate MD Unavailable [phone] Mickey Mills MD Primary Care Provider [phone] Encounter Details Date Type Department Care Team (Late st Contact Info) Description 09/09/2023 [facility] Medical Advice [facility] OR [address] 5th [place] [address] Sadia Reynaga RN Social History Tobacco Use Types Packs/Day [...] PM CDT Legal Sex Female 5:02 PM CONSTRUCTION SALES MANAGER Gender Identity Female 10/22/2019 10:44 AM CONSTRUCTION SALES MANAGER Sexual Orientation Straight 06/04/2019 11 :41 AM CDT documented as of this encounter Plan of Treatment Upcoming Encounters Date Type Department Care Team (Late st Contact Info) Description 12/26/2024 9:30 AM CDT Office Visit [facility] Pain Management [place] [address] [place] [address] Galina Lopez, ANGELA SPECIAL AGENT [employer] INSURANCE [address] [facility] [address] [place] [address] documented as of this encounter Visit Diagnoses Not on filedocumented in this encounter Additional Health Concerns Assessment Noted Time PHQ-9 Depression Total Score: 6 08/02/20 10:51 AM CONSTRUCTION SALES MANAGER documented as of this encounter Care Teams Remote Advisor Relationship Specialty Start Date End Date Mickey Mills MD [address] [place] [phone] PCP - General 07/13/23 Maxi Tate MD [address] [place] [address] Otolaryngology 10/31/16 Lela Zapata, RN Specialty Plate Finisher ENT-Otolaryngology 01/18/19 Mini Frazier MD [address] [place] [address] Gastroenterology 08/05/19 Maxi Tate MD [address] [address] Assigned Surgical Provider 06/08/20 documented as of this encounter
--- OUTSIDE RECORDS SUMMARY | 2024-11-29 17:11 | XMS_ITS | Encounter Summary ---
Author Organization [facility] Address [address] [place] [address]. [place] [address] Care Team Providers Care Income Tax Analyst Name Role Phone Wilber Mittal Primary Care Provider [phone] Maxi Tate MD Unavailable Lela Zapata RN Unavailable Unavailable Mini Frazier MD Unavailable [phone] Maxi Tate MD Unavailable [phone] Mickey Mills MD Primary Care Provider Encounter Details Date Type Department Care Team (Late st Contact Info) Description 10/29/2021 [facility] Medical Advice [facility] Ear Nose and Throat Clinic [address] 4th [place] [address] Maxi Tate MD [address] [place] [address] 396 [place] [address] Social History Tobacco Use Types [...] PM CDT Legal Sex Female 5:02 PM YIELD IMPROVEMENT ENGINEER Gender Identity Female 10/22/2019 10:44 AM YIELD IMPROVEMENT ENGINEER Sexual Orientation Straight 06/04/2019 11 :41 AM CDT documented as of this encounter Plan of Treatment Upcoming Encounters Date Type Department Care Team (Late st Contact Info) Description 12/26/2024 9:30 AM CDT Office Visit [facility] Pain Management [place] [address] [facility] [address] [place] [address] Galina Lopez, ANGELA BILLING ADMINISTRATOR 1600 [facility] [address] [place], [place] [phone] documented as of this encounter Visit Diagnoses Not on filedocumented in this encounter Additional Health Concerns Assessment Noted Time PHQ-9 Depression Total Score: 6 08/02/20 10:51 AM YIELD IMPROVEMENT ENGINEER documented as of this encounter Care Teams Income Tax Analyst Relationship Specialty Start Date End Date Wilber Mittal PCP - General 09/15/12 07/12/23 Mickey Mills MD [address] [place] [phone] PCP - General 07/13/23 Maxi Tate MD [address] [place] [address] [phone] Otolaryngology 10/31/16 Lela Zapata, RN Specialty Teacher Vocational Training ENT-Otolaryngology 01/18/19 Mini Frazier MD [address] [place] [address] Gastroenterology 08/05/19 Maxi Tate MD [address] [place] [address] [place] [address] Assigned Surgical Provider 06/08/20 documented as of this encounter
--- OUTSIDE RECORDS SUMMARY | 2024-11-29 17:11 | XMS_ITS | Encounter Summary ---
Author Organization [facility] Address [address] [place] [address]. [place] [address] Care Team Providers Care Vertical Mill Operator Name Role Phone Wilber Mittal Primary Care Provider [phone] Maxi Tate MD Unavailable Lela Zapata RN Unavailable Unavailable Mini Frazier MD Unavailable [phone] Maxi Tate MD Unavailable [phone] Mickey Mills MD Primary Care Provider [phone] Encounter Details Date Type Department Care Team (Late st Contact Info) Description 11/03/2021 [facility] Medical Advice [facility] [address] 4th [place] [address] Maxi Tate MD [address] [place] [address] 396 [place] [address] Social History Tobacco Use Types [...] PM CDT Legal Sex Female 5:02 PM SHARED SERVICES MANAGER Gender Identity Female 10/22/2019 10:44 AM SHARED SERVICES MANAGER Sexual Orientation Straight 06/04/2019 11 :41 AM CDT documented as of this encounter Miscellaneous Notes * Telephone Encounter - Nicolette Rinaldi - 11/04/2021 12:26 PM CDT Spoke with patient regarding scheduling a Return in about 5 weeks (around 12/03/2021).-In-Person with . Scheduled patient accordingly and patient will see appointment in [facility].-Per Patient documented in this encounter Plan of Treatment Upcoming Encounters Date Type Department Care Team (Late st Contact Info) Description 12/26/2024 9:30 AM CDT Office Visit [facility] Pain Management [place] [phone] [place] [address] [address] [place], [place] [phone] Galina Lopez APRN RIBBON LAPPER TENDER [address] [facility] [address] [place] [address] documented as of this encounter Visit Diagnoses Not on filedocumented in this encounter Additional Health Concerns Assessment Noted Time PHQ-9 Depression Total Score: 6 08/02/20 19 10:51 AM SHARED SERVICES MANAGER documented as of this encounter Care Teams Vertical Mill Operator Relationship Specialty Start Date End Date Wilber Mittal PCP - General 09/15/12 07/12/23 Mickey Mills MD [address] [place] [phone] PCP - General 07/13/23 Maxi Tate MD 420 [facility] 396 [place], [place] [phone] Otolaryngology 10/31/16 Lela Zapata, RN Specialty Case Management Associate ENT-Otolaryngology 01/18/19 Mini Frazier MD [address] [place] [address] [phone] Gastroenterology 08/05/19 Maxi Tate MD [address] [place] [address] [phone] Assigned Surgical Provider 06/08/20 documented as of this encounter
--- OUTSIDE RECORDS SUMMARY | 2024-11-29 17:11 | XMS_ITS | Encounter Summary ---
Author Organization [facility] Address [address] [place] [address]. [place] [address] Care Team Providers Care Worm Packer Name Role Phone Wilber Mittal Primary Care Provider [phone] Maxi Tate MD Unavailable [phone] Lela Zapata RN Unavailable Unavailable Mini Frazier MD Unavailable [phone] Maxi Tate MD Unavailable [phone] Mickey Mills MD Primary Care Provider Encounter Details Date Type Department Care Team (Late st Contact Info) Description 12/14/[address] [facility] Medical Advice [facility] Nose and Throat Clinic [address] 4th [place] [address] Maxi Tate MD [address] [place] [address] 396 [place] [address] Social History Tobacco Use Types [...] PM CDT Legal Sex Female 5:02 PM MOTOR VEHICLE ESCORT DRIVER Gender Identity Female 10/22/2019 10:44 AM MOTOR VEHICLE ESCORT DRIVER Sexual Orientation Straight 06/04/2019 11 :41 AM CDT COVID-19 Exposure Response Date Recorded In the last 10 days, have yo u been in contact with someone who was confirmed or suspected to have Coronavirus/COVID-19? No / Unsure 12/10/2021 1:04 PM CDT documented as of this encounter Plan of Treatment Upcoming Encounters Date Type Department Care Team (Late st Contact Info) Description 12/26/2024 9:30 AM CDT Office Visit [facility] Pain Management [place] [address] [place] [address] Galina Lopez APRN PADDING GLUER 1600 [facility] [address] [place] [address] documented as of this encounter Visit Diagnoses Not on filedocumented in this encounter Additional Health Concerns Assessment Noted Time PHQ-9 Depression Total Score: 6 08/02/20 19 10:51 AM MOTOR VEHICLE ESCORT DRIVER documented as of this encounter Care Teams Worm Packer Relationship Specialty Start Date End Date Wilber Mittal PCP - General 09/15/12 07/12/23 Mickey Mills MD [address] [place] [phone] PCP - General 07/13/23 Maxi Tate MD 420 [facility] 396 [place], [place] [phone] Otolaryngology 10/31/16 Lela Zapata, SHAREE Specialty Avp ENT-Otolaryngology 01/18/19 Mini Frazier MD [address] [place] [address] Gastroenterology 08/05/19 Maxi Tate MD [address] [place] [address] [phone] Assigned Surgical Provider 06/08/20 documented as of this encounter
--- OUTSIDE RECORDS SUMMARY | 2024-11-29 17:11 | XMS_ITS | Encounter Summary ---
Author Organization [place] Address [address] [place] [address]. [place] [address] Care Team Providers Care Cream Buyer Name Role Phone Wilber Mittal Primary Care Provider [phone] Maxi Tate MD Unavailable [phone] Lela Zapata RN Unavailable Unavailable Mini Frazier MD Unavailable [phone] Maxi Tate MD Unavailable [phone] Mickey Mills MD Primary Care Provider Encounter Details Date Type Department Care Team (Late st Contact Info) Description 09/20/2021 [facility] [place] [facility] [facility] [address] 4th [place] [address] Maxi Tate MD [address] [place] [address] [address] [place] [address] Social History Tobacco Use Types [...] PM CDT Legal Sex Female 5:02 PM MEDICAL SCHEDULER Gender Identity Female 10/22/2019 10:44 AM MEDICAL SCHEDULER Sexual Orientation Straight 06/04/2019 11 :41 AM CDT COVID-19 Exposure Response Date Recorded In the last month, have you been in contact with someone who was confirmed or suspected to have Coronavirus / COVID-19? No / Unsure 09/17/2021 9:14 AM MEDICAL SCHEDULER documented as of this encounter Plan of Treatment Upcoming Encounters Date Type Department Care Team (Late st Contact Info) Description 12/26/2024 9:30 AM CDT Office Visit [facility] [place] [address] [place] [address] [place] [address] Galina Lopez APRN POTTERY MACHINE OPERATOR 1600 [facility] 101 [place] [address] documented as of this encounter Visit Diagnoses Not on filedocumented in this encounter Additional Health Concerns Assessment Noted Time PHQ-9 Depression Total Score: 6 08/02/20 19 10:51 AM MEDICAL SCHEDULER documented as of this encounter Care Teams Cream Buyer Relationship Specialty Start Date End Date Wilber Mittal PCP - General 09/15/12 07/12/23 Mickey Mills MD [address] [place] [phone] PCP - General 07/13/23 Maxi Tate MD 420 [facility] 396 [place], [place] [phone] Otolaryngology 10/31/16 Lela Zapata, SHAREE Specialty Construction Person ENT-Otolaryngology 01/18/19 Mini Frazier MD [address] [place] [address] Gastroenterology 08/05/19 Maxi Tate MD [address] [place] [address] [address] [place], [place] [address] Assigned Surgical Provider 06/08/20 documented as of this encounter
--- OUTSIDE RECORDS SUMMARY | 2024-11-29 17:11 | XMS_ITS | Encounter Summary ---
Author Organization [place] Address [address] [place] [address]. [place] [address] Care Team Providers Care Product Representative Name Role Phone Maxi Tate MD Unavailable [phone] Lela Zapata RN Unavailable Unavailable Mini Frazier MD Unavailable [phone] Maxi Tate MD Unavailable [phone] Mickey Mills MD Primary Care Provider [phone] Encounter Details Date Type Department Care Team (Late st Contact Info) Description 11/12/2023 [facility] [address] 4th [place] [address] Maxi Tate MD 420 [facility] 396 [place] [address] Social History Tobacco Use Types [...] PM CDT Legal Sex Female 5:02 PM MEASURING MACHINE OPERATOR Gender Identity Female 10/22/2019 10:44 AM MEASURING MACHINE OPERATOR Sexual Orientation Straight 06/04/2019 11 :41 AM CDT documented as of this encounter Plan of Treatment Upcoming Encounters Date Type Department Care Team (Late st Contact Info) Description 12/26/2024 9:30 AM CDT Office Visit [facility] [place] [address] [place] [address] Drive [address] [place] [address] Galina Lopez, ANGELA BUS PERSON 1600 [facility] 101 [place] [address] documented as of this encounter Visit Diagnoses Not on filedocumented in this encounter Additional Health Concerns Assessment Noted Time PHQ-9 Depression Total Score: 15 024 2:52 PM MEASURING MACHINE OPERATOR documented as of this encounter Care Teams Product Representative Relationship Specialty Start Date End Date Mickey Mills MD [address] [place] [phone] PCP - General 07/13/23 Maxi Tate MD [address] [place] [address] Otolaryngology 10/31/16 Lela Zapata, SHAREE Specialty Electronic Components Assembler ENT-Otolaryngology 01/18/19 Mini Frazier MD [address] [place] [address] Gastroenterology 08/05/19 Maxi Tate MD [address] [address] Assigned Surgical Provider 06/08/20 documented as of this encounter
--- OUTSIDE RECORDS SUMMARY | 2024-11-29 17:11 | XMS_ITS | Encounter Summary ---
Author Organization [place] Address [address] [place] [address]. [place] [address] Care Team Providers Care Automatic Pattern Edger Name Role Phone Maxi Tate MD Unavailable [phone] Lela Zapata RN Unavailable Unavailable Mini Frazier MD Unavailable [phone] Maxi Tate MD Unavailable [phone] Mickey Mills MD Primary Care Provider [phone] Encounter Details Date Type Department Care Team (Late st Contact Info) Description 02/19/[address] [facility] [address] 4th [place] [address] Maxi Tate MD 420 [facility] 396 [place] [address] Social History Tobacco Use Types [...] PM CDT Legal Sex Female 5:02 PM REIMBURSEMENT COORDINATOR Gender Identity Female 10/22/2019 10:44 AM REIMBURSEMENT COORDINATOR Sexual Orientation Straight 06/04/2019 11 :41 AM CDT documented as of this encounter Plan of Treatment Upcoming Encounters Date Type Department Care Team (Late st Contact Info) Description 12/26/2024 9:30 AM CDT Office Visit [facility] [place] [address] [place] [address] Drive [address] [place] [address] Galina Lopez, ANGELA RN STAFFING 1600 [facility] [address] [place] [address] documented as of this encounter Visit Diagnoses Not on filedocumented in this encounter Additional Health Concerns Assessment Noted Time PHQ-9 Depression Total Score: 15 024 2:52 PM REIMBURSEMENT COORDINATOR documented as of this encounter Care Teams Automatic Pattern Edger Relationship Specialty Start Date End Date Mickey Mills MD [address] [place] [phone] PCP - General 07/13/23 Maxi Tate MD [address] [place] [address] Otolaryngology 10/31/16 Lela Zapata, SHAREE Specialty Activities Director Scouting ENT-Otolaryngology 01/18/19 Mini Frazier MD 909 [place] [address] Gastroenterology 08/05/19 Maxi Tate MD [address] [address] Assigned Surgical Provider 06/08/20 documented as of this encounter
--- OUTSIDE RECORDS SUMMARY | 2024-11-29 17:11 | XMS_ITS | Encounter Summary ---
Author Organization [place] Address [address] [place] [address]. [place] [address] Care Team Providers Care Household Appliance Assembler Name Role Phone Maxi Tate MD Unavailable [phone] Lela Zapata RN Unavailable Unavailable Mini Frazier MD Unavailable [phone] Maxi Tate MD Unavailable [phone] Mickey Mills MD Primary Care Provider [phone] Encounter Details Date Type Department Care Team (Late st Contact Info) Description 10/20/2023 [facility] Medical Advice [facility] [address] 4th [place] [address] Maxi Tate MD 420 [facility] 396 [place] [address] Social History Tobacco Use Types [...] PM CDT Legal Sex Female 5:02 PM GREASE PACKER Gender Identity Female 10/22/2019 10:44 AM GREASE PACKER Sexual Orientation Straight 06/04/2019 11 :41 AM CDT documented as of this encounter Plan of Treatment Upcoming Encounters Date Type Department Care Team (Late st Contact Info) Description 12/26/2024 9:30 AM CDT Office Visit [facility] [place] [address] [place] [address] Drive [address] [place] [address] Galina Lopez, ANGELA MOTION PICTURE SET GRIP 1600 [facility] [place] [address] [place] [address] documented as of this encounter Visit Diagnoses Not on filedocumented in this encounter Additional Health Concerns Assessment Noted Time PHQ-9 Depression Total Score: 15 024 2:52 PM GREASE PACKER documented as of this encounter Care Teams Household Appliance Assembler Relationship Specialty Start Date End Date Mickey Mills MD [address] [place] [phone] PCP - General 07/13/23 Maxi Tate MD [address] [place] [address] Otolaryngology 10/31/16 Lela Zapata, SHAREE Specialty Bundle Clerk ENT-Otolaryngology 01/18/19 Mini Frazier MD 909 [place] [address] Gastroenterology 08/05/19 Maxi Tate MD [address] [address] Assigned Surgical Provider 06/08/20 documented as of this encounter
--- OUTSIDE RECORDS SUMMARY | 2024-11-29 17:11 | XMS_ITS | Encounter Summary ---
Author Organization [place] Address [address] [place] [address] Care Team Providers Care Chart Writer Name Role Phone Wilber Mittal Primary Care Provider Maxi Tate MD Unavailable Lela Zapata RN Unavailable Unavailable Mini Frazier MD Unavailable [phone] Maxi Tate MD Unavailable [phone] Mickey Mills MD Primary Care Provider Encounter Details Date Type Department Care Team (Late st Contact Info) Description 03/02/2022 [facility] [place] [facility] [place] [id number] [facility] 5th [place] [address] Maxi Tate MD [address] [place] [address] Social History Tobacco Use Types Packs/Day [...] PM CDT Legal Sex Female 5:02 PM DIRECTOR OF STRATEGIC INITIATIVES Gender Identity Female 10/22/2019 10:44 AM DIRECTOR OF STRATEGIC INITIATIVES Sexual Orientation Straight 06/04/2019 11 :41 AM [...] Visit [facility] [place] [address] [place] [address] [place] [address] Galina Lopez APRN COSMETOLOGY INSTRUCTOR 1600 [facility] 101 [place] [address] documented as of this encounter Visit Diagnoses Not on filedocumented in this encounter Additional Health Concerns Assessment Noted Time PHQ-9 Depression Total Score: 6 08/02/20 19 10:51 AM DIRECTOR OF STRATEGIC INITIATIVES documented as of this encounter Care Teams Chart Writer Relationship Specialty Start Date End Date Wilber Mittal PCP - General 09/15/12 07/12/23 Mickey Mills MD [address] [place] [phone] PCP - General 07/13/23 Maxi Tate MD 420 [facility] 396 [place], [place] [phone] Otolaryngology 10/31/16 Lela Zapata, SHAREE Specialty Gluing Machine Offbearer ENT-Otolaryngology 01/18/19 Mini Frazier MD [address] [place] [address] Gastroenterology 08/05/19 Maxi Tate MD [address] [place] [address] 396 [place], [place] [address] Assigned Surgical Provider 06/08/20 documented as of this encounter
--- OUTSIDE RECORDS SUMMARY | 2024-11-29 17:12 | XMS_ITS | Encounter Summary ---
Author Organization [place] Address [address] [place] [address]. [place] [address] Care Team Providers Care Slitter Operator Name Role Phone Maxi Tate MD Unavailable [phone] Lela Zapata RN Unavailable Unavailable Mini Frazier MD Unavailable [phone] Maxi Tate MD Unavailable [phone] Mickey Mills MD Primary Care Provider Encounter Details Date Type Department Care Team (Late st Contact Info) Description 11/09/2024 [facility] Medical Advice [facility] [address] 4th [place] [address] Maxi Tate MD 420 [facility] 396 [place] [address] Social History Tobacco Use Types [...] PM CDT Legal Sex Female 5:02 PM 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 Gender Identity Female 10/22/2019 10:44 AM TECHNICAL MARKETING ENGINEER Sexual Orientation Straight 06/04/2019 11 :41 AM CDT documented as of this encounter Plan of Treatment Upcoming Encounters Date Type Department Care Team (Late st Contact Info) Description 12/26/2024 9:30 AM CDT Office Visit [facility] [place] [address] [place] [address] [address] [place] [address] Galina Lopez APRN LENDING CONSULTANT 1600 [facility] 101 [place] [address] documented as of this encounter Visit Diagnoses Not on filedocumented in this encounter Additional Health Concerns Assessment Noted Time PHQ-9 Depression Total Score: 8 08/23/19 25 12:02 PM TECHNICAL MARKETING ENGINEER documented as of this encounter Care Teams Slitter Operator Relationship Specialty Start Date End Date Mickey Mills MD [address] [place] [phone] PCP - General 07/13/23 Maxi Tate MD 420 [facility] 396 [place], [place] [address] Otolaryngology 10/31/16 Lela Zapata, SHAREE Specialty Handbag Frames Inspector ENT-Otolaryngology 01/18/19 Mini Frazier MD [address] [place] [address] Gastroenterology 08/05/19 Maxi Tate MD [address] [place] [address] 396 [place], [place] [address] Assigned Surgical Provider 06/08/20 documented as of this encounter
--- OUTSIDE RECORDS SUMMARY | 2024-11-29 17:12 | XMS_ITS | Encounter Summary ---
Author Organization [place] Address [address] [place] [address] Care Team Providers Care Food Service Ambassador Name Role Phone Maxi Tate MD Unavailable [phone] Lela Zapata RN Unavailable Unavailable Mini Frazier MD Unavailable [phone] Maxi Tate MD Unavailable [phone] Mickey Mills MD Primary Care Provider Reason for Visit * Reason Onset Date Comments Appointment 11/02/2024 Encounter Details Date Type Department Care Team (Late st Contact Info) Description 11/02/2024 Telephone [facility] [address] [place] [address] Galina Lopez APRN BLAST FURNACE BLOWER 1600 [facility] 101 [place] [address] Appointment Social History Tobacco Use Types Packs/Day Years [...] PM CDT Legal Sex Female 5:02 PM FLOORING MECHANIC Gender Identity Female 10/22/2019 10:44 AM FLOORING MECHANIC Sexual Orientation Straight 06/04/2019 11 :41 AM CDT documented as of this encounter Miscellaneous Notes * Telephone Encounter - Mamie Johnston - 11/02/2024 1:36 PM CDT Called patient and informed patient. * Telephone Encounter - Janet York RN - 11/02/2024 1:11 PM CDT Per provider: initial apts cannot be virtual, only allows virtual once the patient is established and stable. * Telephone Encounter - Rk Bailey - 11/02/2024 12:47 PM CDT [facility] Phone Message May a detailed message be left on voicemail: yes Reason for Call: Other: Patient has an appointment scheduled for December with Galina Lopez in [place]. Patient states that she was informed that she would be able to have a virtual visit due to how far she lives from the [facility]. Reporting Analyst advised patient she would have to scheduled in person visit atthe closet location to the patient and send message over to see if a virtual appointment is possible. Patient would like a call back to confirm if she will need to come in clinic or will it be telehealth. Action Taken: Message routed to: Other: [place] [facility] Travel Screening: Not Applicable Date of Service: documented in this encounter Plan of Treatment Upcoming Encounters Date Type Department Care Team (Late st Contact Info) Description 12/26/2024 9:30 AM CDT Office Visit [facility] [place] [address] [place] [address] [place] [address] Galina Lopez APRN BLAST FURNACE BLOWER 1600 [facility] [address] [place] [address] documented as of this encounter Visit Diagnoses Not on filedocumented in this encounter Additional Health Concerns Assessment Noted Time PHQ-9 Depression Total Score: 8 08/23/19 25 12:02 PM FLOORING MECHANIC documented as of this encounter Care Teams Food Service Ambassador Relationship Specialty Start Date End Date Mickey Mills MD [address] [place] [phone] PCP - General 07/13/23 Maxi Tate MD [address] [place] [address] Otolaryngology 10/31/16 Lela Zapata, RN Specialty Biological Science Technician Fish ENT-Otolaryngology 01/18/19 Mini Frazier MD [address] [place] [address] Gastroenterology 08/05/19 Maxi Tate MD [address] [place] [address] Assigned Surgical Provider 06/08/20 documented as of this encounter
--- OUTSIDE RECORDS SUMMARY | 2024-11-29 17:12 | XMS_ITS | Clinical Summary ---
Author Organization [facility] Address [address] [place] [address] Care Team Providers Care Refrigerated Cargo Clerk Name Role Phone Maxi Ttae MD Unavailable [phone] Lela Zapata RN Unavailable Unavailable Mini Frazier MD Unavailable [phone] Maxi Tate MD Unavailable Mickey iMlls MD Primary Care Provider Allergies Active Allergy Reactions Criticality Noted Date Comments Ether Other (See Comments) High 07/02/2020 Shuts her bladder down as well as paralyzes her. Mold Other (See Comments) 05/17/2020 No Clinical Screening - See Comments Hay faver Pollen Extract 06/06/2019 Other reaction(s): Other (see comments) Scopolamine Nausea 11/21/2024 Increases nausea. Seasonal Allergies 06/06/2019 Warfarin Swelling High 02/09/2023 Tongue swells Medications LEVOTHYROXINE SODIUM PO Take 100 mcg by mouth daily. Active omeprazole (PRILOSEC) 20 MG CR capsule 06/04/20 16 Active montelukast (SINGULAIR) 10 MG tablet Take 10 mg by mouth 06/06/20 21 Active lisinopril (ZESTRIL) 10 MG tablet Take 20 mg by mouth daily. Active acetaminophen (TYLENOL) 325 MG tablet Take 325-650 mg by mouth every 6 hours as needed for mild pain Active ELIQUIS ANTICOAGULANT 5 MG tablet TAKE TWO TABLETS BY MOUTH TWICE A DAY FOR 7 DAYS THEN TAKE ONE TABLET BY MOUTH TWICE A DAY FOR 21 DAYS Active lidocaine, viscous, (XYLOCAINE) 2 % solutionIndicati ons:Tongue cancer (H) Swish and spit 15 mLs in mouth every 3 hours as needed for pain ; Max 8 doses/24 hour period. 300 mL 1 09/14/19 24 Active senna-docusate (SENOKOT-S/PERIC OLACE) 8.6-50 MG tabletIndication s:Tongue cancer (H) Take 1-2 tablets by mouth 2 times daily. 30 tablet 08/01/20 24 Active magic mouthwash (ENTER INGREDIENTS IN COMMENTS) suspensionIndica tions:Lesion of tongue Take 5 mL by mouth every 4 hours if needed for pain. 500 mL 3 08/11/20 24 Active lidocaine, viscous, (XYLOCAINE) 2 % solutionIndicati ons:Lesion of tongue Swish and spit 15 mLs in mouth every 4 hours as needed for pain. ; Max 8 doses/24 hour period. 500 mL 2 08/15/20 24 Active gabapentin (NEURONTIN) 100 MG capsuleIndicatio ns:Leukoplakia of oral cavity,Oral lesion Take 1 capsule (100 mg) by mouth 3 times daily. 90 capsule 5 08/30/19 25 Active Vitamin D, Cholecalciferol, 25 MCG (1000 UT) CAPSIndications: Oral lesion Take 25 mcg by mouth daily. 90 capsule 1 09/20/19 25 Active lidocaine, viscous, (XYLOCAINE) 2 % solutionIndicati ons:Lesion of tongue,Tongue cancer (H) Swish and spit 15 mLs in mouth every 3 hours as needed for pain. ; Max 8 doses/24 hour period. 500 mL 3 11/16/19 25 Active magic mouthwash (ENTER INGREDIENTS IN COMMENTS) suspensionIndica tions:Lesion of tongue,Tongue cancer (H) Take 5 mLs by mouth every 4 hours as needed (oral pain). 500 mL 2 11/16/19 25 Active oxyCODONE (ROXICODONE) 5 MG tabletIndication s:Lesion of tongue Take 1 tablet (5 mg) by mouth every 4 hours as needed for moderate to severe pain or moderate pain. 60 tablet 11/22/19 25 Active ondansetron (ZOFRAN ODT) 4 MG ODT tabIndications:L esion of tongue Take 1 tablet (4 mg) by mouth every 8 hours as needed for nausea. 30 tablet 11/22/19 25 Active magic mouthwash suspension (diphenhydrAMINE , lidocaine, aluminum-magnesi um & simethicone)Hyacinth cations:Lesion of tongue Swish and swallow 10 mLs in mouth every 6 hours as needed for mouth sores. 500 mL 3 11/22/19 25 Active chlorhexidine (PERIDEX) 0.12 % solutionIndicati ons:Lesion of tongue Swish and spit 15 mLs in mouth 2 times daily. 473 mL 1 11/22/19 25 Active acetaminophen (TYLENOL) 325 MG tabletIndication s:Lesion of tongue Take 2 tablets (650 mg) by mouth every 4 hours as needed for mild pain. 50 tablet 11/22/19 25 Active oxyCODONE (ROXICODONE) 5 MG tabletIndication s:Tongue cancer (H) Take 1 tablet (5 mg) by mouth every 3 hours as needed for pain. 60 tablet 11/30/19 25 025 Active ondansetron (ZOFRAN ODT) 4 MG ODT tabIndications:T ongue cancer (H) Take 1 tablet (4 mg) by mouth every 8 hours as needed for nausea. 4 tablet 08/01/20 24 025 Discontinued(St op at Discharge) oxyCODONE (ROXICODONE) 5 MG tabletIndication s:Tongue cancer (H) Take 1-2 tablets (5-10 mg) by mouth every 4 hours as needed for moderate to severe pain. 30 tablet 08/05/20 24 025 Discontinued(St op at Discharge) oxyCODONE (ROXICODONE) 5 MG tabletIndication s:Lesion of tongue Take 1 tablet (5 mg) by mouth every 6 hours as needed for pain. 45 tablet 08/12/20 24 025 Discontinued(St op at Discharge) clotrimazole (MYCELEX) 10 MG lozengeIndicatio ns:Claudette infection Allow 1 denisha to dissolve slowly in mouth 5 times daily for 14 days 70 lozenge 11/02/19 25 025 oxyCODONE (ROXICODONE) 5 MG tabletIndication s:Claudette infection Take 1 tablet (5 mg) by mouth every 6 hours as needed for pain. 12 tablet 11/02/19 25 025 Discontinued oxyCODONE (ROXICODONE) 5 MG tabletIndication s:Claudette infection Take 1 tablet (5 mg) by mouth every 6 hours as needed for pain. 12 tablet 11/02/19 25 025 Discontinued(Re order (No AVS)) oxyCODONE (ROXICODONE) 5 MG tabletIndication s:Claudette infection Take 1 tablet (5 mg) by mouth every 6 hours as needed for pain. 40 tablet 11/09/19 25 025 Discontinued(St op at Discharge) oxyCODONE (ROXICODONE) 5 MG tabletIndication s:Lesion of tongue Take 1 tablet (5 mg) by mouth every 3 hours as needed for pain. 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 To be delivered at [facility] visit 07/10/2020 Hypothyroidism 09/01/2014 Temporomandibular joint syndrome 09/01/2014 History of colonic polyps 12/06/2012 Oral lesion 10/27/2012 Tongue lesion 10/27/2012 Encounters Date Type Department Care Team Description 11/29/2024 11:15 AM CDT Office Visit [facility] [address] [place] [address] Maxi Tate MD Tongue cancer (H) (Primary Dx) 11/29/2024 Travel 11/26/2024 Travel 11/23/2024 MyC Medical Advice [facility] [address] [phone] Maxi Tate MD 11/21/2024 7:30 AM CDT - 11/21/2024 8:40 AM CDT Surgery [facility] [address] [place] [phone] Maxi Tate MD Excision of Right Tongue Lesion 11/21/2024 7:29 AM CDT Anesthesia Event [facility] [address] [place] [phone] Mando Martínez MD Moll, Vanessa, MD 11/21/2024 5:03 AM CDT - 11/21/2024 11:59 PM CDT Hospital Encounter [facility] Same Day [facility] [place] [address] [place] [phone] Maxi Tate MD Lesion of tongue (Primary Dx) Discharge Disposition: Home or Self Care 11/16/2024 MyC Medical Advice UR PREOP/PHASE II [address] [place] [phone] Sandrine Reddy RN 11/15/2024 Orders Only [facility] [address] [phone] Maxi Tate MD Lesion of tongue (Primary Dx) 11/15/2024 MyC Medical Advice [facility] [address] [phone] Sharmin Hernandes 11/15/2024 Telephone [facility] [address] [phone] Maxi Tate MD Call Back 11/14/2024 MyC Medical Advice [facility] [address] [phone] Maxi Tate MD 11/09/2024 MyC Medical Advice [facility] [address] [phone] Maxi Tate MD 11/05/2024 MyC Medical Advice [facility] [address] [phone] Maxi Tate MD 11/04/2024 MyC Medical Advice [facility] [address] [phone] Sharmin Hernandes 11/04/2024 Telephone [facility] [address] [phone] Maxi Tate MD Schedule Surgery (Excision of Right Tongue Lesion (Right)/) 11/02/2024 Telephone [facility] [address] [place] [phone] Galina Lopez APRN PATIENT SAFETY ATTENDANT Appointment 11/01/2024 10:15 AM CDT Office Visit [facility] [address] [phone] Maxi Tate MD Claudette infection (Primary Dx); Tongue cancer (H); Lesion of tongue 11/01/2024 Prep for Procedure [facility] [address] [phone] Maxi Tate MD Lesion of tongue (Primary Dx) 11/01/2024 Travel 10/31/2024 Travel 09/20/2024 1:00 PM AIRCRAFT STRUCTURE MECHANIC Office Visit [facility] [address] [phone] Maxi Tate MD Oral lesion (Primary Dx) 09/20/2024 Telephone [facility] [address] [place] [address] Maxi Tate MD Appointment 09/20/2024 Travel 09/17/2024 Travel from Last 3 Months Family History Medical History Relation Comments Cancer Cousin Emphasema - Dece ased Cancer Father 12/1961 Hypertension Father Other Cancer Father lung cancer Substance Abuse Father Alcoholic Asthma Maternal Grandmother all her lif e Dementia Mother Senile Dimentia Diabetes Mother - old a ge onset Heart Disease Mother Osteoporosis Mother Thyroid Disease Mother ,, , Cancer Other 1 emphazema - dece ased Breast Cancer Other 2 Cancer Other 2 Breast Cancer - Cancer Other 3 [place] Lung - d eceased Cancer Other 4 Colon Cancer - d eceased Colon Cancer Other 4 Cancer Other 5 Lung Cancer - de ceased Cancer Other 6 Emphasema - dece ased Cerebrovascular Disease Paternal Grandfather Cau se of Cancer Paternal Half-Sister Asthma Sister Cerebrovascular Disease Sister 1996 - ight stroke Hypertension Sister takes medication Relation Status Comments Cousin Father Maternal Grandmother Mother Other 1 Other 2 Other 3 Other 4 Other 5 Other 6 Paternal Grandfather Paternal Half-Sister Sister Social History Tobacco Use Types Packs/Day Years Used Date Smoking Tobacco: Former Cigarettes 0.5 40 0 10/27/1972 - 10/27/2012 Smokeless Tobacco: Never Tobacco Cessation:Counseling Given: Not Answered Alcohol Use Standard Drinks/Week Comments Yes 0 [...] PM CDT Legal Sex Female 5:02 PM AIRCRAFT STRUCTURE MECHANIC Gender Identity Female 10/22/2019 10:44 AM AIRCRAFT STRUCTURE MECHANIC Sexual Orientation Straight 06/04/2019 11 :41 AM CDT Last Filed Vital Signs Vital Sign Reading Time Taken Comments Blood Pressure 125/79 11/21/2024 1:15 PM CDT Pulse 71 11/21/2024 12:32 PM CDT Temperature 36.4 C (97.6 F) 11/21/2024 1:15 PM CDT Respiratory Rate 14 11/21/2024 1:15 PM CDT Oxygen Saturation 95% 11/21/2024 1:15 PM CDT Inhaled Oxygen Concentration - - Weight 72.4 kg (159 lb 9.8 oz) 11/21/2024 5:56 A M CDT Height 162.6 cm (5' 4) 11/21/2024 5:56 AM CDT Body Mass Index 27.4 11/21/2024 5:56 AM CDT Plan of Treatment Upcoming Encounters Date Type Department Care Team (Late st Contact Info) Description 12/26/2024 9:30 AM CDT Office Visit [facility] [address] [place] [address] Galina Lopez APRN PATIENT SAFETY ATTENDANT [address] [facility] [address] [place], [place] [phone] Health Maintenance Due Date Last Done Comments ADVANCE CARE PLANNING 1955 ANNUAL REVIEW OF HM ORDERS [address] CT COLONOGRAPHY 1954 FIT 1954 FLEX SIG 1954 TSH W/FREE T4 REFLEX 1954 sDNA (Cologuard) 1955 HEPATITIS C SCREENING 1972 LIPID 1994 Pneumococcal Vaccine: 50+ Years (2 of 2 - PCV) 06/12/2021 06/12/2020 DIABETES SCREENING 11/24/2021 11/24/2018, 0 04/02/2017, 04/02/2017, Additional history exists LUNG CANCER SCREENING 02/11/2024 02/10/2023 , 08/04/2018, 08/04/2018, Additional history exists COVID-19 Vaccine ( season) 2024 01/01/2022, 05/18/2021, 10/31/2020, Additional history exists INFLUENZA VACCINE (#1) 2024 , 07/11/2017, 06/04/2016, Additional history exists DTAP/TDAP/TD IMMUNIZATION (2 - Td or Tdap) 06/06/2024 06/06/2014 ZOSTER IMMUNIZATION (2 of 2) 11/12/2024 09/17/2024 MEDICARE ANNUAL WELLNESS VISIT 03/28/2025 03/28/2024, 08/26/2023, 01/07/2023, Additional history exists FALL RISK ASSESSMENT 11/01/2025 11/01/2024, 09/22/2023, 01/03/2020 MAMMO SCREENING 01/13/2026 01/14/2024, 12/17, 10/10/2022, Additional history exists RSV VACCINE (1 - 1-dose 75+ series) 2029 COLONOSCOPY 10/25/2029 10/26/2019, 11/23/2014 COLORECTAL CANCER SCREENING 10/25/2029 DEXA 10/02/2036 10/02/2021, 10/02/2021 PHQ-2 (once per calendar year) Completed 08/23/2024, 08/23/2024, 09/22/2023, Additional history exists HPV IMMUNIZATION Aged Out No longer e ligible based on patient's age to complete this topic MENINGITIS IMMUNIZATION Aged Out No l onger eligible based on patient's age to complete this topic Procedures Procedure Name Priority Date/Time Associated Diagnosis Comments SURGICAL PATHOLOGY EXAM Routine 11/21/2024 8:18 AM CDT ANE AIRWAY ETT PERFORMABLE Routine 11/21/2024 7:56 AM CDT EXCISION, LESION, MOUTH 11/21/2024 7:40 AM CDT Lesion of tongue Special Needs AA: hx - exreme PONV, hx - waking up before extubation, unable to move or communicate - per pt. COLONOSCOPY - HIM SCAN 10/26/2019 12:00 AM CDT COMPREHENSIVE METABOLIC PANEL Routine 11/24/2018 2:28 PM CDT MA SCREENING DIGITAL BILATERAL Routine 07/02/2016 CT CHEST W CONTRAST Routine 02/14/2014 2 :16 PM CDT Tongue cancer (H) from Last 3 Months or Most Recently Relevant to Health Maintenance Results * (ABNORMAL) Surgical Pathology Exam (11/21/2024 8:18 AM CDT) Case Report Surgical Pathology Report Case: [id number] Authorizing Provider: Maxi Tate MD Collected: 11/21/2024 08:18 AM Ordering Location: MAIN OR Received: 11/21/2024 09:37 AM Pathologist: Maryan Lamar MD Specimens: A) - Tongue, Tip of tongue lesion B) - Tongue, Superior margin C) - Tongue, Deep margin D) - Tongue, Inferior margin 11/28/2024 11:59 AM CDT [facility] Final Diagnosis A. TONGUE, TIP LESION, EXCISION: -INVASIVE KERATINIZING SQUAMOUS CELL CARCINOMA, moderately differentiated, 1.1 cm in greatest dimension. -Depth of invasion: 3 mm. 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 -Focal perineural invasion is present (<1 mm caliber nerve involved). -Margins are negative; closest uninvolved margin is right at 2 mm in this part (see other parts for tumor bed margins). -AJCC pathologic staging is pT1. -See synoptic report. B. SUPERIOR MARGIN, EXCISION: -Benign squamous mucosa with chronic inflammation, negative for high-grade dysplasia or malignancy. C. DEEP MARGIN, EXCISION: - Negative for malignancy. D. INFERIOR MARGIN, EXCISION: - Benign squamous mucosa, negative for dysplasia or malignancy. 11/28/2024 11:59 AM CDT [facility] Synoptic Checklist ORAL CAVITY ORAL CAVITY - All Specimens 8th Edition - Protocol posted: 02/04/2023 SPECIMEN Procedure: Excision TUMOR Tumor Focality: Unifocal Tumor Site: Oral cavity Tumor Subsite: Anterior two-thirds of tongue: tip of tongue Tumor Laterality: Midline Tumor Size: Greatest Dimension (Centimeters): 1.1 cm Histologic Type: : Squamous cell carcinoma, conventional (keratinizing) Histologic Grade: G2, moderately differentiated Tumor Depth of Invasion (DOI): 3 mm Lymphatic and / or Vascular Invasion: Not identified Perineural Invasion: Present Extent / Type of Perineural Invasion: Intratumoral Diameter of Involved Nerve (Millimeters): 1 mm Worst Pattern of Invasion (WPOI): WPOI 1-4 MARGINS Specimen Margin Status for Invasive Tumor: All specimen margins negative for invasive tumor Distance from Invasive Tumor to Closest Specimen Margin: 2 mm Closest Specimen Margin(s) to Invasive Tumor: right Specimen Margin Status for Noninvasive Tumor (High-grade Dysplasia): All specimen margins negative for high-grade dysplasia / in situ disease Tumor Bed Margin Status: Tumor Bed Margin Orientation: Unoriented to true margin surface Tumor Bed Margin Status for Invasive Tumor: All tumor bed margins negative for invasive tumor Tumor Bed Margin Status for Noninvasive Tumor: All tumor bed margins negative for high-grade dysplasia / in situ disease REGIONAL LYMPH NODES Regional Lymph Node Status: Not applicable (no regional lymph nodes submitted or found) pTNM CLASSIFICATION (AJCC 8th Edition) Reporting of pT, pN, and (when applicable) pM categories is based on information available to the pathologist at the time the report is issued. As per the AJCC (Chapter 1, 8th Ed.) it is the managing physician s responsibility to establish the final pathologic stage based upon all pertinent information, including but potentially not limited to this pathology report. pT Category: pT1 pN Category: pN not assigned (no nodes submitted or found) ADDITIONAL FINDINGS Additional Findings: Proliferative verrucous leukoplakia type lesions Comment(s): Director Of Employee Development blocks are A4 and A5. 11/28/2024 11:59 AM CDT [facility] Clinical Information Procedure: Excision of Right Tongue Lesion - Right Pre-op Diagnosis: Lesion of tongue [K14.8] Post-op Diagnosis: K14.8 - Lesion of tongue [ICD-10-CM] 11/28/2024 11:59 AM CDT [facility] Gross Description A(1). Tongue, Tip of tongue lesion: The specimen is received in formalin with proper patient identification, labeled tip of tongue lesion. The specimen consists of a 2.4 x 1.5 cm pale pink, ragged, oriented portion of mucosa, excised to a depth of 0.8 cm. There is a double short stitch that designates 9:00 (right) and a double long stitch that designates 3:00 (left), per the surgeon. The mucosal surface is remarkable for a 1.1 x 1.0 cm brown-molina, roughened lesion that is 0.3 cm from 10:00 (nearest margin) 0.5 cm from 12:00, 1.1 cm from 3:00, and 0.9 cm from 6:00. The specimen is sectioned from 3-9 o'clock, revealing the lesion to extend 0.4 cm deep, less than 0.1 cm from the nearest deep margin. The specimen is inked as follows: 12:00 to 3:00- blue 3:00 to 6:00- black 6:00 to 9:00- green 9:00 to 12:00- orange The specimen is photographically documented. The entire specimen is submitted as follows: A1: 3:00 tip A2-3: Central specimen, submitted sequentially A4-5: 9:00 tip, perpendicularly sectioned with lesion B(2). Tongue, Superior margin: The specimen is received in formalin with proper patient identification, labeled superior margin. The specimen consists of a 1.4 x 0.3 cm pale pink portion mucosa, excised to a depth of 0.6 cm. No lesions or masses are grossly appreciated. The resection margin is inked and the specimen is entirely submitted in 1 cassette. C(3). Tongue, Deep margin: The specimen is received in formalin with proper patient identification, labeled deep margin. The specimen consists of a 0.9 x 0.6 x 0.3 cm brown-molina, ragged tissue fragment. The specimen is inked and entirely submitted in 1 cassette. D(4). Tongue, Inferior margin: The specimen is received in formalin with proper patient identification, labeled inferior margin. The specimen consists of a 1.1 x 0.3 cm pale pink portion mucosa, excised to a depth of 0.6 cm. No masses or lesions are identified. The resection margins are inked and the specimen is entirely submitted in 1 cassette 11/28/2024 11:59 AM T LABORATORY Microscopic Description Microscopic examination has been performed. Director Of Employee Development blocks are A4 and A5. I have personally reviewed all specimens and or slides, including the listed special stains, and used them with my medical judgement to determine the final diagnosis. 11/28/2024 11:59 AM T [facility] MCRS Yes(A) N/A 11/28/2024 11:59 AM CDT [facility] Performing Labs The technical component of this testing was completed at [facility]. Stain controls for all stains resulted within this report have been reviewed and show appropriate reactivity. 11/28/2024 11:59 AM CDT [facility] Case Images 11/28/2024 11:59 AM CDT [facility] Tissue TONGUE STRUCTURE / Unknown 11/21/2024 8:18 AM CDT 11/21/2024 9:37 AM CDT Comment:R/o koilocytosis and HSV if you can Two short stitch right 9 o'clock Two long stitch left 3 o'clock Tissue specimen (specimen) TONGUE STRUCTURE / Unknown 11/21/2024 8:18 AM CDT 11/21/2024 9:37 AM CDT Tissue specimen (specimen) TONGUE STRUCTURE / Unknown 11/21/2024 8:19 AM CDT 11/21/2024 9:37 AM CDT Tissue specimen (specimen) TONGUE STRUCTURE / Unknown 11/21/2024 8:19 AM CDT 11/21/2024 9:37 AM CDT us Maxi BLAKE - JESSICA RODRIGUEZ Final Res ult [facility] Specialty Lab [address] [facility], [address] [phone], [facility] [address] [facility], [address] [phone], [facility] * ANE AIRWAY ETT PERFORMABLE (11/21/2024 7:56 AM CDT) Narrative Justice Bull APRN DEALER SALES REP - 11/21/2024 7:56 AM CDT Justice Bull APRN DEALER SALES REP 11/21/2024 8:07 AM Airway Patient location during procedure: OR Procedure Start/Stop Times: 11/21/2024 7:56 AM Staff - DEALER SALES REP: Justice Bull APRN DEALER SALES REP Performed By: DEALER SALES REP Consent for Airway Urgency: elective Indications and Patient Condition Indications for airway management: yanet-procedural Induction type:intravenous Mask difficulty assessment: 1 - vent by mask Final Airway Details Final airway type: endotracheal airway Successful airway: ETT - single and Oral Endotracheal Airway Details ETT size (mm): 7.0 Cuffed: yes Successful intubation technique: direct laryngoscopy DL Blade Type: Rosales 2 Grade View of Cords: 1 Adjucts: stylet Position: Left Measured from: lips Secured at (cm): 22 Bite block used: None Post intubation assessment Placement verified by: capnometry and equal breath sounds Number of attempts at approach: 1 Number of other approaches attempted: 0 Secured with: tape Ease of procedure: easy Dentition: Intact and Unchanged Medication(s) Administered Medication Administration Time: 11/21/2024 7:56 AM us Mando Martínez MD [place] ANESTHESIA Final Result * COLONOSCOPY - HIM SCAN (10/26/2019 12:00 AM CDT) 10/26/2019 us Provider Outside PROCEDURES Final Result * Comprehensive metabolic panel (11/24/2018 2:28 PM CDT) Sodium 138 133 - 144 mmol/L 11/24/2018 3:[address] [facility] Potassium 4.4 3.4 - 5.3 mmol/L 11/24/2018 3:[address] [facility] Chloride 105 94 - 109 mmol/L 11/24/2018 3:[address] [facility] Carbon Dioxide 26 20 - 32 mmol/L 11/24/2018 3:[address] [facility] Anion Gap 6 3 - 14 mmol/L 11/24/2018 3:[address] [facility] Glucose 82 70 - 99 mg/dL 11/24/2018 3:[address] [facility] Urea Nitrogen 14 7 - 30 mg/dL 11/24/2018 3:[address] [facility] Creatinine 0.83 0.52 - 1.04 mg/dL 11/24/2018 3:[address] [facility] GFR Estimate 75 >60 mL/min/{1. 73_m2} 11/24/2018 3:[address] [facility] Comment: Non GFR Calc Starting 08/03/2018, serum creatinine based estimated GFR (eGFR) will be calculated using the Chronic Kidney Disease Epidemiology Collaboration (CKD-EPI) equation. GFR Estimate If Black 86 >60 mL/min/{1. 73_m2} 11/24/2018 3:[address] [facility] Comment: GFR Calc Starting 08/03/2018, serum creatinine based estimated GFR (eGFR) will be calculated using the Chronic Kidney Disease Epidemiology Collaboration (CKD-EPI) equation. Calcium 9.9 8.5 - 10.1 mg/dL 11/24/2018 3:[address] [facility] Bilirubin Total 0.4 0.2 - 1.3 mg/dL 11/24/2018 3:[address] [facility] Albumin 3.7 3.4 - 5.0 g/dL 11/24/2018 3:[address] [facility] Protein Total 7.7 6.8 - 8.8 g/dL 11/24/2018 3:[address] [facility] Alkaline Phosphatase 98 40 - 150 U/L 11/24/2018 3:[address] [facility] ALT 22 0 - 50 U/L 11/24/2018 3:[address] [facility] AST 18 0 - 45 U/L 11/24/2018 3:[address] [facility] 11/24/2018 2:28 PM CDT 11/24/2018 2:40 PM CDT us Maxi Tate MD LAB - BLOOD ORDERABLES Fi nal Result [address] [phone] * MA Screening Digital Bilateral (07/02/2016) MAMMOGRAM Anatomical Region Laterality Modality Breast Bilateral Other 07/02/2016 Narrative 07/02/2016 [facility] Provider Outside IMG MAMMOGRAPHY ORDERABLES Anayeli l Result * CT Chest w contrast* (02/14/2014 2:16 PM CDT) Anatomical Region Laterality Modality Chest, SUBRAD CT BODY, UMP CT CHEST Computed Tomography Impressions 02/14/2014 4:19 PM CDT IMPRESSION: Unchanged 6 mm subpleural pulmonary nodule of the left lateral lobe. No new pulmonary nodules. Findings are stable from 12/07/2012. I have personally reviewed the examination and initial interpretation and I agree with the findings. RONEY BLACKBURN MD Narrative 02/14/2014 4:19 PM CDT Exam: CT Chest with contrast 02/14/2014 2:16 PM History: Malignant neoplasm of tongue, unspecified site Comparison: CT chest, 12/07/2012 TECHNIQUE: Helical acquisition of CT images of the chest from the lung apices to the kidneys were acquired with IV contrast. FINDINGS: Chest: The great vessels are patent. The thoracic aorta and main pulmonary artery are not dilated. Mild aortic arch calcification. The heart is nonenlarged. No pericardial or pleural effusions. Prominent, normal appearing axillary lymph nodes are unchanged. 9 mm precarinal lymph node (series 2, image 22), stable. Scattered, nonenlarged mediastinal and hilar lymph nodes. The esophagus is unremarkable. The central tracheobronchial tree is patent. No pneumothorax. No focal areas of consolidation. No bronchiectasis. 6 x 4 mm subpleural pulmonary nodule of the lateral left lower lobe (series 6, image 186), previously 6 x 4 mm. 9 x 4 mm oblong calcification of the right posterior costophrenic angle (series 6, image 256) with adjacent fine reticular opacity compatible with atelectasis consistent with a thoracolith.. Abdomen: Limited evaluation of the upper abdomen is unremarkable. Bone: No acute or suspicious osseous lesions. Procedure Note Roney Blackburn MD - 02/14/2014 Exam: CT Chest with contrast 02/14/2014 2:16 PM History: Malignant neoplasm of tongue, unspecified site Comparison: CT chest, 12/07/2012 TECHNIQUE: Helical acquisition of CT images of the chest from the lung apices to the kidneys were acquired with IV contrast. FINDINGS: Chest: The great vessels are patent. The thoracic aorta and main pulmonary artery are not dilated. Mild aortic arch calcification. The heart is nonenlarged. No pericardial or pleural effusions. Prominent, normal appearing axillary lymph nodes are unchanged. 9 mm precarinal lymph node (series 2, image 22), stable. Scattered, nonenlarged mediastinal and hilar lymph nodes. The esophagus is unremarkable. The central tracheobronchial tree is patent. No pneumothorax. No focal areas of consolidation. No bronchiectasis. 6 x 4 mm subpleural pulmonary nodule of the lateral left lower lobe (series 6, image 186), previously 6 x 4 mm. 9 x 4 mm oblong calcification of the right posterior costophrenic angle (series 6, image 256) with adjacent fine reticular opacity compatible with atelectasis consistent with a thoracolith.. Abdomen: Limited evaluation of the upper abdomen is unremarkable. Bone: No acute or suspicious osseous lesions. IMPRESSION IMPRESSION: Unchanged 6 mm subpleural pulmonary nodule of the left lateral lobe. No new pulmonary nodules. Findings are stable from 12/07/2012. I have personally reviewed the examination and initial interpretation and I agree with the findings. 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
--- OUTSIDE RECORDS SUMMARY | 2024-11-29 17:12 | XMS_ITS | Encounter Summary ---
Author Organization Deal Address [address] [place] [id number] Care Team Providers Care Ramp Manager Name Role Phone Maxi Tate MD Unavailable [phone] Lela Zapata RN Unavailable Unavailable Mini Frazier MD Unavailable [phone] Maxi Tate MD Unavailable [phone] Mickey Mills MD Primary Care Provider [phone] Reason for Visit * Auth/Cert Specialty Diagnoses / Procedures Referred By Contac t Referred To Contact Surgery Diagnoses Lesion of tongue Lesion of tongue [K14.8] Procedures OR EXCISION LESION MOUTH W/O REPAIR OR EXCISION LESION MOUTH W SIMPLE REPAIR OR EXCIS MOUTH MUCOSA/SUB,COMPLX REPR OR EXCIS MOUTH COMPLEX,EXC THRU MUSCLE OR EXC LESION OF TONGUE W/O CLOSURE OR EXCISION LESION TONGUE W/CLOSURE, ANT 2/3 OR EXCIS TONGUE LESN,POST 1/3 OR EXCIS TONGUE LESN,LOCAL FLAP OR EXCIS FLOOR MOUTH LESION OR EXCIS DENTOALVEOLAR LESION OR EXCIS DENTOALV LESN,SIMPL REPR OR EXCIS DENTOALV LESN,COMPLX REPR OR EXCISION LESION, PALATE/UVULA W/O CLOSURE OR EXCIS LESN,PALATE/UVULA-SIMPL CLOS ZZC EXCIS LESN,PALETE/UVULA-FLAP CLOS Excision of Right Tongue Lesion [address] [facility] [place] [address] Phone: tel: fax: Referral ID Status Reason Start Date Expiration Date Visits Re quested Visits Authorized [id number] 1 1 Encounter Details Date Type Department Care Team (Late st Contact Info) Description 11/21/2024 7:30 AM CDT - 11/21/2024 8:40 AM CDT Surgery [facility]Op [facility] [address] [place] [id number] Maxi Tate MD [address] [facility] [address] [place] [address] Excision of Right Tongue Lesion Surgery Details Date/Time Status Location OR Service Patient Class Case Class Case Type Trauma Case? 11/21/2024 7:30 AM Posted [facility]U OR UU OR 16 Otolaryngology Same Day Surgery Elective Panel 1 Procedure LRB Anes Op Region Wound Class Comments Excision of Right Tongue Lesion Right General Mouth II-Clean Contaminated Surgeon Surgeon Role Service Panel Maxi Tate MD Primary Otolaryngology 1 Shreya Mayes MD Resident - Assisting 1 Special Needs AA: hx - exreme PONV, hx - waking up before extubation, unable to move or communicate - per pt. 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 Sexual Orientation Straight 06/04/2019 11 :41 AM CDT documented as of this encounter Last Filed Vital Signs Vital Sign Reading Time Taken Comments Blood Pressure 148/66 11/21/2024 5:56 AM CDT Pulse 53 11/21/2024 5:56 AM CDT Temperature 36.4 C (97.5 F) 11/21/2024 5:56 AM CDT Respiratory Rate 16 11/21/2024 5:56 AM CDT Oxygen Saturation 97% 11/21/2024 5:56 AM CDT Inhaled Oxygen Concentration - - Weight 72.4 kg (159 lb 9.8 oz) 11/21/2024 5:56 A M CDT Height 162.6 cm (5' 4) 11/21/2024 5:56 AM CDT Body Mass Index 27.4 11/21/2024 5:56 AM CDT documented in this encounter Discharge Instructions * Discharge Instructions* Juanita Anaya RN - 11/21/2024 12:23 PM CDT Contacting your Doctor - To contact a doctor, call Dr Tate'erwin at the Otolaryngology/ENT clinic @ [phone] or: [phone] and ask for the resident loss prevention officer for ENT- Otolaryngology (answered 24 hours a day) Emergency Department: [facility]: [phone] if you are in need of immediate or emergent help After Anesthesia (Sleep Medicine) What should I do after anesthesia? You should rest and relax for the next 24 hours. Avoid risky or difficult (strenuous) activity. A responsible adult should stay with you overnight. Don't drive or use any heavy equipment for 24 hours. Even if you feel normal, your reactions may beaffected by the sleep medicine given to you. Don't drink alcohol or make any important decisions for 24 hours. Slowly get back to your regular diet, as you feel able. How should I expect to feel? It's normal to feel dizzy, light-headed, or faint for up to a full day after anesthesia or while taking pain medicine. If this happens: Sit down for a few minutes before standing. Have someone help you when you get up to walk or use the bathroom. If you have nausea (feel sick to your stomach) or vomit (throw up): Drink clear liquids (such as apple juice, felecia jose eduardo, broth, or 7UP) until you feel better. If you feel sick to your stomach, or you keep vomiting for 24 hours, please call the doctor. What else should I know? You might have a dry mouth, sore throat, muscle aches, or trouble sleeping. These should go away after 24 hours. Please contact your doctor if you have any other symptoms that concern you, such as fever, pain, bleeding, fluid drainage, swelling, or headache, or if it's been over 8 to 10 hours and you still aren't able to pee (urinate). If you have a history of sleep apnea, it's very important to use your CPAP machine for the next 24 hours when you nap or sleep. documented in this encounter Medications at Time of Discharge acetaminophen (TYLENOL) 325 MG tabletIndications:L esion of tongue Take 2 tablets (650 mg) by mouth every 4 hours as needed for mild pain. 50 tablet 11/21/2024 acetaminophen (TYLENOL) 325 MG tablet Take 325-650 mg by mouth every 6 hours as needed for mild pain chlorhexidine (PERIDEX) 0.12 % solutionIndications :Lesion of tongue Swish and spit 15 mLs in mouth 2 times daily. 473 mL 1 11/21/2024 ELIQUIS ANTICOAGULANT 5 MG tablet TAKE TWO TABLETS BY MOUTH TWICE A DAY FOR 7 DAYS THEN TAKE ONE TABLET BY MOUTH TWICE A DAY FOR 21 DAYS gabapentin (NEURONTIN) 100 MG capsuleIndications: Leukoplakia of oral cavity,Oral lesion Take 1 capsule (100 mg) by mouth 3 times daily. 90 capsule 5 08/30/2024 LEVOTHYROXINE SODIUM PO Take 100 mcg by mouth daily. lidocaine, viscous, (XYLOCAINE) 2 % solutionIndications :Lesion of tongue,Tongue cancer (H) Swish and spit 15 mLs in mouth every 3 hours as needed for pain. ; Max 8 doses/24 hour period. 500 mL 3 11/15/2024 lidocaine, viscous, (XYLOCAINE) 2 % solutionIndications :Lesion of tongue Swish and spit 15 mLs in mouth every 4 hours as needed for pain. ; Max 8 doses/24 hour period. 500 mL 2 08/15/2024 lidocaine, viscous, (XYLOCAINE) 2 % solutionIndications :Tongue cancer (H) Swish and spit 15 mLs in mouth every 3 hours as needed for pain ; Max 8 doses/24 hour period. 300 mL 1 09/14/2023 lisinopril (ZESTRIL) 10 MG tablet Take 20 mg by mouth daily. magic mouthwash (ENTER INGREDIENTS IN COMMENTS) suspensionIndicatio ns:Lesion of tongue,Tongue cancer (H) Take 5 mLs by mouth every 4 hours as needed (oral pain). 500 mL 2 11/15/2024 magic mouthwash (ENTER INGREDIENTS IN COMMENTS) suspensionIndicatio ns:Lesion of tongue Take 5 mL by mouth every 4 hours if needed for pain. 500 mL 3 08/11/2024 magic mouthwash suspension (diphenhydrAMINE, lidocaine, aluminum-magnesium & simethicone)Indicat ions:Lesion of tongue Swish and swallow 10 mLs in mouth every 6 hours as needed for mouth sores. 500 mL 3 11/21/2024 montelukast (SINGULAIR) 10 MG tablet Take 10 mg by mouth 06/06/2021 omeprazole (PRILOSEC) 20 MG CR capsule 06/04/2016 ondansetron (ZOFRAN ODT) 4 MG ODT tabIndications:Lesi on of tongue Take 1 tablet (4 mg) by mouth every 8 hours as needed for nausea. 30 tablet 11/21/2024 oxyCODONE (ROXICODONE) 5 MG tabletIndications:L esion of tongue Take 1 tablet (5 mg) by mouth every 4 hours as needed for moderate to severe pain or moderate pain. 60 tablet 11/21/2024 senna-docusate (SENOKOT-S/PERICOLA CE) 8.6-50 MG tabletIndications:T ongue cancer (H) Take 1-2 tablets by mouth 2 times daily. 30 tablet 08/01/2024 Vitamin D, Cholecalciferol, 25 MCG (1000 UT) CAPSIndications:Ora l lesion Take 25 mcg by mouth daily. 90 capsule 1 09/20/2024 documented as of this encounter Nursing Notes * Dulce Rich RN - 11/21/2024 5:41 AM CDT Page sent to otolaryngology loss prevention officer: Pt Kelly Langley in PACU does not have pre-op orders. Dulce Rich RN [phone]. documented in this encounter Miscellaneous Notes * Brief Op Note - Shreya Mayes MD - 11/21/2024 8:39 AM CDT [facility] Brief Operative Note Pre-operative diagnosis: Lesion of tongue [K14.8] Post-operative diagnosis Same as pre-operative diagnosis Procedure: Excision of Right Tongue Lesion, Right - Mouth Surgeon: Surgeons and Role: * Maxi Tate MD - Primary * Shreya Mayes MD - Resident - Assisting Anesthesia: General Estimated Blood Loss: 10 mL from 11/21/2024 7:40 AM to 11/21/2024 8:38 AM Drains: None Specimens: ID Type Source Tests Collected by Time Destination 1 : Tip of tongue lesion Tissue Tongue SURGICAL PATHOLOGY EXAM Maxi Tate MD 11/21/2024 8:18 AM 2 : Superior margin Tissue Tongue SURGICAL PATHOLOGY EXAM Maxi Tate MD 11/21/2024 8:18 AM 3 : Deep margin Tissue Tongue SURGICAL PATHOLOGY EXAM Maxi Tate MD 11/21/2024 8:19 AM 4 : Inferior margin Tissue Tongue SURGICAL PATHOLOGY EXAM Maxi Tate MD 11/21/2024 8:19 AM Findings: Verrucous lesion at tip of tongue, circumferentially excised. . Complications: None. Implants: * No implants in log * * Op Note - Maxi Tate MD - 11/21/2024 8:08 AM CDT Otolaryngology Operative Report Date of Operation: November 21, 2024 Patient Name: Kelly Langley Patient : 1955 Patient Staff Surgeon: Mynor Tate MD Resident Surgeon: Shreya Mayes MD Preoperative Diagnosis: 1. Anterior tongue lesion Postoperative Diagnosis: Same Procedure: 1. Anterior partial glossectomy. Anesthesia: General Findings: Verrucous lesion at tip of tongue, circumferentially excised 2.5 x 1 cm. 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 All risks and benefits were discussed with the consenting democrat and they elected to proceed with the procedure. Description of Procedure: The patient was brought to the operating room and placed in supine position on the operating table. General anesthesia was induced and all appropriate monitoring lines were placed. The patient was prepped and draped in the usual fashion. A mouth graphic art designer was placed. The lesion was marked and infiltrated with 1% lido with epi. The lesion was circumferentially excised using monopolar cautery; adequate excision was confirmed with manual palpation. Superior, deep and inferior margins were taken. The tongue was closed with horizontal mattress sutures using 3-0 vycril. This concluded our procedure. The patient was then turned over to our anesthesia colleagues and wasextubated and taken to the PACU in satisfactory and stable condition. Dr. Tate was scrubbed or the entire procedure documented in this encounter Plan of Treatment Upcoming Encounters Date Type Department Care Team (Late st Contact Info) Description 12/26/2024 9:30 AM CDT Office Visit [facility] Pain Management [place] [address] [place] [address] Galina Lopez APRN LINING STUFFER [address] [facility] [address] [place] [address] documented as of this encounter Procedures Procedure Name Priority Date/Time Associated Diagnosis Comments SURGICAL PATHOLOGY EXAM Routine 11/21/2024 8:18 AM CDT EXCISION, LESION, MOUTH 11/21/2024 7:40 AM CDT Lesion of tongue Special Needs AA: hx - exreme PONV, hx - waking up before extubation, unable to move or communicate - per pt. documented in this encounter Results * (ABNORMAL) Surgical Pathology Exam (11/21/2024 8:18 AM CDT) Case Report Surgical Pathology Report Case: [id number] Authorizing Provider: Maxi Tate MD Collected: 11/21/2024 [...] Findings: Proliferative verrucous leukoplakia type lesions Comment(s): Dental Surgery Doctor blocks are A4 and A5. 11/28/2024 11:59 AM CDT SPECIALTY LABS Clinical Information Procedure: Excision of Right Tongue Lesion - Right Pre-op Diagnosis: Lesion of tongue [K14.8] Post-op Diagnosis: K14.8 - Lesion of tongue [ICD-10-CM] 11/28/2024 11:59 AM [facility] Gross Description A(1). Tongue, Tip of [...] submitted in 1 cassette 11/28/2024 11:59 AM CDT [facility] Microscopic Description Microscopic examination has been performed. Dental Surgery Doctor blocks are A4 and A5. I have personally reviewed all specimens and or slides, including the listed special stains, and used them with my medical judgement to determine the final diagnosis. 11/28/2024 11:59 AM CDT [facility] MCRS Yes(A) N/A 11/28/2024 11:59 AM CDT [facility] Performing Labs The technical component of this testing was completed at [facility]. Stain controls for all stains [...] CDT 11/21/2024 9:37 AM CDT us Maxi Tate MD LAB - JESS[facility] RODRIGUEZ Final Res ult [facility] [address] [facility] [address] [facility], Room [address] [place] [phone], [facility] [address] [facility] [address] [facility], [address] [place] [phone], [facility] documented in this encounter Visit Diagnoses Diagnosis Lesion of tongue- Primary Other specified conditions of the tongue Lesion of tongue Other specified conditions of the tongue documented in this encounter Administered Medications Inactive Administered Medications - up to 3 most recent administrations Medication Order MAR Action Action Date Dose Rate Site acetaminophen (TYLENOL) tablet 650 mg 650 mg, Oral, ONCE PRN, mild pain, to moderate pain, Starting on Thu11/21/24 at 1233, One time prior to discharge. Maximum acetaminophen dose from all sources = 75 mg/kg/day not to exceed 4 grams/day. $Given 11/21/2024 12:50 PM CDT 650 mg dexAMETHasone (DECADRON) injection 4 mg 4 mg, Intravenous, ONCE PRN, vomiting, nausea, Administer over 1 Minutes, Starting on Thu11/21/24 at 1245, For 1 dose, Administer ONLY if dexamethasone (DECADRON) NOT given in the OR. This is Step 2 of nausea and vomiting management. IF nausea vomiting NOT resolved within 30 minutes or dexamethasone (DECADRON) was given in the OR go to Step 3 prochlorperazine (COMPAZINE)., Phase ll fentaNYL (PF) (SUBLIMAZE) injection 50 mcg 50 mcg, Intravenous, EVERY 5 MIN PRN, severe pain, Give fentaNYL (SUBLIMAZE) first if HYDROmorphone (DILAUDID) also ordered., Starting on Thu11/21/24 at 0906, Administer fentaNYL (SUBLIMAZE) for acute pain control. Move to HYDROmorphone (DILAUDID): - IF patient has received up to 200 mcg of fentaNYL (SUBLIMAZE), OR - IF patient has received 2 doses of fentaNYL (SUBLIMAZE) AND continues to have severe pain (pain score greater than or equal to seven (7) or is unable to participate in post op recovery due to pain. Wait 5 minutes AFTER last fentaNYL (SUBLIMAZE) dose before administering HYDROmorphone (DILADUDID). Postop Anesthesia Phase I only. Notify Provider to assess for uncontrolled pain or analgesic side effects. DO NOT revert back to fentanyl (SUBLIMAZE) after administering HYDROmorphone (DILAUDID)., PACU $Given 11/21/2024 9:19 AM CDT 50 mcg $Given 11/21/2024 9:12 AM CDT 50 mcg HYDROmorphone (DILAUDID) injection 0.4 mg 0.4 mg, Intravenous, EVERY 5 MIN PRN, severe pain, Starting on Thu11/21/24 at 0906, Use FentaNYL (SUBLIMAZE) first if ordered. Maximum total cumulative dose NOT to exceed 2 mg. DO NOT revert back to fentanyl (SUBLIMAZE) after administering HYDROmorphone (DILAUDID). Notify Provider to assess for uncontrolled pain or analgesic side effects., PACU $Given 11/21/2024 10:22 AM CDT 0.4 mg $Given 11/21/2024 9:56 AM CDT 0.4 mg $Given 11/21/2024 9:51 AM CDT 0.4 mg lidocaine (viscous) (XYLOCAINE) 2 % solution 2.5 mL 2.5 mL, Mouth/Throat, ONCE PRN, sore throat, mouth sores, Starting on Thu11/21/24 at 1049, For 1 dose $Given 11/21/2024 11:31 AM CDT 2.5 mLs lidocaine 1% with EPINEPHrine 1:100,000 injection PRN, Starting on Thu11/21/24 at 0809, Intra-procedure $Given 11/21/2024 8:09 AM CDT 3 mLs Operative Site/Surgi lane Site naloxone (NARCAN) injection 0.1 mg 0.1 mg, Intravenous, EVERY 2 MIN PRN, opioid reversal, Starting on Thu11/21/24 at 1245, Notify Anesthesia Provider when administering naloxone (NARCAN) for unintended sedation or respiratory depression IF all three of the following criteria are met: 1. Respiratory rate LESS than or EQUAL to 8. 2. SaO2 is LESS than 92% and/or end-tidal CO2 is GREATER than 50. 3. Patient is receiving an opioid, has unintended sedation assessed as RASS (-4) or (-5) and patient is NOT currently on mechanical ventilation. RASS scale (-4) is deep sedation with no response to voice but movement or eye opening to physical stimulation. RASS scale (-5) is unarousable. Notify Anesthesia Provider PRIOR to administering additional opioids if naloxone (NARCAN) given. Once patient has demonstrated a response to naloxone (NARCAN), continue to monitor respiratory rate, depth, oxygen saturation EVERY 15 minutes x 2, then EVERY 30 minutes x 2, then EVERY hour x 1 after each naloxone (NARCAN) dose. Monitor in Phase II for 2 hours after last naloxone (NARCAN) dose PRIOR to discharge., Phase ll ondansetron (ZOFRAN ODT) ODT tab 4 mg 4 mg, Oral, EVERY 30 MIN PRN, nausea, Starting on Thu11/21/24 at 1245, For 2 doses, Administer if NO vascular access present. This is Step 1 of nausea and vomiting management. If nausea/vomiting not resolved in 15 minutes, go to Step 2 dexamethasone (DECADRON) IV. MAX total dose = 8 mg, including OR dosing. With dry hands, peel back foil backing and gently remove tablet. Do not push oral disintegrating tablet through foil backing. Administer immediately on tongue and oral disintegrating tablet dissolves in seconds, then swallow with saliva. Liquid not required., Phase ll ondansetron (ZOFRAN) injection 4 mg 4 mg, Intravenous, EVERY 30 MIN PRN, nausea, Administer over 2-5 Minutes, Starting on Thu11/21/24 at 0906, For 2 doses, This is Step 1 of nausea and vomiting management. If nausea/vomiting not resolved in 15 minutes, then go to Step 2 dexamethasone (DECADRON) IV. MAX total dose = 8 mg, including OR dosing., PACU $Given 11/21/2024 10:24 AM CDT 4 mg ondansetron (ZOFRAN) injection 4 mg 4 mg, Intravenous, EVERY 30 MIN PRN, nausea, Administer over 2-5 Minutes, Starting on Thu11/21/24 at 1245, For 2 doses, This is Step 1 of nausea and vomiting management. If nausea/vomiting not resolved in 15 minutes, then go to Step 2 dexamethasone (DECADRON) IV. MAX total dose = 8 mg, including OR dosing., Phase ll oxyCODONE (ROXICODONE) tablet 5 mg 5 mg, Oral, ONCE PRN, moderate pain, Starting on Thu11/21/24 at 1245, For 1 dose, Max: 5 mg for opioid-na ve patient., Phase ll $Given 11/21/2024 12:50 PM CDT 5 mg oxyCODONE IR (ROXICODONE) tablet 10 mg 10 mg, Oral, ONCE PRN, severe pain, Starting on Thu11/21/24 at 1245, For 1 dose, Max: 5 mg for opioid-na ve patient. Use caution with patient Age GREATER than 65 years, COPD, or CrCl LESS than 50 mL/min., Phase ll prochlorperazine (COMPAZINE) injection 5 mg 5 mg, Intravenous, EVERY 6 HOURS PRN, nausea, vomiting, Administer over 1-2 Minutes, Starting on Thu11/21/24 at 1245, This is Step 3 of the nausea and vomiting protocol. If nausea/vomitting not resolved in 15-30 minutes, notify Provider., Phase ll $Given 11/21/2024 12:46 PM CDT 5 mg documented in this encounter Active and Recently Administered Medications Times are shown in CDT. Scheduled Medication Order 11/19/2024 11/20/2024 11/21/2024 dexAMETHasone PF (DECADRON) injection 10 mg (COMPLETED) 10 mg, Intravenous, ONCE, Administer over 1 Minutes, On Thu11/21/24 at 0600, For 1 dose, Give dose upon induction., Pre-procedure 0759 ($Given - Provi sam: Justice Bull APRN CRNA) fosaprepitant (EMEND) 150 mg in sodium chloride 0.9 % 275 mL intermittent infusion (COMPLETED) 150 mg, Intravenous, ONCE, On Thu11/21/24 at 0800, For 1 dose, Administer over 20 Minutes, Intra-procedure 0759 ($New Bag - Pro vider: Mando Martínez MD) methadone (DOLOPHINE) injection 7.24 mg (COMPLETED) 7.24 mg (0.1 mg/kg 72.4 kg), Intravenous, ONCE, On Thu11/21/24 at 0800, For 1 dose, Anesthesia Intra-op, Indication: Pain Management 0759 ($Given - Provi sam: Mando Martínez MD) PRN Medication Order 11/19/2024 11/20/2024 11/21/2024 acetaminophen (TYLENOL) tablet 650 mg 650 mg, Oral, ONCE PRN, mild pain, to moderate pain, Starting on Thu11/21/24 at 1233, One time prior to discharge. Maximum acetaminophen dose from all sources = 75 mg/kg/day not to exceed 4 grams/day. 1250 ($Given - Provi sam: Juanita Anaya RN) dexAMETHasone (DECADRON) injection 4 mg 4 mg, Intravenous, ONCE PRN, vomiting, nausea, Administer over 1 Minutes, Starting on Thu11/21/24 at 1245, For 1 dose, Administer ONLY if dexamethasone (DECADRON) NOT given in the OR. This is Step 2 of nausea and vomiting management. IF nausea vomiting NOT resolved within 30 minutes or dexamethasone (DECADRON) was given in the OR go to Step 3 prochlorperazine (COMPAZINE)., Phase ll fentaNYL (PF) (SUBLIMAZE) injection 50 mcg (CANCELED) 50 mcg, Intravenous, EVERY 5 MIN PRN, severe pain, Give fentaNYL (SUBLIMAZE) first if HYDROmorphone (DILAUDID) also ordered., Starting on Thu11/21/24 at 0906, Administer fentaNYL (SUBLIMAZE) for acute pain control. Move to HYDROmorphone (DILAUDID): - IF patient has received up to 200 mcg of fentaNYL (SUBLIMAZE), OR - IF patient has received 2 doses of fentaNYL (SUBLIMAZE) AND continues to have severe pain (pain score greater than or equal to seven (7) or is unable to participate in post op recovery due to pain. Wait 5 minutes AFTER last fentaNYL (SUBLIMAZE) dose before administering HYDROmorphone (DILADUDID). Postop Anesthesia Phase I only. Notify Provider to assess for uncontrolled pain or analgesic side effects. DO NOT revert back to fentanyl (SUBLIMAZE) after administering HYDROmorphone (DILAUDID)., PACU 0912 ($Given - Provi sam: Amara Duffy RN)0919 ($Given - Provider: Amara Duffy RN) HYDROmorphone (DILAUDID) injection 0.4 mg (CANCELED) 0.4 mg, Intravenous, EVERY 5 MIN PRN, severe pain, Starting on Thu11/21/24 at 0906, Use FentaNYL (SUBLIMAZE) first if ordered. Maximum total cumulative dose NOT to exceed 2 mg. DO NOT revert back to fentanyl (SUBLIMAZE) after administering HYDROmorphone (DILAUDID). Notify Provider to assess for uncontrolled pain or analgesic side effects., PACU 0927 ($Given - Provi sam: Amara Duffy RN)0938 ($Given - Provider: Amara Duffy RN)0951 ($Given - Provider: Amara Duffy RN)0956 ($Given - Provider: Amara Duffy RN)1022 ($Given - Provider: Amara Duffy RN) lidocaine (viscous) (XYLOCAINE) 2 % solution 2.5 mL (COMPLETED) 2.5 mL, Mouth/Throat, ONCE PRN, sore throat, mouth sores, Starting on Thu11/21/24 at 1049, For 1 dose 1131 ($Given - Provi sam: Amara Duffy RN) lidocaine 1% with EPINEPHrine 1:100,000 injection (CANCELED) PRN, Starting on Thu11/21/24 at 0809, Intra-procedure 0809 ($Given - Provi sam: Maxi Tate MD) naloxone (NARCAN) injection 0.1 mg 0.1 mg, Intravenous, EVERY 2 MIN PRN, opioid reversal, Starting on Thu11/21/24 at 1245, Notify Anesthesia Provider when administering naloxone (NARCAN) for unintended sedation or respiratory depression IF all three of the following criteria are met: 1. Respiratory rate LESS than or EQUAL to 8. 2. SaO2 is LESS than 92% and/or end-tidal CO2 is GREATER than 50. 3. Patient is receiving an opioid, has unintended sedation assessed as RASS (-4) or (-5) and patient is NOT currently on mechanical ventilation. RASS scale (-4) is deep sedation with no response to voice but movement or eye opening to physical stimulation. RASS scale (-5) is unarousable. Notify Anesthesia Provider PRIOR to administering additional opioids if naloxone (NARCAN) given. Once patient has demonstrated a response to naloxone (NARCAN), continue to monitor respiratory rate, depth, oxygen saturation EVERY 15 minutes x 2, then EVERY 30 minutes x 2, then EVERY hour x 1 after each naloxone (NARCAN) dose. Monitor in Phase II for 2 hours after last naloxone (NARCAN) dose PRIOR to discharge., Phase ll ondansetron (ZOFRAN ODT) ODT tab 4 mg(Linked Group 1) 4 mg, Oral, EVERY 30 MIN PRN, nausea, Starting on Thu11/21/24 at 1245, For 2 doses, Administer if NO vascular access present. This is Step 1 of nausea and vomiting management. If nausea/vomiting not resolved in 15 minutes, go to Step 2 dexamethasone (DECADRON) IV. MAX total dose = 8 mg, including OR dosing. With dry hands, peel back foil backing and gently remove tablet. Do not push oral disintegrating tablet through foil backing. Administer immediately on tongue and oral disintegrating tablet dissolves in seconds, then swallow with saliva. Liquid not required., Phase ll ondansetron (ZOFRAN) injection 4 mg (CANCELED)(Linked Group 2) 4 mg, Intravenous, EVERY 30 MIN PRN, nausea, Administer over 2-5 Minutes, Starting on Thu11/21/24 at 0906, For 2 doses, This is Step 1 of nausea and vomiting management. If nausea/vomiting not resolved in 15 minutes, then go to Step 2 dexamethasone (DECADRON) IV. MAX total dose = 8 mg, including OR dosing., PACU 1024 ($Given - Provi sam: Amara Duffy RN) ondansetron (ZOFRAN) injection 4 mg(Linked Group 1) 4 mg, Intravenous, EVERY 30 MIN PRN, nausea, Administer over 2-5 Minutes, Starting on Thu11/21/24 at 1245, For 2 doses, This is Step 1 of nausea and vomiting management. If nausea/vomiting not resolved in 15 minutes, then go to Step 2 dexamethasone (DECADRON) IV. MAX total dose = 8 mg, including OR dosing., Phase ll oxyCODONE (ROXICODONE) tablet 5 mg 5 mg, Oral, ONCE PRN, other, pain control or improvement in physical function. , Starting on Thu11/21/24 at 1233, For 1 dose, Notify provider to assess for uncontrolled pain or analgesic side effects. oxyCODONE (ROXICODONE) tablet 5 mg (COMPLETED) 5 mg, Oral, ONCE PRN, moderate pain, Starting on Thu11/21/24 at 1245, For 1 dose, Max: 5 mg for opioid-na ve patient., Phase ll 1250 ($Given - Provi sam: Juanita Anaya RN) oxyCODONE IR (ROXICODONE) tablet 10 mg 10 mg, Oral, ONCE PRN, severe pain, Starting on Thu11/21/24 at 1245, For 1 dose, Max: 5 mg for opioid-na ve patient. Use caution with patient Age GREATER than 65 years, COPD, or CrCl LESS than 50 mL/min., Phase ll prochlorperazine (COMPAZINE) injection 5 mg 5 mg, Intravenous, EVERY 6 HOURS PRN, nausea, vomiting, Administer over 1-2 Minutes, Starting on Thu11/21/24 at 1245, This is Step 3 of the nausea and vomiting protocol. If nausea/vomitting not resolved in 15-30 minutes, notify Provider., Phase ll 1246 ($Given - Provi sam: Juanita Anaya RN) Linked Groups Order Group 1: ondansetron (ZOFRAN ODT) ODT tab 4 mgJump to med 4 mg, Oral, EVERY 30 MIN PRN, nausea, Starting on Thu11/21/24 at 1245, For 2 doses, Administer if NO vascular access present. This is Step 1 of nausea and vomiting management. If nausea/vomiting not resolved in 15 minutes, go to Step 2 dexamethasone (DECADRON) IV. MAX total dose = 8 mg, including OR dosing. With dry hands, peel back foil backing and gently remove tablet. Do not push oral disintegrating tablet through foil backing. Administer immediately on tongue and oral disintegrating tablet dissolves in seconds, then swallow with saliva. Liquid not required., Phase ll Or ondansetron (ZOFRAN) injection 4 mgJump to med 4 mg, Intravenous, EVERY 30 MIN PRN, nausea, Administer over 2-5 Minutes, Starting on Thu11/21/24 at 1245, For 2 doses, This is Step 1 of nausea and vomiting management. If nausea/vomiting not resolved in 15 minutes, then go to Step 2 dexamethasone (DECADRON) IV. MAX total dose = 8 mg, including OR dosing., Phase ll Group 2: ondansetron (ZOFRAN ODT) ODT tab 4 mg (CANCELED) 4 mg, Oral, EVERY 30 MIN PRN, nausea, Starting on Thu11/21/24 at 0906, For 2 doses, Administer if NO vascular access present. This is Step 1 of nausea and vomiting management. If nausea/vomiting not resolved in 15 minutes, go to Step 2 dexamethasone (DECADRON) IV. MAX total dose = 8 mg, including OR dosing. With dry hands, peel back foil backing and gently remove tablet. Do not push oral disintegrating tablet through foil backing. Administer immediately on tongue and oral disintegrating tablet dissolves in seconds, then swallow with saliva. Liquid not required., PACU Or ondansetron (ZOFRAN) injection 4 mg (CANCELED)Jump to med 4 mg, Intravenous, EVERY 30 MIN PRN, nausea, Administer over 2-5 Minutes, Starting on Thu11/21/24 at 0906, For 2 doses, This is Step 1 of nausea and vomiting management. If nausea/vomiting not resolved in 15 minutes, then go to Step 2 dexamethasone (DECADRON) IV. MAX total dose = 8 mg, including OR dosing., PACU documented in this encounter Additional Health Concerns Assessment Noted Time PHQ-9 Depression Total Score: 8 08/23/19 25 12:02 PM ROLL UP MACHINE OPERATOR documented as of this encounter Care Teams Ramp Manager Relationship Specialty Start Date End Date Mickey Mills MD [address] [place] [phone] PCP - General 07/13/23 Maxi Tate MD [address] [place] [address] Otolaryngology 10/31/16 Lela Zapata, RN Specialty Locker Room Attendant ENT-Otolaryngology 01/18/19 Mini Frazier MD [address] [place] [address] Gastroenterology 08/05/19 Maxi Tate MD [address] [place] [address] Assigned Surgical Provider 06/08/20 documented as of this encounter
--- OUTSIDE RECORDS SUMMARY | 2024-11-29 17:12 | XMS_ITS | Encounter Summary ---
Author Organization [place] Address [facility] [place] [address] Care Team Providers Care Supervisor Winding Department Name Role Phone Maxi Tate MD Unavailable [phone] Lela Zapata RN Unavailable Unavailable Mini Frazier MD Unavailable [phone] Maxi Tate MD Unavailable [phone] Mickey Mills MD Primary Care Provider Encounter Details Date Type Department Care Team (Late st Contact Info) Description 11/15/2024 [facility] [place] [facility] [address] 4th [place] [address] Sharmin Hernandes Social History Tobacco [...] PM CDT Legal Sex Female 5:02 PM INSTRUMENT TECH Gender Identity Female 10/22/2019 10:44 AM INSTRUMENT TECH Sexual Orientation Straight 06/04/2019 11 :41 AM CDT documented as of this encounter Plan of Treatment Upcoming Encounters Date Type Department Care Team (Late st Contact Info) Description 12/26/2024 9:30 AM CDT Office Visit [facility] Pain Management [place] [address] [place] [address] [address] [place] [address] Galina Lopez APRN ELECTRICAL ASSEMBLY SUPERVISOR 1600 [facility] 101 [place], [place] [phone] documented as of this encounter Visit Diagnoses Not on filedocumented in this encounter Additional Health Concerns Assessment Noted Time PHQ-9 Depression Total Score: 8 08/23/19 25 12:02 PM INSTRUMENT TECH documented as of this encounter Care Teams Supervisor Winding Department Relationship Specialty Start Date End Date Mickey Mills MD 300 [place] [phone] PCP - General 07/13/23 Maxi Tate MD [address] [place] [phone] Otolaryngology 10/31/16 Lela Zapata, SHAREE Specialty Boilermaker'S Assistant ENT-Otolaryngology 01/18/19 Mini Frazier MD [address] [place] [place] [phone] Gastroenterology 08/05/19 Maxi Tate MD [address] [address] Assigned Surgical Provider 06/08/20 documented as of this encounter
--- OUTSIDE RECORDS SUMMARY | 2024-11-29 17:12 | XMS_ITS | Encounter Summary ---
Author Organization [place] Address [address] [place] [address]. [place] [address] Care Team Providers Care Cryptographic Center Specialist Name Role Phone Maxi Tate MD Unavailable [phone] Lela Zapata RN Unavailable Unavailable Mini Frazier MD Unavailable [phone] Maxi Tate MD Unavailable [phone] Mickey Mills MD Primary Care Provider Encounter Details Date Type Department Care Team (Late st Contact Info) Description 11/05/2024 [facility] Medical Advice [facility] [address] 4th [place] [address] Maxi aTte MD 420 [facility] 396 [place] [address] Social History Tobacco Use Types [...] PM CDT Legal Sex Female 5:02 PM BATON TEACHER Gender Identity Female 10/22/2019 10:44 AM BATON TEACHER Sexual Orientation Straight 06/04/2019 11 :41 AM CDT documented as of this encounter Plan of Treatment Upcoming Encounters Date Type Department Care Team (Late st Contact Info) Description 12/26/2024 9:30 AM CDT Office Visit [facility] Pain Management [place] [address] [place] [address] [address] [place] [address] Galina Lopez APRN INFO SPECIALIST 1600 [facility] 101 [place] [address] documented as of this encounter Visit Diagnoses Not on filedocumented in this encounter Additional Health Concerns Assessment Noted Time PHQ-9 Depression Total Score: 8 08/23/19 25 12:02 PM BATON TEACHER documented as of this encounter Care Teams Cryptographic Center Specialist Relationship Specialty Start Date End Date Mickey Mills MD [address] [place] [phone] PCP - General 07/13/23 Maxi Tate MD 420 [facility] 396 [place], [place] [address] Otolaryngology 10/31/16 Lela Zapata, SHAREE Specialty Magnesium Mill Operator ENT-Otolaryngology 01/18/19 Mini Frazier MD [address] [place] [address] Gastroenterology 08/05/19 Maxi Tate MD [address] [place] [address] 396 [place], [place] [phone] Assigned Surgical Provider 06/08/20 documented as of this encounter
--- OUTSIDE RECORDS SUMMARY | 2024-11-29 17:12 | XMS_ITS | Encounter Summary ---
Author Organization [place] Address [facility] [place] [address] Care Team Providers Care Transverse Abdominal Muscle Nurse Name Role Phone Maxi Tate MD Unavailable [phone] Lela Zapata RN Unavailable Unavailable Mini Frazier MD Unavailable [phone] Maxi Tate MD Unavailable [phone] Mickey Mills MD Primary Care Provider Encounter Details Date Type Department Care Team (Late st Contact Info) Description 11/16/2024 [facility] Medical Advice [facility] PREOP/PHASE II 2450 [place] [phone] Sandrine Reddy RN Social History Tobacco Use Types Packs/Day [...] PM CDT Legal Sex Female 5:02 PM COFFEE SHOP ATTENDANT Gender Identity Female 10/22/2019 10:44 AM COFFEE SHOP ATTENDANT Sexual Orientation Straight 06/04/2019 11 :41 AM CDT documented as of this encounter Plan of Treatment Upcoming Encounters Date Type Department Care Team (Late st Contact Info) Description 12/26/2024 9:30 AM CDT Office Visit [facility] Pain Management [address] [place] [address] Galina Lopez, ANGELA LEAD SUSTAINABILITY SPECIALIST [address] [facility] 101 [place], [place] [phone] documented as of this encounter Visit Diagnoses Not on filedocumented in this encounter Additional Health Concerns Assessment Noted Time PHQ-9 Depression Total Score: 8 08/23/19 25 12:02 PM COFFEE SHOP ATTENDANT documented as of this encounter Care Teams Transverse Abdominal Muscle Nurse Relationship Specialty Start Date End Date Mickey Mills MD [address] [place] [phone] PCP - General 07/13/23 Maxi Tate MD [address] [place] [address] Otolaryngology 10/31/16 Lela Zapata, RN Specialty Acupuncturist ENT-Otolaryngology 01/18/19 Mini Frazier MD [address] [place] [address] Gastroenterology 08/05/19 Maxi Tate MD 420 [facility] 396 [place] [address] Assigned Surgical Provider 06/08/20 documented as of this encounter
--- OUTSIDE RECORDS SUMMARY | 2024-11-29 17:12 | XMS_ITS | Encounter Summary ---
Author Organization [place] Address [address] [place] [address]. [place] [address] Care Team Providers Care Healthcare Marketer Name Role Phone Maxi Tate MD Unavailable Lela Zapata RN Unavailable Unavailable Mini Frazier MD Unavailable [phone] Maxi Tate MD Unavailable Mickey Mills MD Primary Care Provider Encounter Details Date Type Department Care Team (Late st Contact Info) Description 11/01/2024 Prep for Procedure [facility] N[facility] Th[facility] [place] [address] [facility] [address] 4th [place] [address] Maxi Tate MD 420 [facility] 396 [place] [address] Lesion of tongue (Primary Dx) Social History Tobacco Use Types [...] PM CDT Legal Sex Female 5:02 PM BACK HOE MACHINE OPERATOR Gender Identity Female 10/22/2019 10:44 AM BACK HOE MACHINE OPERATOR Sexual Orientation Straight 06/04/2019 11 :41 AM CDT documented as of this encounter Plan of Treatment Upcoming Encounters Date Type Department Care Team (Late st Contact Info) Description 12/26/2024 9:30 AM CDT Office Visit [facility] Pain Management [place] [address] [facility] [address] [place] [address] Galina Lopez APRN SERVICES EXECUTIVE 1600 [facility] 101 [place] [address] documented as of this encounter Visit Diagnoses Diagnosis Lesion of tongue- Primary Other specified conditions of the tongue documented in this encounter Additional Health Concerns Assessment Noted Time PHQ-9 Depression Total Score: 8 08/23/19 25 12:02 PM BACK HOE MACHINE OPERATOR documented as of this encounter Care Teams Healthcare Marketer Relationship Specialty Start Date End Date Mickey Mills MD [address] [place] [phone] PCP - General 07/13/23 Maxi Tate MD 420 [facility] 396 [place] [address] Otolaryngology 10/31/16 Lela Zapata RN Specialty Fusing Machine Tender ENT-Otolaryngology 01/18/19 Mini Frazier MD 909 [place], [place] [phone] Gastroenterology 08/05/19 Maxi Tate MD 420 [facility] 396 [place], [place] [phone] Assigned Surgical Provider 06/08/20 documented as of this encounter
--- OUTSIDE RECORDS SUMMARY | 2024-11-29 17:12 | XMS_ITS | Encounter Summary ---
Author Organization [place] Address [address] [place] [address] Care Team Providers Care Telegraph Printer Mechanic Name Role Phone Maxi Tate MD Unavailable [phone] Lela Zapata RN Unavailable Unavailable Mini Frazier MD Unavailable [phone] Maxi Tate MD Unavailable [phone] Mickey Mills MD Primary Care Provider Reason for Visit * Reason Onset Date Comments Call Back 11/15/2024 Encounter Details Date Type Department Care Team (Late st Contact Info) Description 11/15/2024 Telephone [facility] [address] 4th [place] [address] Maxi Tate MD [address] [place] [address] Call Back Social History Tobacco Use Types Packs/Day Years [...] PM CDT Legal Sex Female 5:02 PM RIM ROLLER OPERATOR Gender Identity Female 10/22/2019 10:44 AM RIM ROLLER OPERATOR Sexual Orientation Straight 06/04/2019 11 :41 AM CDT documented as of this encounter Miscellaneous Notes * Telephone Encounter - Marsha King - 11/15/2024 3:39 PM CDT Called patient and to discuss previous message and mychart messages. Reviewed pain management plan. Discussed that [place] has been [place] [facility] Patient and agreeable with plan of care. Will update clinic if pain is still not controlled. Plan for surgery as scheduled. Marsha ALVARADO, RN * Telephone Encounter - Meredith Zaragoza - 11/15/2024 10:56 AM CDT Health Call Center Phone Message May a detailed message be left on voicemail: yes Reason for Call: Other: Per pt's the pt is in a lot of pain and he needs to know if he should take her into the ED for pain management. He is also wanting to know if her up coming procedure can be done at a hospital? Please call to discuss. Thank you Action Taken: Message routed to: [facility] ENT Travel Screening: Not Applicable Date of Service: * Addendum Note - Marsha King - 11/15/2024 10:56 AM CDTAddended by: MARSHA KING on: 11/15/2024 04:22 PM Modules accepted: Orders documented in this encounter Plan of Treatment Upcoming Encounters Date Type Department Care Team (Late st Contact Info) Description 12/26/2024 9:30 AM CDT Office Visit [facility] Pain Management [place] [address] [facility] [address] [place] [address] Galina Lopez APRN HELIX COIL WINDER 1600 [facility] 101 [place] [address] documented as of this encounter Visit Diagnoses Diagnosis Lesion of tongue- Primary Other specified conditions of the tongue 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, unspecified site documented in this encounter Additional Health Concerns Assessment Noted Time PHQ-9 Depression Total Score: 8 08/23/19 25 12:02 PM RIM ROLLER OPERATOR documented as of this encounter Care Teams Telegraph Printer Mechanic Relationship Specialty Start Date End Date Mickey Mills MD [address] [place] [phone] PCP - General 07/13/23 Maxi Tate MD [address] [place] [address] Otolaryngology 10/31/16 Lela Zapata, RN Specialty Senior Supply Chain Analyst ENT-Otolaryngology 01/18/19 Mini Frazier MD 909 [place], [place] [address] Gastroenterology 08/05/19 Maxi Tate MD [address] [address] Assigned Surgical Provider 06/08/20 documented as of this encounter
--- OUTSIDE RECORDS SUMMARY | 2024-11-29 17:12 | XMS_ITS | Encounter Summary ---
Author Organization [place] Address [address] [place] [address] Care Team Providers Care Tailor Men'S Ready To Wear Name Role Phone Wilber Mittal Primary Care Provider [phone] Maxi Tate MD Unavailable Lela Zapata RN Unavailable Unavailable Mini Frazier MD Unavailable [phone] Maxi Tate MD Unavailable [phone] Mickey Mills MD Primary Care Provider Encounter Details Date Type Department Care Team (Late st Contact Info) Description 02/22/2023 [facility] [place] [facility] [address] 4th [place] [address] Maxi Tate MD [address] [place] [address] Social History Tobacco Use Types Packs/Day Years Used Date Smoking Tobacco: Former Cigarettes 0.5 40 0 10/27/1972 - 10/27/2012 Smokeless Tobacco: Never Alcohol Use Standard Drinks/Week Comments Yes 0 (1 standard drink = 0.6 oz pur e alcohol) once a week PHQ-2 Answer Date Recorded PHQ-2 Score 2 12/05/2022 Comments No Sex and Gender Information Value Date Recorded Sex Assigned at Female 02/16/2021 5:23 PM CDT Legal Sex Female 5:02 PM ANTIQUE FURNITURE REPRODUCER Gender Identity Female 10/22/2019 10:44 AM ANTIQUE FURNITURE REPRODUCER Sexual Orientation Straight 06/04/2019 11 :41 AM CDT documented as of this encounter Plan of Treatment Upcoming Encounters Date Type Department Care Team (Late st Contact Info) Description 12/26/2024 9:30 AM CDT Office Visit [facility] Pain Management [place] [address] [facility] [address] [place] [address] Galina Lopez, ANGELA LOGGING TRACTOR OPERATOR SWAMP 1600 [facility] 101 [place], [place] [phone] documented as of this encounter Visit Diagnoses Not on filedocumented in this encounter Additional Health Concerns Assessment Noted Time PHQ-9 Depression Total Score: 6 08/02/20 10:51 AM ANTIQUE FURNITURE REPRODUCER documented as of this encounter Care Teams Tailor Men'S Ready To Wear Relationship Specialty Start Date End Date Wilber Mittal PCP - General 09/15/12 07/12/23 Mickey Mills MD [address] [place] [phone] PCP - General 07/13/23 Maxi Tate MD [address] [place] [address] Otolaryngology 10/31/16 Lela Zapata, RN Specialty Marble Finisher ENT-Otolaryngology 01/18/19 Mini Frazier MD [address] [place] [phone] Gastroenterology 08/05/19 Maxi Tate MD [address] [place] [address] [place] [address] Assigned Surgical Provider 06/08/20 documented as of this encounter
--- OUTSIDE RECORDS SUMMARY | 2024-11-29 17:12 | XMS_ITS | Encounter Summary ---
Author Organization [place] Address [address] [place] [address] Care Team Providers Care Component Assembler Name Role Phone Wilber Mittal Primary Care Provider [phone] Maix Tate MD Unavailable Lela Zapata RN Unavailable Unavailable Mini Frazier MD Unavailable [phone] Maxi Tate MD Unavailable [phone] Mickey Mills MD Primary Care Provider Encounter Details Date Type Department Care Team (Late st Contact Info) Description 04/26/2023 [facility] [place] [facility] [address] 4th [place] [address] Maxi Tate MD [address] [place] [address] Social History Tobacco Use Types Packs/Day [...] PM CDT Legal Sex Female 5:02 PM TEMPER MILL OPERATOR Gender Identity Female 10/22/2019 10:44 AM TEMPER MILL OPERATOR Sexual Orientation Straight 06/04/2019 11 :41 AM CDT COVID-19 Exposure Response Date Recorded In the last 10 days, have yo u been in contact with someone who was confirmed or suspected to have Coronavirus/COVID-19? Unable to assess 04/29/2023 9:32 AM CDT documented as of this encounter Plan of Treatment Upcoming Encounters Date Type Department Care Team (Late st Contact Info) Description 12/26/2024 9:30 AM CDT Office Visit [facility] Pain Management [place] [address] [facility] [address] [place] [address] Galina Lopez APRN ANIMAL GROOMER [address] [facility] 101 [place] [address] documented as of this encounter Visit Diagnoses Not on filedocumented in this encounter Additional Health Concerns Assessment Noted Time PHQ-9 Depression Total Score: 6 08/02/20 19 10:51 AM TEMPER MILL OPERATOR documented as of this encounter Care Teams Component Assembler Relationship Specialty Start Date End Date Wilber Mittal PCP - General 09/15/12 07/12/23 Mickey Mills MD [address] [place] [phone] PCP - General 07/13/23 Maxi Tate MD 420 [facility] 396 [place] [address] Otolaryngology 10/31/16 Lela Zapata, SHAREE Specialty Driver'S Education Instructor ENT-Otolaryngology 01/18/19 Mini Frazier MD [address] [place] [address] Gastroenterology 08/05/19 Maxi Tate MD [address] [place] [address] [phone] Assigned Surgical Provider 06/08/20 documented as of this encounter
--- OUTSIDE RECORDS SUMMARY | 2024-11-29 17:12 | XMS_ITS | Encounter Summary ---
Author Organization [facility] Address [address] [place] [address] Care Team Providers Care Aircraft Instrument Engineer Name Role Phone Maxi Tate MD Unavailable [phone] Lela Zapata RN Unavailable Unavailable Mini Frazier MD Unavailable [phone] Maxi Tate MD Unavailable [phone] Mickey Mills MD Primary Care Provider Reason for Visit * Reason Onset Date Comments Schedule Surgery 11/04/2024 Excision of Rig ht Tongue Lesion (Right) Encounter Details Date Type Department Care Team (Late st Contact Info) Description 11/04/2024 Telephone [facility] N[facility]at [facility] [address] [place] [address] Maxi Tate MD [address] [facility] [address] [place] [address] Schedule Surgery (Excision of Right Tongue Lesion (Right)/) Social History Tobacco Use Types Packs/Day Years [...] PM CDT Legal Sex Female 5:02 PM STEEP TENDER Gender Identity Female 10/22/2019 10:44 AM STEEP TENDER Sexual Orientation Straight 06/04/2019 11 :41 AM CDT documented as of this encounter Miscellaneous Notes * Telephone Encounter - Sharmin Hernandes - 11/04/2024 3:05 PM CDT Scheduled surgery with Dr. Tate on 11/21/2024 Did patient have any scheduling preferences? Not Specified Does patient want a sooner date? Not Specified Spoke with: Patient Surgery is located at [facility] Patient will be seen for their H&P by their PCP Mickey Mills MD within 30 days of surgery- Confirmed PCP on file is up to date Does patient need a consult before upcoming surgery? No Anesthesia type: General Requested Imaging required for surgery: No Patient is scheduled for their 1-2 week post op on 11/29/[address] Tate Patient will receive their surgery packet via [employer] per their preference Patient was not provided a start time for surgery & is aware they will receive this information3-5 days before surgery Additional comments: Patient was instructed to call back with any further questions or concerns. Sharmin Hernandes on 11/04/2024 at 3:05 PM documented in this encounter Plan of Treatment Upcoming Encounters Date Type Department Care Team (Late st Contact Info) Description 12/26/2024 9:30 AM CDT Office Visit [facility] Pain Management [address] [place] [address] Galina Lopez APRN FERRY TERMINAL AGENT [address] [facility] [address] [place] [address] documented as of this encounter Visit Diagnoses Not on filedocumented in this encounter Additional Health Concerns Assessment Noted Time PHQ-9 Depression Total Score: 8 08/23/19 25 12:02 PM STEEP TENDER documented as of this encounter Care Teams Aircraft Instrument Engineer Relationship Specialty Start Date End Date Mickey Mills MD [address] [place] [phone] PCP - General 07/13/23 Maxi Tate MD [address] [place] [phone] Otolaryngology 10/31/16 Lela Zapata, RN Specialty Cutter Plastics Rolls ENT-Otolaryngology 01/18/19 Mini Frazier MD [address] [place] [address] Gastroenterology 08/05/19 Maxi Tate MD [address] [place] [phone] Assigned Surgical Provider 06/08/20 documented as of this encounter
--- OUTSIDE RECORDS SUMMARY | 2024-11-29 17:12 | XMS_ITS | Encounter Summary ---
Author Organization [facility] Address [address] [place] [address]. [place] [address] Care Team Providers Care Food And Beverage Intern Name Role Phone Maxi Tate MD Unavailable [phone] Lela Zapata RN Unavailable Unavailable Mini Frazier MD Unavailable [phone] Maxi Tate MD Unavailable [phone] Mickey Mills MD Primary Care Provider Encounter Details Date Type Department Care Team (Latest Contact Info) Description 10/31/2024 Travel Social History Tobacco Use Types Packs/Day [...] CDT Legal Sex Female 5:02 PM SUPERVISOR MOLD SHOP Gender Identity Female 10/22/2019 10:44 AM SUPERVISOR MOLD SHOP Sexual Orientation Straight 06/04/2019 11 :41 AM CDT documented as of this encounter Plan of Treatment Upcoming Encounters Date Type Department Care Team (Late st Contact Info) Description 12/26/2024 9:30 AM CDT Office Visit [facility] Pain Management [place] [id number] [place] [address] [address] [place] [address] Galina Lopez, [facility] SALES CONSULTANT [address] [facility] [address] [place] [address] documented as of this encounter Visit Diagnoses Not on filedocumented in this encounter Additional Health Concerns Assessment Noted Time PHQ-9 Depression Total Score: 8 08/23/19 25 12:02 PM SUPERVISOR MOLD SHOP documented as of this encounter Care Teams Food And Beverage Intern Relationship Specialty Start Date End Date Mcikey Mills MD [address] [place] [phone] PCP - General 07/13/23 Maxi Tate MD [address] [place] [address] Otolaryngology 10/31/16 Lela Zapata, RN Specialty Career Development Coordinator ENT-Otolaryngology 01/18/19 Mini Frazier MD [address] [place] [address] [phone] Gastroenterology 08/05/19 Maxi Tate MD [address] [phone] Assigned Surgical Provider 06/08/20 documented as of this encounter
--- OUTSIDE RECORDS SUMMARY | 2024-11-29 17:12 | XMS_ITS | Encounter Summary ---
Author Organization [facility] Address [address] [place] [address]. [place] [address] Care Team Providers Care Water Use Inspector Name Role Phone Maxi Tate MD Unavailable [phone] Lela Zapata RN Unavailable Unavailable Mini Frazier MD Unavailable [phone] Maxi Tate MD Unavailable [phone] Mickey Mills MD Primary Care Provider Encounter Details Date Type Department Care Team (Late st Contact Info) Description 11/14/2024 MyC Medical Advice [facility] Nose and Throat Clinic [address] [place] [address] Maxi Tate MD [address] [facility] [address] [place] [address] Social History Tobacco Use Types [...] CDT Legal Sex Female 5:02 PM SUPERVISOR COMMUNICATIONS AND SIGNALS Gender Identity Female 10/22/2019 10:44 AM SUPERVISOR COMMUNICATIONS AND SIGNALS Sexual Orientation Straight 06/04/2019 11 :41 AM CDT documented as of this encounter Miscellaneous Notes * Telephone Encounter - Luzma August - 11/15/2024 2:48 PM CDT Called patient to review symptoms and questions. Please see telephone encoutner for further details. Luzma ALVARADO, RN documented in this encounter Plan of Treatment Upcoming Encounters Date Type Department Care Team (Late st Contact Info) Description 12/26/2024 9:30 AM CDT Office Visit [facility] Pain Management [address] [place] [address] Galina Lopez APRN CORPORATE LAWYER [address] [facility] [address] [place] [address] documented as of this encounter Visit Diagnoses Not on filedocumented in this encounter Additional Health Concerns Assessment Noted Time PHQ-9 Depression Total Score: 8 08/23/19 25 12:02 PM SUPERVISOR COMMUNICATIONS AND SIGNALS documented as of this encounter Care Teams Water Use Inspector Relationship Specialty Start Date End Date Mickey Mills MD [address] [place] [address] [place] [phone] PCP - General 07/13/23 Maxi Tate MD [address] [place] [address] Otolaryngology 10/31/16 Lela Zapata, RN Specialty Credit Products Officer ENT-Otolaryngology 01/18/19 Mini Frazier MD [address] [place] [address] [phone] Gastroenterology 08/05/19 Maxi Tate MD [address] [place] [phone] Assigned Surgical Provider 06/08/20 documented as of this encounter
--- OUTSIDE RECORDS SUMMARY | 2024-11-29 17:12 | XMS_ITS | Encounter Summary ---
Author Organization [facility] Address [address] [place] [address] Care Team Providers Care Medical Registrar Name Role Phone Maxi Tate MD Unavailable [phone] Lela Zapata RN Unavailable Unavailable Mini Frazier MD Unavailable [phone] Maxi Tate MD Unavailable [phone] Mickey Mills MD Primary Care Provider [phone] Reason for Visit * Auth/Cert Specialty Diagnoses / Procedures Referred By Contac t Referred To Contact Surgery Diagnoses Lesion of tongue Lesion of tongue [K14.8] Procedures IA EXCISION LESION MOUTH W/O REPAIR IA EXCISION LESION MOUTH W SIMPLE REPAIR IA EXCIS MOUTH MUCOSA/SUB,COMPLX REPR IA EXCIS MOUTH COMPLEX,EXC THRU MUSCLE IA EXC LESION OF TONGUE W/O CLOSURE IA EXCISION LESION TONGUE W/CLOSURE, ANT 2/3 IA EXCIS TONGUE LESN,POST 1/3 IA EXCIS TONGUE LESN,LOCAL FLAP IA EXCIS FLOOR MOUTH LESION IA EXCIS DENTOALVEOLAR LESION IA EXCIS DENTOALV LESN,SIMPL REPR IA EXCIS DENTOALV LESN,COMPLX REPR IA EXCISION LESION, PALATE/UVULA W/O CLOSURE IA EXCIS LESN,PALATE/UVULA-SIMPL CLOS ZZC EXCIS LESN,PALETE/UVULA-FLAP CLOS Excision of Right Tongue Lesion [address] [place] [address] Phone: tel: fax: Referral ID Status Reason Start Date Expiration Date Visits Re quested Visits Authorized [id number] 1 1 Encounter Details Date Type Department Care Team (Late st Contact Info) Description 11/21/2024 7:29 AM CDT Anesthesia Event [facility] [address] [place] [phone] Mando Martínez MD [address] [place], [place] [phone] Tamiko Holden MD [address] [place], [place] [phone] Anesthesia Record Procedure Summary Procedure Name Responsible Anesthesiologist Anesthesia Start Time Anesthesia Stop Time Excision of Right Tongue Lesion (Right: Mouth) Mando Martínez MD 11/21/24 0729 11/21/24 0854 Events Date Time Event Comment 11/21/2024 0729 An Start Anesthesia Star t is defined as when the anesthesia provider assumed care, began anesthesia prep, remained continuously present with the patient, and excludes all time for performing the pre-anesthesia evaluation. The Pre-Anesthesia Evaluation was completed before Anesthesia Start. 0739 An Start Data 0741 AN REASSESS I attest that I have identified and re-evaluated the patient immediately before the induction of anesthesia and I am satisfied that the anesthetic plan is suitable for the patient's condition and procedure. The first vital signs recorded are pre-induction. Mando Martínez MD 0745 An Induction 0756 An Intubation 0759 Anesthesia Ready for Procedu re 0809 AN INCISION 0809 Quick Note Local with epi by surgeon 0836 AN Extubation All extubation criteria met prior to removal. 0837 an stop data 0854 An Stop Electronically signed by Justice Bull APRN CRNA on November 21, 2024 8:54 AM Meds Name Total dexAMETHasone PF (DECADRON) injection 10 mg 10 mg midazolam 1 mg/mL 1 mg fentaNYL 50 mcg/mL 100 mcg lidocaine 2% 100 mg propofol 10 mg/mL 100 mg propofol drip mcg/kg/min 181 mg ketamine 10 mg/mL 50 mg rocuronium 10 mg/mL 50 mg phenylephrine (GALE-SYNEPHRINE) injection 100 mcg ondansetron 2 mg/mL 4 mg sugammadex (BRIDION) 200mg/2mL 100 mg dexmedeTOMIDine (PRECEDEX) bolus 200 mcg 16 mcg fosaprepitant (EMEND) 150 mg in sodium chloride 0.9 % 275 mL intermittent infusion 150 mg methadone (DOLOPHINE) injection 7.24 mg 7.24 mg esmolol 10 mg/mL 50 mg LR 500 mL * Agents Name O2 N2O Air Exp Sevoflurane Exp Isoflurane Exp Desflurane Ins Sevoflurane Ins Isoflurane Ins Desflurane * Blood No blood administrations on file. Lines, Drains, and Airways Type Details Placement Removal Incision/Surgical Site Incision; 5; 0831; Right, Distal; Tongue; closed with suture 11/21/24 0831 by Mike Cheney, RN ETT Placement Date: 11/21/24; Placement Time: 0756 (created via procedure documentation); Mask Ventilation: 1; Induction Type: Intravenous; Ease of Intubation: Easy; Technique: Direct laryngoscopy; Tube Size: 7 mm; DL Blade Size: Rosales 2; Grade View: 1; Adjucts: Stylet; Placement Person: FORESTRY TECHNICIAN; Attempts: 1 11/21/24 0756 by Justice Bull APRN FORESTRY TECHNICIAN 11/21/24 0836 by Justice Bull APRN CRNA Peripheral IV 11/21/24; 0756; 20 G ; Right; Wrist; Alcohol 11/21/24 0756 by Justice Bull APRN CRNA 11/21/24 1424 by Juanita Anaya RN documented in this encounter Social History Tobacco [...] PM CDT Legal Sex Female 5:02 PM SHINGLE SAWYER Gender Identity Female 10/22/2019 10:44 AM SHINGLE SAWYER Sexual Orientation Straight 06/04/2019 11 :41 AM CDT documented as of this encounter OR Notes * Anesthesia Postprocedure Evaluation - Mando Martínez MD - 11/21/2024 9:16 AM CDT Patient: Kelly Langley Procedure: Procedure(s): Excision of Right Tongue Lesion Anesthesia Type: General Note: Disposition: Inpatient Postop Pain Control: Uneventful Sign Out: Well controlled pain PONV: No Neuro/Psych: Uneventful Sign Out: Acceptable/Baseline neuro status Airway/Respiratory: Uneventful Sign Out: Acceptable/Baseline resp. status CV/Hemodynamics: Uneventful Sign Out: Acceptable CV status Other NRE: NONE DID A NON-ROUTINE EVENT OCCUR? No Last vitals: Vitals Value Taken Time BP 118/87 11/21/24 0900 Temp 34.5 ??C (94.1 ??F) 11/21/24 0845 Pulse 76 11/21/24 0915 Resp 10 11/21/24 0915 SpO2 99 % 11/21/24 0915 Vitals shown include unfiled device data. Electronically Signed By: Mando Martínez MD November 21, 2024 9:16 AM * Anesthesia Procedure Notes - Justice Bull APRN FORESTRY TECHNICIAN - 11/21/2024 8:07 AM CDTAssociated Order(s): Airway Airway Patient location during procedure: OR Procedure Start/Stop Times: 11/21/2024 7:56 AM Staff - FORESTRY TECHNICIAN: Justice Bull APRN FORESTRY TECHNICIAN Performed By: FORESTRY TECHNICIAN Consent for Airway Urgency: elective Indications and [...] Administered Medication Administration Time: 11/21/2024 7:56 AM * Anesthesia Preprocedure Evaluation - Mando Martínez MD - 11/21/2024 7:25 AM CDT Anesthesia Pre-Procedure Evaluation Patient: Kelly Langley : 1955 Procedure : Procedure(s): Excision of Right Tongue Lesion Past Medical History: Diagnosis Date Allergic rhinitis 4 years old Arthritis 1985 hands Cancer (H) 07/2012` This is a tumor recheck Chronic diarrhea since 06/2019 Chronic sinusitis 10 yrs allergies Complication of anesthesia paralyzes my bladder muscles patient states in the past she's had a difficult time urinating after surgery Conductive hearing loss 20 years preogressing Depressive disorder 9 yrs Esophageal reflux 5 years taking omeprozole Fracture December 2014 Broken foot Gastro-oesophageal reflux disease now and then Hearing problem 1996 hearing loss in left ear History of colonic polyps 2012 removed during colonoscopy - no recurrance Hypertension have had high pressure recently Other chronic pain On my tongue Pneumonia 06/2018 Recurrent otitis media 45 yrs hearing loss - james prevalent in past 90 days Reduced vision 7 years old near sighted - experiencing floaters now and then Sleep apnea 10/27/2012 after tongue surgery Thyroid disease Tinnitus regularly Uncomplicated asthma allergic asthma Past Surgical History: Procedure Laterality Date ABDOMEN SURGERY BIOPSY TONGUE Right 07/02/2020 Procedure: Directed biopsy of right tongue; Surgeon: Maxi Tate MD; Location: [facility] OR BIOPSY TONGUE Right 11/17/2022 Procedure: Excision of right tongue lesion; Surgeon: Maxi Tate MD; Location: [facility] OR BIOPSY TONGUE N/A 09/14/2023 Procedure: Excison of Right Tongue Lesion; Surgeon: Maxi Tate MD; Location: [facility] OR BIOPSY TONGUE N/A 08/01/2024 Procedure: Excision of Tongue Lesions (x4); Surgeon: Maxi Tate MD; Location: [facility] OR BREAST SURGERY benign lumpectomy COLONOSCOPY 2012 and 2014 2012 removed benign polyp - 2014 no issues ENT SURGERY 10/27/12 removal of tongue tumor EXCISE LESION INTRAORAL Bilateral 01/20/2022 Procedure: EXCISION, LESION, MOUTH BILATERAL; Surgeon: Maxi Tate MD; Location: [facility] OR EXCISE LESION INTRAORAL N/A 03/03/2022 Procedure: wide local excision of tongue lesions; Surgeon: Maxi Tate MD; Location: [facility] EXCISE LESION INTRAORAL Left 02/15/2024 Procedure: Excision of Left Tongue Lesion (x2); Surgeon: Maxi Tate MD; Location: [facility] OR EXCISION TONGUE Right 06/06/2019 Procedure: Right Partial Glossectomy; Surgeon: Maxi Tate MD; [facility] GLOSSE[facility] 10/27/2012 Procedure: GLOSSECTOMY PARTIAL; right partial glossectomy; Surgeon: Maxi Tate MD; Location: [facility] OR FIRE CREW WORKER SURGERY tubal and cyst removed from ovary Allergies Allergen Reactions Ether Other (See Comments) Shuts her bladder down as well as paralyzes her. Warfarin Swelling Tongue swells Mold Other (See Comments) Other [No Clinical Screening - See Comments] Hay faver Pollen Extract Other reaction(s): Other (see comments) Scopolamine Nausea Increases nausea. Seasonal Allergies Social History Tobacco Use Smoking status: Former Current packs/day: 0.00 Average packs/day: 0.5 packs/day for 40.0 years (20.0 ttl pk-yrs) Types: Cigarettes Start date: 10/27/1972 Quit date: 10/27/2012 Years since quittin.0 Smokeless tobacco: Never Substance Use Topics Alcohol use: Yes Comment: once a week Wt Readings from Last 1 Encounters: 11/21/24 72.4 kg (159 lb 9.8 oz) Anesthesia Evaluation Pt has had prior anesthetic. Type: General and MAC. ROS/MED HX ENT/Pulmonary: (+) asthma Neurologic: - neg neurologic ROS Cardiovascular: (+) hypertension- - - - - METS/Exercise Tolerance: Hematologic: Musculoskeletal: GI/Hepatic: (+) GERD, Renal/Genitourinary: - neg Renal ROS Endo: (+) thyroid problem, hypothyroidism, Psychiatric/Substance Use: Infectious Disease: - neg infectious disease ROS Malignancy: Comment: tounge (+) Malignancy, Other: (+) , H/O Chronic Pain (takes 6 - 8 oxycodone 5mg / day), Physical Exam Airway airway exam normal Mallampati: II TM distance: > 3 FB Neck ROM: full Mouth opening: > 3 cm Respiratory Devices and Support Dental (+) Multiple visibly decayed, broken teeth Cardiovascular cardiovascular exam normal Rhythm and rate: regular and normal Pulmonary pulmonary exam normal OUTSIDE LABS: CBC: Lab Results Component Value Date WBC 8.0 11/24/2018 WBC 6.9 04/02/2017 HGB 14.5 11/24/2018 HGB 13.4 04/02/2017 HCT 46.2 11/24/2018 HCT 41.7 04/02/2017 PLT 416 11/24/2018 PLT 357 04/02/2017 BMP: Lab Results Component Value Date NA 138 11/24/2018 NA 139 04/02/2017 POTASSIUM 4.4 11/24/2018 POTASSIUM 4.2 04/02/2017 CHLORIDE 105 11/24/2018 CHLORIDE 104 04/02/2017 CO2 26 11/24/2018 CO2 24 04/02/2017 BUN 14 11/24/2018 BUN 15 04/02/2017 CR 0.83 11/24/2018 CR 0.87 04/02/2017 GLC 82 11/24/2018 GLC 91 04/02/2017 COAGS: No results found for: PTT, INR, FIBR POC: No results found for: BGM, HCG, HCGS HEPATIC: Lab Results Component Value Date ALBUMIN 3.7 11/24/2018 PROTTOTAL 7.7 11/24/2018 ALT 22 11/24/2018 AST 18 11/24/2018 ALKPHOS 98 11/24/2018 BILITOTAL 0.4 11/24/2018 OTHER: Lab Results Component Value Date A1C 5.5 04/02/2017 AJ 9.9 11/24/2018 Anesthesia Plan ASA Status: 3 NPO Status: NPO Appropriate Anesthesia Type: General. - Airway: ETT Induction: Intravenous. Maintenance: TIVA. Consents Anesthesia Plan(s) and associated risks, benefits, and realistic alternatives discussed. Questions answered and patient/veterans contact representative(s) expressed understanding. - Discussed: Risks, Benefits and Alternatives for BOTH SEDATION and the PROCEDURE were discussed - Discussed with: Patient, Spouse - Extended Intubation/Ventilatory Support Discussed: Yes. Postoperative Care Pain management: IV analgesics. PONV prophylaxis: Ondansetron (or other 5HT-3), Aprepitant, Background Propofol Infusion Comments: Mando Martínez MD Clinically Significant Risk Factors Present on Admission # Drug Induced Coagulation Defect: home medication list includes an anticoagulant medication # Hypertension: Home medication list includes antihypertensive(s) # Overweight: Estimated body mass index is 27.4 kg/m?? as calculated from the following: Height as of this encounter: 1.626 m (5' 4). Weight as of this encounter: 72.4 kg (159 lb 9.8 oz). documented in this encounter Miscellaneous Notes * Anesthesia Care Transfer Note - Justice Bull APRN FORESTRY TECHNICIAN - 11/21/2024 8:54 AM CDT Patient: Kelly Langley Procedure: Procedure(s): Excision of Right Tongue Lesion Diagnosis: Lesion of tongue [K14.8] Diagnosis Additional Information: No value filed. Anesthesia Type: General Note: Oropharynx: oropharynx clear of all foreign objects and spontaneously breathing Level of Consciousness: awake Oxygen Supplementation: nasal cannula Level of Supplemental Oxygen (L/min / FiO2): 4 Independent Airway: airway patency satisfactory and stable Dentition: dentition unchanged Vital Signs Stable: post-procedure vital signs reviewed and stable Report to RN Given: handoff report given Patient transferred to: PACU Handoff Report: Identifed the Patient, Identified the Reponsible Provider, Reviewed the pertinent medical history, Discussed the surgical course, Reviewed Intra-OP anesthesia mangement and issues during anesthesia, Set expectations for post-procedure period and Allowed opportunity for questions andacknowledgement of understanding Vitals: Vitals Value Taken Time BP 171/84 11/21/24 0845 Temp Pulse 73 11/21/24 0853 Resp 14 11/21/24 0853 SpO2 99 % 11/21/24 0853 Vitals shown include unfiled device data. Electronically Signed By: Justice Bull APRN CRNA November 21, 2024 8:54 AM documented in this encounter Plan of Treatment Upcoming Encounters Date Type Department Care Team (Late st Contact Info) Description 12/26/2024 9:30 AM CDT Office Visit [facility] [place] [id number] [place] [address] [address] [place] [address] Galina Lopez APRN SOAP MAKER [address] [facility] [address] [place] [address] documented as of this encounter Procedures Procedure Name Priority Date/Time Associated Diagnosis Comments ANE AIRWAY ETT PERFORMABLE Routine 11/21/2024 7:56 AM CDT documented in this encounter Results * ANE AIRWAY ETT PERFORMABLE (11/21/2024 7:56 AM CDT) Narrative Justice Bull APRN CRNA - 11/21/2024 7:56 AM CDT Justice Bull APRN CRNA 11/21/2024 8:07 AM Airway Patient location during procedure: OR Procedure Start/Stop Times: 11/21/2024 7:56 AM Staff - FORESTRY TECHNICIAN: Justice Bull APRN CRNA Performed By: FORESTRY TECHNICIAN Consent for Airway Urgency: elective Indications and [...] Administered Medication Administration Time: 11/21/2024 7:56 AM Mando Martínez MD IA ANESTHESIA Final Result documented in this encounter Visit Diagnoses Not on filedocumented in this encounter Administered Medications Inactive Administered Medications - up to 3 most recent administrations Medication Order MAR Action Action Date Dose Rate Site dexAMETHasone PF (DECADRON) injection 10 mg 10 mg, Intravenous, ONCE, Administer over 1 Minutes, On Thu11/21/24 at 0600, For 1 dose, Give dose upon induction., Pre-procedure $Given 11/21/2024 7:59 AM CDT 10 mg dexmedeTOMIDine (PRECEDEX) bolus 200 mcg Intravenous, CONTINUOUS PRN, Starting on Thu11/21/24 at 0748, Anesthesia Intra-op $Bolus 11/21/2024 8:48 AM CDT 12 mcg $New Bag 11/21/2024 7:48 AM CDT 4 mcg esmolol (BREVIBLOC) injection Intravenous, PRN, Starting on Thu11/21/24 at 0812, Anesthesia Intra-op $Given 11/21/2024 8:50 AM CDT 20 mg $Given 11/21/2024 8:12 AM CDT 30 mg fentaNYL (PF) (SUBLIMAZE) injection Intravenous, PRN, Administer over 3-5 Minutes, Starting on Thu11/21/24 at 0745, Anesthesia Intra-op $Given 11/21/2024 7:45 AM CDT 100 mcg fosaprepitant (EMEND) 150 mg in sodium chloride 0.9 % 275 mL intermittent infusion 150 mg, Intravenous, ONCE, On Thu11/21/24 at 0800, For 1 dose, Administer over 20 Minutes, Intra-procedure $New Bag 11/21/2024 7:59 AM CDT 150 mg ketamine (KETALAR) injection Intravenous, PRN, Administer over 2-5 Minutes, Starting on Thu11/21/24 at 0748, Anesthesia Intra-op $Given 11/21/2024 7:48 AM CDT 50 mg lactated ringers infusion Intravenous, CONTINUOUS PRN, Anesthesia Intra-op, Starting on Thu11/21/24 at 0739, Until Thu11/21/24 at 0854 $New Bag 11/21/2024 7:39 AM CDT lidocaine 2% injection (MDV) Intravenous, PRN, Starting on Thu11/21/24 at 0745, Anesthesia Intra-op $Given 11/21/2024 7:45 AM CDT 100 mg methadone (DOLOPHINE) injection 7.24 mg 7.24 mg (0.1 mg/kg 72.4 kg), Intravenous, ONCE, On Thu11/21/24 at 0800, For 1 dose, Anesthesia Intra-op, Indication: Pain Management $Given 11/21/2024 7:59 AM CDT 7.24 mg midazolam (VERSED) injection Intravenous, Administer over 2 Minutes, PRN, Starting on Thu11/21/24 at 0758, Anesthesia Intra-op $Given 11/21/2024 7:58 AM CDT 1 mg ondansetron (ZOFRAN) injection Intravenous, PRN, Administer over 2-5 Minutes, Starting on Thu11/21/24 at 0821, Anesthesia Intra-op $Given 11/21/2024 8:21 AM CDT 4 mg phenylephrine (GALE-SYNEPHRINE) injection Intravenous, CONTINUOUS PRN, Starting on Thu11/21/24 at 0748, Anesthesia Intra-op $New Bag 11/21/2024 7:48 AM CDT 100 mcg propofol (DIPRIVAN) infusion Intravenous, CONTINUOUS PRN, Starting on Thu11/21/24 at 0801, Anesthesia Intra-op $New Bag 11/21/2024 8:01 AM CDT 100 mcg/kg/min 43.44 mL/hr propofol (DIPRIVAN) injection 10 mg/mL vial Intravenous, PRN, Starting on Thu11/21/24 at 0748, Anesthesia Intra-op $Given 11/21/2024 7:48 AM CDT 100 mg rocuronium injection Intravenous, PRN, Starting on Thu11/21/24 at 0749, Anesthesia Intra-op $Given 11/21/2024 7:49 AM CDT 50 mg sugammadex (BRIDION) injection Intravenous, PRN, Starting on Thu11/21/24 at 0829, Anesthesia Intra-op $Given 11/21/2024 8:29 AM CDT 100 mg documented in this encounter Additional Health Concerns Assessment Noted Time PHQ-9 Depression Total Score: 8 08/23/19 25 12:02 PM SHINGLE SAWYER documented as of this encounter Care Teams Medical Registrar Relationship Specialty Start Date End Date Mickey Mills MD [address] [place], [place] [address], [place] [phone] PCP - General 07/13/23 Maxi Tate MD [address] [address] Otolaryngology 10/31/16 Lela Zapata, SHAREE Specialty Creative Assistant ENT-Otolaryngology 01/18/19 Mini Frazier MD [address] [place] [phone] Gastroenterology 08/05/19 Maxi Tate MD [address] [place] [address] [phone] Assigned Surgical Provider 06/08/20 documented as of this encounter
--- OUTSIDE RECORDS SUMMARY | 2024-11-29 17:12 | XMS_ITS | Encounter Summary ---
Author Organization [facility] Address [address] [place] [address]. [place] [address] Care Team Providers Care Relief Charge Nurse Name Role Phone Maxi Tate MD Unavailable Lela Zapata RN Unavailable Unavailable Mini Frazier MD Unavailable [phone] Maxi Tate MD Unavailable [phone] Mickey Mills MD Primary Care Provider Encounter Details Date Type Department Care Team (Latest Contact Info) Description 11/01/2024 Travel Social History Tobacco Use Types Packs/Day [...] PM CDT Legal Sex Female 5:02 PM WELLNESS PROGRAM MANAGER Gender Identity Female 10/22/2019 10:44 AM WELLNESS PROGRAM MANAGER Sexual Orientation Straight 06/04/2019 11 :41 AM CDT documented as of this encounter Plan of Treatment Upcoming Encounters Date Type Department Care Team (Late st Contact Info) Description 12/26/2024 9:30 AM CDT Office Visit [facility] [place] [address] [place] [address] [address] [place] [address] Galina Lopez, ANGELA CONFERENCE RESERVATIONIST [address] [facility] [address] [place] [address] documented as of this encounter Visit Diagnoses Not on filedocumented in this encounter Additional Health Concerns Assessment Noted Time PHQ-9 Depression Total Score: 8 08/23/19 25 12:02 PM WELLNESS PROGRAM MANAGER documented as of this encounter Care Teams Relief Charge Nurse Relationship Specialty Start Date End Date Mickey Mills MD [address] [place] [phone] PCP - General 07/13/23 Maxi Tate MD [address] [place] [address] Otolaryngology 10/31/16 Lela Zapata, RN Specialty Shafting Worker ENT-Otolaryngology 01/18/19 Mini Frazier MD [address] [place] [address] [phone] Gastroenterology 08/05/19 Maxi Tate MD [address] [phone] Assigned Surgical Provider 06/08/20 documented as of this encounter
--- OUTSIDE RECORDS SUMMARY | 2024-11-29 17:12 | XMS_ITS | Encounter Summary ---
Author Organization [facility] Address [address] [place] [address] Care Team Providers Care Acidizer Water Well Name Role Phone Maxi Tate MD Unavailable [phone] Lela Zapata RN Unavailable Unavailable Mini Frazier MD Unavailable [phone] Maxi Tate MD Unavailable [phone] Mickey Mills MD Primary Care Provider [phone] Reason for Visit * Auth/Cert Specialty Diagnoses / Procedures Referred By Contac t Referred To Contact Surgery Diagnoses Lesion of tongue Lesion of tongue [K14.8] Procedures MS EXCISION LESION MOUTH W/O REPAIR MS EXCISION LESION MOUTH W SIMPLE REPAIR MS EXCIS MOUTH MUCOSA/SUB,COMPLX REPR MS EXCIS MOUTH COMPLEX,EXC THRU MUSCLE MS EXC LESION OF TONGUE W/O CLOSURE MS EXCISION LESION TONGUE W/CLOSURE, ANT 2/3 MS EXCIS TONGUE LESN,POST 1/3 MS EXCIS TONGUE LESN,LOCAL FLAP MS EXCIS FLOOR MOUTH LESION MS EXCIS DENTOALVEOLAR LESION MS EXCIS DENTOALV LESN,SIMPL REPR MS EXCIS DENTOALV LESN,COMPLX REPR MS EXCISION LESION, PALATE/UVULA W/O CLOSURE MS EXCIS LESN,PALATE/UVULA-SIMPL CLOS ZZC EXCIS LESN,PALETE/UVULA-FLAP CLOS Excision of Right Tongue Lesion [address]th [place] [address] Phone: tel: fax: Referral ID Status Reason Start Date Expiration Date Visits Re quested Visits Authorized [id number] 1 1 Encounter Details Date Type Department Care Team (Latest Contact Info) Description 11/21/2024 5:03 AM CDT - 11/21/2024 11:59 PM CDT Hospital Encounter [facility] Same Day Surgery [place] [address] [place] [phone] Maxi Tate MD [address] [facility] 396 [place] [address] Lesion of tongue (Primary Dx) Discharge Disposition: Home or Self Care Social History Tobacco Use Types Packs/Day Years [...] PM CDT Legal Sex Female 5:02 PM PICTURE FRAME MAKER Gender Identity Female 10/22/2019 10:44 AM PICTURE FRAME MAKER Sexual Orientation Straight 06/04/2019 11 :41 AM [...] - To contact a doctor, call Dr Tate's at the Otolaryngology/ENT clinic @ [phone] or: [phone] and ask for the resident personnel assistant for ENT- Otolaryngology (answered 24 hours a day) Emergency Department: [facility]: [phone] if you are in need of immediate [...] of this encounter Nursing Notes * Dulce Rich, SHAREE - 11/21/2024 5:41 AM CDT Page sent to otolaryngology personnel assistant: Antonio Kelly Langley in PACU does not have pre-op orders. Dulce Rich RN [phone]. documented in this encounter Miscellaneous Notes * Brief Op Note - Shreya Mayes MD - 11/21/2024 8:39 AM CDT [facility] Brief Operative Note Pre-operative diagnosis: Lesion of [...] and benefits were discussed with the consenting republican and they elected to proceed with the procedure. Description of Procedure: The patient was brought to the operating room and placed in supine position on the operating table. General anesthesia was induced and all appropriate monitoring lines were placed. The patient was prepped and draped in the usual fashion. A mouth air defense artillery senior sergeant was placed. The lesion was marked and [...] Description 12/26/2024 9:30 AM CDT Office Visit [facility] Pain Management [place] [id number] [place] [address] [address] [place] [address] Galina Lopez APRN COMPUTER SUPPORT ANALYST 1600 [facility] 101 [place], [place] [phone] documented as of this encounter Procedures Procedure [...] CDT) Case Report Surgical Pathology Report Case: [id number] Authorizing Provider: Maxi Tate MD Collected: 11/21/2024 [...] Findings: Proliferative verrucous leukoplakia type lesions Comment(s): Search Marketing Analyst blocks are A4 and A5. 11/28/2024 11:59 [...] in 1 cassette 11/28/2024 11:59 AM T U LABORATORY Microscopic Description Microscopic examination has been performed. Search Marketing Analyst blocks are A4 and A5. I have personally reviewed all specimens and or slides, including the listed special stains, and used them with my medical judgement to determine the final diagnosis. 11/28/2024 11:59 AM T SPECIALTY LABS MCRS Yes(A) N/A 11/28/2024 11:59 AM T SPECIALTY [facility] Performing Labs The technical component of this testing was completed at [facility]. Stain controls for all stains [...] us Maxi Tate MD LAB - JESSICA AP Final Res ult SPECIALTY LABS Specialty Lab 500 [facility], [address] [id number] [place] Core Lab 500 [facility], Room [address] [phone] documented in this encounter Visit Diagnoses Diagnosis [...] $Given 11/21/2024 11:31 AM CDT 2.5 mLs naloxone (NARCAN) injection 0.1 mg 0.1 mg, [...] 1 dose, Give dose upon induction., Pre-procedure 075 ($Given - Provi sam: Justice Bull, SALES DEVELOPMENT EXECUTIVE SEARCH LEAD) fosaprepitant (EMEND) 150 mg in sodium chloride [...] Total Score: 8 08/23/19 25 12:02 PM PICTURE FRAME MAKER documented as of this encounter Care Teams Acidizer Water Well Relationship Specialty Start Date End Date Mickey Mills MD [address] [place] [phone] PCP - General 07/13/23 Maxi Tate MD [address] [address] Otolaryngology 10/31/16 Lela Zapata, RN Specialty Cafe Site Attendant ENT-Otolaryngology 01/18/19 Mini Frazier MD [address] [place] [address] Gastroenterology 08/05/19 Maxi Tate MD [address] [place] [address] Assigned Surgical Provider 06/08/20 documented as of this encounter
--- OUTSIDE RECORDS SUMMARY | 2024-11-29 17:12 | XMS_ITS | Encounter Summary ---
Author Organization [facility] Address [address] [place] [address]. [place] [address] Care Team Providers Care Dice Maker Name Role Phone Maxi Tate MD Unavailable [phone] Lela Zapata RN Unavailable Unavailable Mini Frazier MD Unavailable [phone] Maxi Tate MD Unavailable [phone] Mickey Mills MD Primary Care Provider Encounter Details Date Type Department Care Team (Late st Contact Info) Description 11/15/2024 Orders Only [facility] Th[facility] [place] [id number] [facility] [address] 4th [place] [address] Maxi Tate MD 420 [facility] 396 [place] [address] Lesion of tongue (Primary Dx) [...] PM CDT Legal Sex Female 5:02 PM ENTRY LEVEL ACCOUNTING CLERK Gender Identity Female 10/22/2019 10:44 AM ENTRY LEVEL ACCOUNTING CLERK Sexual Orientation Straight 06/04/2019 11 :41 AM CDT documented as of this encounter Plan of Treatment Upcoming Encounters Date Type Department Care Team (Late st Contact Info) Description 12/26/2024 9:30 AM CDT Office Visit [facility] Pain Management [place] [address] [facility] [address] [place] [address] Galina Lopez APRN SATELLITE DISH TECHNICIAN [address] [facility] 101 [place] [address] documented as of this encounter Visit Diagnoses Diagnosis Lesion of tongue- Primary Other specified conditions of the tongue documented in this encounter Additional Health Concerns Assessment Noted Time PHQ-9 Depression Total Score: 8 08/23/19 25 12:02 PM ENTRY LEVEL ACCOUNTING CLERK documented as of this encounter Care Teams Dice Maker Relationship Specialty Start Date End Date Mickey Mills MD [address] [place] [phone] PCP - General 07/13/23 Maxi Tate MD [address] [place] [address] 396 [place] [address] Otolaryngology 10/31/16 Lela Zapata, SHAREE Specialty Livestock Broker ENT-Otolaryngology 01/18/19 Mini Frazier MD 909 [place], [place] [address] Gastroenterology 08/05/19 Maxi Tate MD 420 [facility] 396 [place], [place] [phone] Assigned Surgical Provider 06/08/20 documented as of this encounter
--- OUTSIDE RECORDS SUMMARY | 2024-11-29 17:12 | XMS_ITS | Encounter Summary ---
Author Organization [facility] Address formerly [facility]0 [facility] [place] [address] Care Team Providers Care Finished Yarn Examiner Name Role Phone Maxi Tate MD Unavailable [phone] Lela Zapata RN Unavailable Unavailable Mini Frazier MD Unavailable [phone] Maxi Tate MD Unavailable [phone] Mickey Mills MD Primary Care Provider Encounter Details Date Type Department Care Team (Late st Contact Info) Description 11/04/2024 [facility] Medical Advice [facility] [address] 4th [place] [address] Sharmin Hernandes Social History Tobacco [...] PM CDT Legal Sex Female 5:02 PM TECHNICIAN AUTOMATIC Gender Identity Female 10/22/2019 10:44 AM TECHNICIAN AUTOMATIC Sexual Orientation Straight 06/04/2019 11 :41 AM CDT documented as of this encounter Plan of Treatment Upcoming Encounters Date Type Department Care Team (Late st Contact Info) Description 12/26/2024 9:30 AM CDT Office Visit [facility] Pain Management [place] [address] [place] [address] [address] [place] [address] Galina Lopez APRN OTC CLERK 1600 [facility] 101 [place], [place] [phone] documented as of this encounter Visit Diagnoses Not on filedocumented in this encounter Additional Health Concerns Assessment Noted Time PHQ-9 Depression Total Score: 8 08/23/19 25 12:02 PM TECHNICIAN AUTOMATIC documented as of this encounter Care Teams Finished Yarn Examiner Relationship Specialty Start Date End Date Mickey Mills MD 300 [place] [phone] PCP - General 07/13/23 Maxi Tate MD [address] [place] [phone] Otolaryngology 10/31/16 Lela Zapata, SHAREE Specialty Director Advanced ENT-Otolaryngology 01/18/19 Mini Frazier MD [address] [place] [phone] Gastroenterology 08/05/19 Maxi Tate MD [address] [address] Assigned Surgical Provider 06/08/20 documented as of this encounter
--- OUTSIDE RECORDS SUMMARY | 2024-11-29 17:13 | XMS_ITS | Encounter Summary ---
Author Organization [facility] Address [address] [place] [address] Care Team Providers Care Wood Floor Layer Name Role Phone Maxi Tate MD Unavailable [phone] Lela Zapata RN Unavailable Unavailable Mini Frazier MD Unavailable [phone] Maxi Tate MD Unavailable [phone] Mickey Mills MD Primary Care Provider [phone] Reason for Referral * Consultation (Routine: Next available opening) - Pending Review Specialty Diagnoses / Procedures Referred By Contbret t Referred To Contact Pain Medicine Diagnoses Tongue cancer (H) Lesion of tongue Maxi Tate MD 420 [facility] 396 [place] [address] Phone: tel: fax: Referral ID Status Reason Start Date Expiration Date V isits Requested Visits Authorized [id number] Pending Review 11/01/2024 11/01/2025 1 1 Question Answer Reason for Referral: Cancer-Related Pain Provider, please review opioid agreement in the process instructions above. Do you agree to these terms? Yes Patient Scheduling Instructions: [employer] will call you to coordinate care as prescribed your provider. If you don t hear from a bilingual sales representative within 2 business days, please call . Additional Information: recurrent oral tongue lesions that cause intense pain - verrucous carcinoma Comments [facility] will call you to coordinate care as prescribed your provider. If you don t hear from a bilingual sales representative within 2 business days, please call . Encounter Details Date Type Department Care Team (Late st Contact Info) Description 11/01/2024 10:15 AM CDT Office Visit [facility] [address] 4th [place] [address] Maxi Tate MD 420 [facility] 396 [place] [address] Claudette infection (Primary Dx); Tongue cancer (H); Lesion of tongue Social History Tobacco Use Types Packs/Day Years [...] PM CDT Legal Sex Female 5:02 PM BAR HOST/HOSTESS Gender Identity Female 10/22/2019 10:44 AM BAR HOST/HOSTESS Sexual Orientation Straight 06/04/2019 11 :41 AM CDT documented as of this encounter Last Filed Vital Signs Vital Sign Reading Time Taken Comments Blood Pressure 178/80 11/01/2024 9:57 AM CDT Pulse 59 11/01/2024 9:57 AM CDT Temperature - - Respiratory Rate - - Oxygen Saturation 98% 11/01/2024 9:57 AM CDT Inhaled Oxygen Concentration - - Weight 74.2 kg (163 lb 9.6 oz) 11/01/2024 9:57 A M CDT Height 162.6 cm (5' 4) 11/01/2024 9:57 AM CDT Body Mass Index 28.08 11/01/2024 9:57 AM CDT documented in this encounter Progress Notes * Mxai Tate MD - 11/01/2024 10:15 AM CDT Images from the original note were not included. 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 She was last seen in ENT by me on 09/20/24. Today, she reports Review of Systems: Pertinent items are noted in HPI or as in patient entered ROS below, remainder of complete ROS is negative. 09/17/2024 6:52 PM ENT ROS Constitutional Problems with sleep Psychology Frequently feeling depressed or sad Musculoskeletal Sore or stiff joints Hematologic Easy bruising Endocrine Heat or cold intolerance Physical Exam: There were no vitals taken [...] Pinnae and tragus non-tender. EAC's and TM's were clear. Nose: Sinuses were non-tender. Anterior rhinoscopy revealed midline septum and absence of purulenceor polyps. OC/OP: Normal tongue, floor of mouth, buccal mucosa, and palate. No lesions or masses on inspectionor palpation. No abnormal lymph tissue in the oropharynx. The pterygoid region is non-tender. Neck: Supple with normal laryngeal and tracheal landmarks. The parotid beds were without masses. Nopalpable thyroid. Lymphatic: There is no palpable lymphadenopathy in the neck. Assessment and Plan: No diagnosis found. 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 Follow-up: No follow-ups on file. See dictation Scribe Disclosure: Karla Hodges, am serving as a scribe to document services personally performed by Maxi Tate MD at this visit, based upon the provider's statements to me. All documentation has been reviewed by the aforementioned provider prior to being entered into the official medical record. * Maxi Tate MD - 11/01/2024 10:15 AM CDT Teaching Flowsheet - ENT Relevant Diagnosis: tongue lesion Teaching Topic:Person(s) involved in teaching: patient and Motivation Level: Asks Questions: Yes Eager to Learn: Yes Cooperative: Yes Receptive (willing/able to accept information): Yes Comments: Reviewed pre-op H and P, NPO prior to surgery, pre-op scrub (given Hibiclens) Reviewed post-op cares , activity and pain. Patient demonstrates understanding of the following: Reason for the appointment, diagnosis and treatment plan: Yes Knowledge of proper use of medications and conditions for which they are ordered (with special attention to potential side effects or drug interactions): stop aspirin products 1 week before surgery Yes Which situations necessitate calling provider and whom to contact: Yes Nutritional needs and diet plan: Yes Pain management techniques: Yes Patient instructed on hand hygiene: Yes How and/when to access community resources: Yes Infection Prevention: Patient demonstrates understanding of the following: Surgical procedure site care taught Yes Signs and symptoms of infection taught Yes Wound care taught Yes Instructional Materials Used/Given: verbal instruction. * Maxi Tate MD - 11/01/2024 10:15 AM CDT Kelly Langley is having some anterior tongue discomfort that is different from her previous findings a few weeks ago. On physical examination the tongue there is a 2-1/2 cm dorsal tongue lesion and its tip it looks verrucous it looks like it has some angiogenesis around it does not appear to invade but it is quite tender. No other changes are seen in the oral cavity today. Assessment patient with a history of oral cavity lesion because of the change in and the fact that has not responded to typical measures I am going to give her clobetasol which may or may not work and she may not choose to use it along with refill of subnarcotic as well as a Mycelex and if this is that clearly things help I think the dorsal of the tongue area at its tip and needs to be removed this is different from areas somewhat that we have taken out recently. That were verrucous cancers. documented in this encounter Miscellaneous Notes * Addendum Note - Maxi Tate MD - 11/01/2024 10:15 AM CDTAddended by: MAXI TATE on: 11/08/2024 04:24 PM Modules accepted: Orders documented in this encounter Plan of Treatment Upcoming Encounters Date Type Department Care Team (Late st Contact Info) Description 12/26/2024 9:30 AM CDT Office Visit [facility] [place] [address] [facility] [address] [place] [address] Galina Lopez APRN SHEET METAL WORK FURNACE INSTALLER 1600 [facility] 101 [place] [address] Scheduled Referrals Name Type Priority Associated Diagnoses Orde r Schedule Pain Management [employer] Team Member Referral Referral Routine: Next available opening Tongue cancer (H) Lesion of tongue Expected: 11/01/2024 (Approximate), Expires: 11/01/2025 documented as of this encounter Visit Diagnoses Diagnosis Claudette infection- Primary Candidiasis of unspecified site 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, unspecified site Lesion of tongue Other specified conditions of the tongue documented in this encounter Additional Health Concerns Assessment Noted Time PHQ-9 Depression Total Score: 8 08/23/19 25 12:02 PM BAR HOST/HOSTESS documented as of this encounter Care Teams Wood Floor Layer Relationship Specialty Start Date End Date Mickey Mills MD [address] [place] [phone] PCP - General 07/13/23 aMxi Tate MD [address] [place] [address] Otolaryngology 10/31/16 Lela Zapata, SHAREE Specialty Triage Clinician ENT-Otolaryngology 01/18/19 Mini Frazier MD [address] [place] [phone] Gastroenterology 08/05/19 Maxi Tate MD [address] [phone] Assigned Surgical Provider 06/08/20 documented as of this encounter
--- OUTSIDE RECORDS SUMMARY | 2024-11-29 17:13 | XMS_ITS | Encounter Summary ---
Author Organization [facility] Address [address] [place] [address]. [place] [address] Care Team Providers Care Poultry Process Worker Name Role Phone Maxi Tate MD Unavailable [phone] Lela Zapata RN Unavailable Unavailable Mini Frazier MD Unavailable [phone] Maxi Tate MD Unavailable [phone] Mickey Mills MD Primary Care Provider Encounter Details Date Type Department Care Team (Late st Contact Info) Description 08/11/2024 [facility] Medical Advice [facility] N[facility] Th[facility] Clinic [address] 4th [place] [address] Maxi Tate MD 420 [facility] 396 [place] [address] Social History Tobacco Use Types [...] PM CDT Legal Sex Female 5:02 PM BALCONY WORKER Gender Identity Female 10/22/2019 10:44 AM BALCONY WORKER Sexual Orientation Straight 06/04/2019 11 :41 AM CDT documented as of this encounter Plan of Treatment Upcoming Encounters Date Type Department Care Team (Late st Contact Info) Description 12/26/2024 9:30 AM CDT Office Visit [facility] Pain Management [place] [address] [place] [address] [address] [place] [address] Galina Lopez APRN BOOKING MANAGER 1600 [facility] 101 [place] [address] documented as of this encounter Visit Diagnoses Not on filedocumented in this encounter Additional Health Concerns Assessment Noted Time PHQ-9 Depression Total Score: 15 024 2:52 PM BALCONY WORKER documented as of this encounter Care Teams Poultry Process Worker Relationship Specialty Start Date End Date Mickey Mills MD [address] [place] [phone] PCP - General 07/13/23 Maxi Tate MD 420 [facility] 396 [place], [place] [phone] Otolaryngology 10/31/16 Lela Zapata, SHAREE Specialty Independent Producer ENT-Otolaryngology 01/18/19 Mini Frazier MD [address] [place] [address] Gastroenterology 08/05/19 Maxi Tate MD [address] [place] [address] 396 [place], [place] [phone] Assigned Surgical Provider 06/08/20 documented as of this encounter
== END 2024-11-29 17:08 | disposition home or self-care (01) ==
LOC: ED 17:06
PROVIDERS: Emergency Provider Family Medicine; PCP Family Medicine
DX: I80.8 Phlebitis and thrombophlebitis of other sites (principal)
CPT/HCPCS: 99282; 99283; 99284